=== PATIENT | male | born 1970 | race Caucasian/White ===

== ENCOUNTER 2022-04-17 10:56 | Outpatient (REF) | payer BC, SELFPAY ==
[2022-04-17 11:07] LABS: MANUAL DIFF FLAG NO
[2022-04-17 11:23] LABS: Appearance Urine Clear; Color Urine Yellow; Glucose Urine UA Negative (Negative); Leukocyte Esterase Urine Negative (Negative); Nitrite Urine Negative (Negative); Specific Gravity - Urine >= 1.030 (1.005-1.025); Urine Blood Negative (Negative); Urine Ketones Trace mg/dL (Negative); Urine Protein Trace mg/dL (Neg-Trace)
[2022-04-17 11:25] LABS: Basophils Absolute Auto 0.1 X10*3/uL (0.0-0.2); Basophils Percent Auto 0.7 % (0-2); Eosinophils Absolute Auto 0.4 X10*3/uL (0.0-0.4); Eosinophils Percent Auto 6.2 % (0-4); Hematocrit 38.9 % (42.0-52.0); Hemoglobin 13.4 g/dl (14.0-18.0); Imm Gran Abs Auto 0.02 X10*3/uL (0.00-0.03); Imm Gran Pct Auto 0.3 % (0.0-0.4); Lymphocytes Absolute Auto 2.2 X10*3/uL (1.2-4.9); Lymphocytes Percent Auto 30.2 % (20-40); Mean Corpuscular HGB Conc 34.4 g/dl (31.0-36.0); Mean Corpuscular Hemoglobin 30.7 pg (27.0-33.0); Mean Platelet Volume 10.3 fL (9.4-12.4); Monocytes Absolute Auto 0.6 X10*3/uL (0.1-1.2); Monocytes Percent Auto 8.4 % (2-11); Neutrophils Absolute Auto 3.9 x10*3/uL (2.0-8.3); Neutrophils Percent Auto 54.2 % (45-73); Platelet Count 245 X10*3/uL (160-400); Red Blood Count 4.37 X10*6/uL (4.60-5.80); Red Cell Distribution Width 13.2 % (11.0-16.0); White Blood Count 7.2 X10*3/uL (4.8-10.8)
[2022-04-17 11:26] LABS: Bacteria Urine None Seen (None Seen); RBC Urine 0-2 /HPF (0-2); Squamous Epithelial Cell Urine 0-2 /HPF (0-2); WBC Urine 0-5 /HPF (0-5)
[2022-04-17 11:59] LABS: Estimated Average Glucose 171 mg/dL; Hemoglobin A1c % 7.6 %
[2022-04-17 12:59] LABS: Alanine Aminotransferase 47 U/L (0-40); Alkaline Phosphatase 71 U/L (39-117); Anion Gap 13 (12-20); Aspartate Amino Transferase 27 U/L (5-37); Bilirubin Total 0.6 mg/dL (0.0-1.0); Blood Urea Nitrogen 16 mg/dL (9-16); Calcium 9.2 mg/dL (8.4-10.2); Carbon Dioxide 22 mmol/L (22-29); Chloride 108 mmol/L (96-108); Cholesterol 119 mg/dL; Estimated Glomerular Filt Rate > 60; Glucose Fasting 171 mg/dL (60-99); HDL Cholesterol 35 mg/dL; LDL Cholesterol Calculated 54 mg/dl; Potassium 4.2 mmol/L (3.3-5.1); Sodium 139 mmol/L (135-145); Total Protein 6.4 g/dL (6.5-8.0); Triglycerides 150 mg/dL
[2022-04-17 13:03] LABS: PSA,Total (Free>4and<10) 0.17 ng/mL (0.00-4.00)
[2022-04-17 16:18] LABS: Creatinine Urine 225.39 mg/dL; Microalbum/Creatinine Ratio Ur 8.4 ug/mg cr
== END 2022-04-17 10:57 | disposition home or self-care (01) ==
LOC: HO.LNP 10:56
PROVIDERS: Visit Provider Internal Medicine
DX: Z00.00 Encounter for general adult medical examination without abnormal findings (principal); Z12.5 Encounter for screening for malignant neoplasm of prostate; E11.9 Type 2 diabetes mellitus without complications; K21.00 Gastro-esophageal reflux disease with esophagitis, without bleeding
CPT/HCPCS: 80053; 80061; 81001; 82043; 83036; 84153; 85025

== ENCOUNTER 2022-05-11 13:30 | Outpatient (REF) | payer BC, SELFPAY ==
[2022-05-11 15:12] LABS: Lipase 46 U/L (8-78)
[2022-05-17 13:09] LABS: Vitamin D 25-OH, D2 21 ng/mL; Vitamin D 25-OH, D3 11 ng/mL; Vitamin D 25-OH, Total 32 ng/mL (30-100)
[2022-05-17 13:27] LABS: Transglutaminase Ab IgG <1.0 U/mL; Transglutaminase IgA <1.0 U/mL
== END 2022-05-11 13:31 | disposition home or self-care (01) ==
LOC: HO.LAB 13:30
PROVIDERS: PCP Internal Medicine; Visit Provider Nurse Practitioner Family
DX: R10.9 Unspecified abdominal pain (principal); K21.9 Gastro-esophageal reflux disease without esophagitis; E55.9 Vitamin D deficiency, unspecified
CPT/HCPCS: 36415; 82306; 83690; 86364

== ENCOUNTER 2023-04-18 11:08 | Outpatient (REF) | payer BC, SELFPAY ==
[2023-04-18 11:10] LABS: MANUAL DIFF FLAG NO
[2023-04-18 11:22] LABS: Basophils Absolute Auto 0.1 X10*3/uL (0.0-0.2); Basophils Percent Auto 0.6 % (0-2); Eosinophils Absolute Auto 0.4 X10*3/uL (0.0-0.4); Eosinophils Percent Auto 4.5 % (0-4); Hematocrit 41.3 % (42.0-52.0); Hemoglobin 14.2 g/dl (14.0-18.0); Imm Gran Abs Auto 0.03 X10*3/uL (0.00-0.03); Imm Gran Pct Auto 0.3 % (0.0-0.4); Lymphocytes Absolute Auto 2.2 X10*3/uL (1.2-4.9); Lymphocytes Percent Auto 24.1 % (20-40); Mean Corpuscular HGB Conc 34.4 g/dl (31.0-36.0); Mean Corpuscular Hemoglobin 29.6 pg (27.0-33.0); Mean Corpuscular Volume 86.2 fL (80.0-98.0); Monocytes Absolute Auto 0.6 X10*3/uL (0.1-1.2); Monocytes Percent Auto 6.9 % (2-11); Neutrophils Absolute Auto 5.9 x10*3/uL (2.0-8.3); Neutrophils Percent Auto 63.6 % (45-73); Platelet Count 238 X10*3/uL (160-400); Red Blood Count 4.79 X10*6/uL (4.60-5.80); Red Cell Distribution Width 12.8 % (11.0-16.0); White Blood Count 9.3 X10*3/uL (4.8-10.8)
[2023-04-18 11:29] LABS: Estimated Average Glucose 157 mg/dL; Hemoglobin A1c % 7.1 % (<6.0)
[2023-04-18 11:42] LABS: Alanine Aminotransferase 49 U/L (0-40); Albumin Level 4.1 g/dL (3.5-5.0); Alkaline Phosphatase 76 U/L (39-117); Anion Gap 12 (12-20); Aspartate Amino Transferase 36 U/L (5-37); Bilirubin Total 0.7 mg/dL (0.0-1.0); Blood Urea Nitrogen 14 mg/dL (9-16); Calcium 9.8 mg/dL (8.4-10.2); Carbon Dioxide 24 mmol/L (22-29); Chloride 108 mmol/L (96-108); Estimated Glomerular Filt Rate > 60; Glucose Random 132 mg/dL (60-115); Potassium 3.9 mmol/L (3.3-5.1); Sodium 140 mmol/L (135-145); Total Protein 6.8 g/dL (6.5-8.0)
[2023-04-18 11:54] LABS: PSA,Total (Free>4and<10) 0.17 ng/mL (0.00-4.00)
== END 2023-04-18 11:09 | disposition home or self-care (01) ==
LOC: HO.LNP 11:08
PROVIDERS: Visit Provider Internal Medicine
DX: Z00.00 Encounter for general adult medical examination without abnormal findings (principal); Z12.5 Encounter for screening for malignant neoplasm of prostate
CPT/HCPCS: 80053; 83036; 84153; 85025

== ENCOUNTER 2023-08-05 13:10 | Outpatient (REF) | payer BC, SELFPAY ==
[2023-08-05 13:13] LABS: MANUAL DIFF FLAG NO
[2023-08-05 13:45] LABS: Basophils Absolute Auto 0.1 X10*3/uL (0.0-0.2); Basophils Percent Auto 0.7 % (0-2); Eosinophils Absolute Auto 0.8 X10*3/uL (0.0-0.4); Eosinophils Percent Auto 7.7 % (0-4); Hematocrit 32.3 % (42.0-52.0); Hemoglobin 10.7 g/dl (14.0-18.0); Imm Gran Abs Auto 0.04 X10*3/uL (0.00-0.03); Imm Gran Pct Auto 0.4 % (0.0-0.4); Lymphocytes Absolute Auto 2.2 X10*3/uL (1.2-4.9); Lymphocytes Percent Auto 21.4 % (20-40); Mean Corpuscular HGB Conc 33.1 g/dl (31.0-36.0); Mean Corpuscular Hemoglobin 27.5 pg (27.0-33.0); Mean Platelet Volume 10.3 fL (9.4-12.4); Monocytes Absolute Auto 0.9 X10*3/uL (0.1-1.2); Monocytes Percent Auto 9.4 % (2-11); Neutrophils Absolute Auto 6.1 x10*3/uL (2.0-8.3); Neutrophils Percent Auto 60.4 % (45-73); Platelet Count 312 X10*3/uL (160-400); Red Blood Count 3.89 X10*6/uL (4.60-5.80); Red Cell Distribution Width 14.5 % (11.0-16.0)
[2023-08-05 14:08] LABS: Iron 29 mcg/dL (45-160); Percent Iron Saturation 5 % (15-50); Total Iron Binding Capacity 529 mcg/dL (228-428); Unsaturated Iron Binding > 500 ug/dL
== END 2023-08-05 13:11 | disposition home or self-care (01) ==
LOC: HO.LNP 13:10
PROVIDERS: Visit Provider Internal Medicine
DX: D64.9 Anemia, unspecified (principal)
CPT/HCPCS: 83540; 85025

== ENCOUNTER 2023-08-19 11:11 | Outpatient (REF) | payer BC, SELFPAY ==
[2023-08-19 11:12] LABS: MANUAL DIFF FLAG NO
[2023-08-19 11:39] LABS: Basophils Absolute Auto 0.1 X10*3/uL (0.0-0.2); Basophils Percent Auto 0.5 % (0-2); Eosinophils Absolute Auto 0.1 X10*3/uL (0.0-0.4); Eosinophils Percent Auto 0.7 % (0-4); Hematocrit 34.8 % (42.0-52.0); Imm Gran Abs Auto 0.09 X10*3/uL (0.00-0.03); Imm Gran Pct Auto 0.5 % (0.0-0.4); Lymphocytes Absolute Auto 2.9 X10*3/uL (1.2-4.9); Lymphocytes Percent Auto 15.2 % (20-40); Mean Corpuscular HGB Conc 31.6 g/dl (31.0-36.0); Mean Corpuscular Hemoglobin 26.8 pg (27.0-33.0); Mean Corpuscular Volume 84.7 fL (80.0-98.0); Mean Platelet Volume 10.6 fL (9.4-12.4); Monocytes Absolute Auto 1.3 X10*3/uL (0.1-1.2); Monocytes Percent Auto 6.5 % (2-11); Neutrophils Absolute Auto 14.7 x10*3/uL (2.0-8.3); Neutrophils Percent Auto 76.6 % (45-73); Platelet Count 325 X10*3/uL (160-400); Red Blood Count 4.11 X10*6/uL (4.60-5.80); Red Cell Distribution Width 14.6 % (11.0-16.0); White Blood Count 19.2 X10*3/uL (4.8-10.8)
== END 2023-08-19 11:12 | disposition home or self-care (01) ==
LOC: HO.LNP 11:11
PROVIDERS: Visit Provider Internal Medicine
DX: D64.9 Anemia, unspecified (principal)
CPT/HCPCS: 85025

== ENCOUNTER 2023-08-22 15:46 | Outpatient (REF) | payer BC, SELFPAY ==
[2023-08-22 15:52] LABS: MANUAL DIFF FLAG NO
[2023-08-22 16:07] LABS: Basophils Absolute Auto 0.1 X10*3/uL (0.0-0.2); Basophils Percent Auto 0.6 % (0-2); Eosinophils Absolute Auto 0.7 X10*3/uL (0.0-0.4); Eosinophils Percent Auto 6.6 % (0-4); Hematocrit 33.4 % (42.0-52.0); Hemoglobin 10.7 g/dl (14.0-18.0); Imm Gran Abs Auto 0.03 X10*3/uL (0.00-0.03); Imm Gran Pct Auto 0.3 % (0.0-0.4); Lymphocytes Absolute Auto 2.5 X10*3/uL (1.2-4.9); Lymphocytes Percent Auto 25.4 % (20-40); Mean Corpuscular Hemoglobin 26.6 pg (27.0-33.0); Mean Corpuscular Volume 82.9 fL (80.0-98.0); Mean Platelet Volume 10.7 fL (9.4-12.4); Monocytes Absolute Auto 0.6 X10*3/uL (0.1-1.2); Monocytes Percent Auto 5.9 % (2-11); Neutrophils Percent Auto 61.2 % (45-73); Platelet Count 384 X10*3/uL (160-400); Red Blood Count 4.03 X10*6/uL (4.60-5.80); Red Cell Distribution Width 14.3 % (11.0-16.0); White Blood Count 9.8 X10*3/uL (4.8-10.8)
== END 2023-08-22 15:47 | disposition home or self-care (01) ==
LOC: HO.LNP 15:46
PROVIDERS: Visit Provider Internal Medicine
DX: R39.9 Unspecified symptoms and signs involving the genitourinary system (principal)
CPT/HCPCS: 85025

== ENCOUNTER 2023-08-23 10:22 | Outpatient (REF) | payer BC, SELFPAY ==
[2023-08-23 10:54] LABS: Appearance Urine Cloudy; Color Urine Yellow; Glucose Urine UA Negative (Negative); Leukocyte Esterase Urine Moderate (2+) (Negative); Nitrite Urine Negative (Negative); Specific Gravity - Urine 1.015 (1.005-1.025); UMIC TRIGGER UA YES; Urine Blood Negative (Negative); Urine Ketones Negative (Negative); Urine Protein 30 (1+) mg/dL (Neg-Trace)
[2023-08-23 11:00] LABS: Bacteria Urine 4+ (None Seen); Hyaline Casts Urine 0-2 /LPF (0-2); RBC Urine 0-2 /HPF (0-2); Squamous Epithelial Cell Urine 0-2 /HPF (0-2); WBC Urine >50 /HPF (0-5)
== END 2023-08-23 10:23 | disposition home or self-care (01) ==
LOC: HO.LNP 10:22
PROVIDERS: Visit Provider Internal Medicine
DX: R39.9 Unspecified symptoms and signs involving the genitourinary system (principal)
CPT/HCPCS: 81001; 87086; 87088; 87186

== ENCOUNTER 2023-10-14 10:58 | Outpatient (REF) | payer BC, SELFPAY ==
[2023-10-14 11:48] LABS: Estimated Average Glucose 120 mg/dL; Hemoglobin A1c % 5.8 % (<6.0)
[2023-10-14 11:54] LABS: Alanine Aminotransferase 27 U/L (0-40); Albumin Level 4.1 g/dL (3.5-5.0); Alkaline Phosphatase 72 U/L (39-117); Aspartate Amino Transferase 33 U/L (5-37); Bilirubin Direct 0.1 mg/dL (0.0-0.5); Bilirubin Total 0.4 mg/dL (0.0-1.0); Cholesterol 97 mg/dL (<200); Glucose Fasting 139 mg/dL (60-99); HDL Cholesterol 37 mg/dL (>40); Iron 97 mcg/dL (45-160); LDL Cholesterol Calculated 28 mg/dL (<100); Percent Iron Saturation 38 % (15-50); Total Iron Binding Capacity 256 mcg/dL (228-428); Triglycerides 161 mg/dL (<150); Unsaturated Iron Binding 159 ug/dL
[2023-10-14 12:37] LABS: Reflex LDLD? No
== END 2023-10-14 10:59 | disposition home or self-care (01) ==
LOC: HO.LNP 10:58
PROVIDERS: Visit Provider Internal Medicine
DX: E11.9 Type 2 diabetes mellitus without complications (principal); D64.9 Anemia, unspecified
CPT/HCPCS: 80061; 80076; 82947; 83036; 83540

== ENCOUNTER 2024-04-21 07:00 | Outpatient (REF) | payer BC, SELFPAY ==
[2024-04-21 10:47] LABS: MANUAL DIFF FLAG NO
[2024-04-21 11:03] LABS: Basophils Percent Auto 0.7 % (0-2); Eosinophils Absolute Auto 0.6 X10*3/uL (0.0-0.4); Eosinophils Percent Auto 9.7 % (0-4); Hematocrit 42.1 % (42.0-52.0); Hemoglobin 14.2 g/dl (14.0-18.0); Imm Gran Abs Auto 0.02 X10*3/uL (0.00-0.03); Imm Gran Pct Auto 0.3 % (0.0-0.4); Lymphocytes Absolute Auto 1.9 X10*3/uL (1.2-4.9); Lymphocytes Percent Auto 31.4 % (20-40); Mean Corpuscular HGB Conc 33.7 g/dl (31.0-36.0); Mean Corpuscular Volume 86.1 fL (80.0-98.0); Monocytes Absolute Auto 0.4 X10*3/uL (0.1-1.2); Monocytes Percent Auto 7.1 % (2-11); Neutrophils Absolute Auto 3.1 x10*3/uL (2.0-8.3); Neutrophils Percent Auto 50.8 % (45-73); Platelet Count 209 X10*3/uL (160-400); Red Blood Count 4.89 X10*6/uL (4.60-5.80); Red Cell Distribution Width 13.5 % (11.0-16.0); White Blood Count 6.1 X10*3/uL (4.8-10.8)
[2024-04-21 11:17] LABS: Appearance Urine Clear; Color Urine Yellow; Glucose Urine UA Negative (Negative); Leukocyte Esterase Urine Negative (Negative); Nitrite Urine Negative (Negative); PH 6.5 (5.0-9.0); Urine Blood Negative (Negative); Urine Ketones Negative (Negative); Urine Protein Negative (Neg-Trace)
[2024-04-21 11:18] LABS: Estimated Average Glucose 169 mg/dL; Hemoglobin A1C 219.7011 umol/L; Hemoglobin A1c % 7.5 % (<6.0); Total Hemoglobin (HGBA1C) 3748.7475 umol/L
[2024-04-21 11:32] LABS: Alanine Aminotransferase 46 U/L (0-40); Anion Gap 11 (12-20); Aspartate Amino Transferase 57 U/L (5-37); Bilirubin Total 0.7 mg/dL (0.0-1.0); Blood Urea Nitrogen 10 mg/dL (9-16); Calcium 8.8 mg/dL (8.4-10.2); Carbon Dioxide 21 mmol/L (22-29); Chloride 110 mmol/L (96-108); Cholesterol 136 mg/dL (<200); Estimated Glomerular Filt Rate > 60; Glucose Fasting 158 mg/dL (60-99); HDL Cholesterol 29 mg/dL (>40); LDL Cholesterol Calculated 84 mg/dL (<100); Potassium 3.7 mmol/L (3.3-5.1); Sodium 138 mmol/L (135-145); Triglycerides 117 mg/dL (<150)
[2024-04-21 11:37] LABS: PSA,Total (Free>4and<10) 0.15 ng/mL (0.00-4.00)
[2024-04-21 11:41] LABS: Alkaline Phosphatase 76 U/L (39-117)
--- OUTSIDE RECORDS SUMMARY | 2024-04-21 12:12 | XMS_ITS | Data Portability ---
Author Organization [place] [facility], [facility] Address [address] [place] [address] Care Team Providers Care Cut Out Stitcher Name Role Phone PB FRAIRE Primary Care Provider Assessment Encounter Date Assessment Date Assessment LastModified by Organization Details LastModified Time 11/28/2023 11/28/2023 Assessment : Pt able to perform step ex today on L3. Plan : Cont to focus on LE strengthening and balance. (12/04). [email or web address] Not available 11/27/2023 16:22:29 12/05/2023 12/05/2023 Assessment : Pt demonstrates all ex's well and w/good technique. Plan : D/C today. [email or web address] Not available 12/05/2023 07:57:00 12/26/2023 12/26/2023 History: The patient is approximately 6 months status post a left total knee arthroplasty and presents for routine follow-up per our request. Knee is doing better. Had a possible postoperative DVT and/or PE. Apparently tests were inconclusive. No longer on anticoagulation. Takes ibuprofen for discomfort as needed. Swelling and motion have improved. Completed outpatient therapy. His primary complaint is a sensation of instability or imbalance. This was very noticeable when he was golfing and mowing his lawn. He had told me in the past that he had significant balance issues preoperatively but he feels they are worse now. He feels like it is a side to side imbalance and not in extension and flexion imbalance due to weakness. PMH/PSH/MEDS/ALL/ FMH/SOC HX/ROS all reviewed in detail per my medical intake sheet. ROS: The patient denies fevers, chills, neurovascular changes, history of trauma. Exam: Vitals signs as noted. Alert and oriented x3. Appears well and in no acute distress. Extremities: Incision is well-healed. Calves are soft and nontender. No evidence of DVT. No lower extremity edema. Neurovascular status at baseline. Range of motion is 0-125 easily. Ligaments are stable to varus and valgus stresses. These were stressed multiple times and there is no sign of instability. No significant effusion. Quad strength is 5 out of 5 with no lag X-rays: Radiographs were not obtained today. Assessment: The patient is doing well by all objective criteria approximately 6 months s/p TKA. He has complaints of balance issues which are disrupting his quality of life significantly. I have found nothing on examination to explain this. Plan: I have prescribed a patient in economy hinged brace to help support the collateral ligaments. He is instructed to wear this when he is being active to see if this rectifies the sensation of instability that he feels. The patient is ambulatory, but has weakness and/or instability of their extremity which requires stabilization from this semi-rigid/rigid orthosis to improve their function. Verbal and written instructions for the use and application of this item were given. Patient was instructed that should the brace result in increased pain, decreased sensation, increased swelling or an overall worsening of their medical condition, to please contact our office immediately. The patient will continue with a home exercise program for additional strengthening and conditioning. Otherwise, the patient will continue with activity as tolerated. The patient was advised to take occasional OTC acetaminophen for residual discomfort. The potential benefits, risks, and side effects were explained at length. Total knee replacement activity precautions were reviewed. The need for antibiotic prophylaxis for dental visits was discussed. Patient will return in 6-8 weeks after wearing the brace. [email or web address] Not available 12/27/2023 15:46:09 04/09/2024 04/09/2024 I am seeing the patient today under the supervision of Dr Sanabria who was available but who did not see the patient. Patient follows up. Previously was seen by Amadou. Patient still complains of similar symptoms. Diclofenac's help in his compression sleeve is helping. Pain mainly laterally. Mildly tender medial tibial plateau. Full range of motion. Limits are stable post is intact. X-rays were reviewed by myself today. Patient's main complaint is laterally over his ITB in. After long discussion we decided to inject the lateral IT band under sterile technique please see procedure note. She was also given IT band stretches will continue current submerge refrain from taking diclofenac to see if the cortisone is going to help his symptoms. We will follow up in 6 weeks [email or web address] Not available 04/09/2024 08:38:29 Plan of Treatment Reminders Order Date Submit Date Provider Last Modified By Organization Details Last Modified Time Details Appointments RECHECK 15 2024 08:00A Royer Gonzalez PA-C Not available Not available Not available Lab None recorded. Referral None recorded. Procedures None recorded. Surgeries None recorded. Imaging XR, knee, 3 view - left knee rm 208 2023 024 thiago [facility], [address] [place] [address], [address], 02/24/2024 12:18:46 Medication Orders diclofena c sodium 75 mg tablet,de layed release 2023 024 [id number], [address] [place] [address], [address], 02/24/2024 11:14:06 Patient TargetsNo targets recorded. Patient InstructionsNo instructions recorded. Reason for Referral None Reported. Results Created Date Observation Date Name Description Value Unit Range Abnormal Flag Note LastModifiedBy Organization Detail LastModifiedTime 11/30/19 24 09/30/2020 imagi ng/di agnos tic resul t No observ ation record ed. [email or web address] Not Available 11/01 05:12:04 11/30/19 24 12/06/2022 imagi ng/di agnos tic resul t No observ ation record ed. [email or web address] Not Available 11/01 05:12:21 02/24/20 24 02/24/2024 XR, knee, 3 view [email or web address] ?Encry pted=s hAaTro YD8dLq bEUv6g %2BXZw aYqtaq 0bqfl% 2Fg9IQ a4ajBk vP9nXo QUaueC m3YtLR FvZlgJ JJ8mAn HZtai3 6p9721 AC0Kqa XmGUqe lKiQtr MwF INTERFACE [facility] [address], [place], [address], 02/24/2024 10:52:09 02/24/20 24 02/24/2024 XR, knee, 3 view [email or web address] ?Encry pted=s hAaTro YD8dLq bEUv6g %2BXZw aYqtaq 0bqfl% 2Fg9IQ a4ajBk vP9nXo QUaueC m3YtLR FvZlgJ JJ8mAn HZtai3 3c3671 AC0Kqa XmGUqe lKiQtr MwF INTERFACE [facility] [address], [place], [address], 02/24/2024 10:52:11 Result Notes None recorded. Problems Name Problem SNOMED Code Status Onset Date Resolution Date Notes Provider Name and Address Organization Details Recorded Time Pain of knee region 4423122916 Active 2024 Lorenzo Gonzalez PA-C [address], [place], [address], [facility] 5 08:38:36 Osteoarthri tis of left knee joint 3697072612459 09 Active 2023 maura burton [facility] 4 11:22:06 Candidiasis of mouth 75249491 Active 2023 Perla Bashir APRN [address], [place], [address], [facility] 4 11:45:07 Problem Notes None recorded. Procedures Surgical History Date Name Laterality Status Provider Name and Address Organization Details Recorded Time 4 47420 Therapeutic Exercise (1:1) completed Larry Lindo PT [address], [place], [address], [facility] 09/25/2023 16:11:13 4 10668: Hot or Cold Pack completed Larry Pyser, PT [address], [place], [address], [facility] 09/25/2023 16:11:13 4 77805 Therapeutic Exercise (1:1) completed Larry Pyser, PT [address], [place], [address], [facility] 09/23/2023 18:41:41 4 42304: Hot or Cold Pack completed Larry Pyser, PT [address], [place], [address], [facility] 09/24/2023 16:49:14 4 19677 Therapeutic Exercise (1:1) completed Brenda Slatery, STOCK SAW OPERATOR [address], [place], [address], [facility] 09/20/2023 09:08:23 4 09533: Hot or Cold Pack completed Brenda Slatery, STOCK SAW OPERATOR [address], [place], [address], [facility] 09/20/2023 09:08:20 4 30854 Therapeutic Exercise (1:1) completed Larry Pyser, PT [address], [place], [address], [facility] 09/13/2023 07:43:25 4 98283: Hot or Cold Pack completed Larry Pyser, PT [address], [place], [address], [facility] 09/13/2023 07:43:25 4 10799 Therapeutic Exercise (1:1) completed Larry Pyser, PT [address], [place], [address], [facility] 09/11/2023 12:07:33 4 70369: Hot or Cold Pack completed Larry Pyser, PT [address], [place], [address], [facility] 09/12/2023 08:55:04 4 58202 Therapeutic Exercise (1:1) completed Brenda Ansari, STOCK SAW OPERATOR [address], [place], [address], [facility] 09/05/2023 08:39:01 4 08552: Hot or Cold Pack completed Brenda Ansari, STOCK SAW OPERATOR [address], [place], [address], [facility] 09/05/2023 08:39:01 4 34654 Therapeutic Exercise (1:1) completed Brenda Ansari STOCK SAW OPERATOR [address], [place], [address], [facility] 09/02/2023 19:43:43 4 12897: Hot or Cold Pack completed Brenda Ansari STOCK SAW OPERATOR [address], [place], [address], [facility] 09/03/2023 14:28:22 4 09747 Therapeutic Exercise (1:1) completed Brenda Ansari STOCK SAW OPERATOR [address], [place], [address], [facility] 08/29/2023 12:57:50 4 44331: Hot or Cold Pack completed Brenda Ansari STOCK SAW OPERATOR [address], [place], [address], [facility] 08/30/2023 08:17:58 4 54548 Therapeutic Exercise (1:1) completed Brenda Ansari STOCK SAW OPERATOR [address], [place], [address], [facility] 08/21/2023 16:04:53 4 83426: Hot or Cold Pack completed Brenda Ansari STOCK SAW OPERATOR [address], [place], [address], [facility] 08/21/2023 16:04:53 4 14683 Therapeutic Exercise (1:1) completed Brenda Ansari, STOCK SAW OPERATOR [address], [place], [address], [facility] 08/20/2023 08:24:35 4 36749: Hot or Cold Pack completed Brenda Ansari, STOCK SAW OPERATOR [address], [place], [address], [facility] 08/20/2023 08:26:43 4 58897 Therapeutic Exercise (1:1) completed Larry Lindo, PT [address], [place], [address], [facility] 08/14/2023 08:17:11 4 43450: Hot or Cold Pack completed Larry Lindo, PT [address], [place], [address], [facility] 08/15/2023 08:48:46 4 11919: Manual therapy completed Larry Lindo, PT [address], [place], [address], [facility] 08/14/2023 08:33:15 4 63046 Therapeutic Exercise (1:1) cancelled Manuela Edwards PTA [address], [place], [address], [facility] 07/18/2023 18:37:56 4 71574: Hot or Cold Pack cancelled Manuela Edwards STOCK SAW OPERATOR [address], [place], [address], [facility] 07/18/2023 18:37:56 4 72014 Therapeutic Exercise (1:1) completed Candice Krishna, PT [address], [place], [address], [facility] 07/17/2023 10:40:02 4 06882: Hot or Cold Pack completed Candice Krishna, PT [address], [place], [address], [facility] 07/17/2023 10:40:11 4 17227 Therapeutic Exercise (1:1) completed Candice Krishna, PT [address], [place], [address], [facility] 07/16/2023 18:48:39 4 87683: Low complexity PT Eval completed Candice Krishna, PT [address], [place], [address], [facility] 07/16/2023 18:48:42 Imaging Results Imaging Date Name Status LastModified by Organiz ation Details LastModified Time 09/30/2020 imaging/diag nostic result completed Information not available 11/30/2023 05:12:04 12/06/2022 imaging/diag nostic result completed Information not available 11/30/2023 05:12:21 02/24/2024 XR, knee, 3 view completed INTERFACE [facility] [address], [place], [address], 02/24/2024 10:52:09 02/24/2024 XR, knee, 3 view completed INTERFACE [facility] [address], [place], [address], 02/24/2024 10:52:11 Procedure Notes None recorded. Medical Equipment None Reported. Allergies No known drug allergies Medications Name Sig Start Date Stop Date Status Note LastModified by Organization Details LastModified Time Prescriptio n - New 10/16 completed post op med list Not Available Not Available Not Available celecoxib 200 mg capsule 10/16 completed Not Available Not Available Not Available amoxicillin 500 mg capsule 12/25 completed Not Available Not Available Not Available atorvastati n 80 mg tablet TAKE 1 TABLET BY MOUTH EVERY DAY FOR 90 DAYS active Not Available Not Available No t Available nystatin 100,000 unit/mL oral suspension Take 5 mL 4 times a day by oral route for 7 days. 10/16 completed Not Available Not Available Not Available sildenafil 50 mg tablet TAKE 1 TABLET BY MOUTH ONCE A DAY NEEDED 30 DAYS active Not Available Not Available No t Available sulindac 150 mg tablet TAKE ONE TABLET BY MOUTH 2 TIMES A DASY FOR 30 DAYS active Not Available Not Available No t Available tramadol 50 mg tablet Take by oral route for 6 days. 10/16 completed Not Available Not Available Not Available sildenafil 100 mg tablet TAKE 1 TABLET BY MOUTH EVERY DAY NEEDED FOR 30 DAYS 10/16 completed Not Available Not Available Not Available cefadroxil 500 mg capsule TAKE 1 CAPSULE BY MOUTH EVERY 12 HOURS FOR 14 DAYS 10/16 completed Not Available Not Available Not Available potassium chloride ER 20 mEq tablet,exte nded release(par t/cryst) TAKE 1 TABLET BY MOUTH TWO TIMES A DAY 10/16 completed Not Available Not Available Not Available methocarbam ol 750 mg tablet 10/16 completed Not Available Not Available Not Available aspirin 325 mg tablet,kadie yed release TAKE 1 TABLET BY MOUTH TWICE A DAY DIRECTED 10/16 completed Not Available Not Available Not Available cephalexin 500 mg capsule TAKE 1 CAPSULE BY MOUTH EVERY 8 HOURS FOR 5 DAYS 10/16 completed Not Available Not Available Not Available pantoprazol e 40 mg tablet,kadie yed release TAKE 1 TABLET BY MOUTH EVERY DAY FOR 30 DAYS 12/25 completed Not Available Not Available Not Available pseudoephed rine-guaife nesin ER 80-700 mg tablet,exte nded release DO NOT DRIVE WHILE TAKING THIS MEDICATIO N 10/16 completed Statu s: 'Curr ent'; Not Available Not Available Not Available diclofenac sodium 75 mg tablet,kadie yed release Take 1 tablet twice a day by oral route for 60 days. active Not Available Not Available No t Available gabapentin 100 mg capsule TAKE 1 CAPSULE BY MOUTH THREE TIMES A DAY 10/16 completed Not Available Not Available Not Available Novolog U-100 Insulin aspart 100 unit/mL subcutaneou s solution INJECT 10 TO 20 UNITS TWICE A DAY active Not Available Not Available No t Available oxycodone 5 mg tablet Take by oral route for 7 days. 10/16 completed Not Available Not Available Not Available Novolog FlexPen U-100 Insulin aspart 100 unit/mL (3 mL) subcutaneou s INJECT 10 TO 20 UNITS SUBCUTANE OUSLY TWICE A DAY 10/16 completed Not Available Not Available Not Available tadalafil 10 mg tablet TAKE 1 TO 2 TABLETS BY MOUTH DAILY NEEDED FOR 30 DAYS active Not Available Not Available No t Available BD Ultra-Fine Mini Pen Needle 31 gauge x 3/16 USE 4 TIMES A DAY 10/16 completed Not Available Not Available Not Available Lantus Solostar U-100 Insulin 100 unit/mL (3 mL) subcutaneou s pen INJECT 50 UNITS UNDER THE SKIN EVERY DAY active Not Available Not Available No t Available oxycodone HCl-oxycodo ne-ASA 1-[address] WHILE TAKING THIS MEDICATIO N 10/16 completed Statu s: 'Curr ent'; Not Available Not Available Not Available Eliquis 5 mg tablet TAKE 1 TABLET BY MOUTH TWICE A DAY FOR 30 DAYS 2023 active Not Available Not Available Not Avai lable BD Ultra-Fine Micro Pen Needle 32 gauge x 1/4 USE DIRECTED 3 TIMES A DAY active Not Available Not Available No t Available Eliquis DVT-PE Treatment 30-Day Starter 5 mg (74 tablets) in dose pack TAKE 2 TABLETS BY MOUTH TWO TIMES A DAY FOR 7 DAYS THEN TAKE 1 TABLET BY MOUTH TWO TIMES A DAY THERELEELAE R. 10/16 completed Not Available Not Available Not Available FreeStyle Ray 2 Sensor kit USE DIRECTED CHANGE SENSOR EVERY 14 DAYS 12/25 completed Not Available Not Available Not Available Mounjaro 5 mg/0.5 mL subcutaneou s pen injector PLEASE SEE ATTACHED FOR DETAILED DIRECTION S active Not Available Not Available No t Available Mounjaro 2.5 mg/0.5 mL subcutaneou s pen injector INJECT 0.5 ML (2.5 MG TOTAL) UNDER THE SKIN EVERY 7 DAYS 12/25 completed Not Available Not Available Not Available FreeStyle Ray 3 Sensor device TO MONITOR BLOOD GLUCOSE, TO CHANGE THE SENSOR EVERY 14 DAYS FREESTYLE RAY 3 SENSOR active Not Available Not Available No t Available Vitals Date Recorded Body height Body mass index (BMI) Body weight Provider Name and Address Organization Details Last Updated DateTime 12/26/2023 184.15 cm 33.8 kg/m2 110295.87 g SULEMA GASTON [facility] 12/26/2023 13:48:29 Date Recorded Body height Body mass index (BMI) Body weight Provider Name and Address Organization Details Last Updated DateTime 02/24/2024 184.15 cm 33.8 kg/m2 318594.87 g Olivia Anneta [facility] 02/24/2024 10:38:32 Date Recorded Body height Body mass index (BMI) Body weight Provider Name and Address Organization Details Last Updated DateTime 04/09/2024 184.15 cm 33.8 kg/m2 426938.87 g Prem Ward [facility] 04/09/2024 08:15:41 Social History None recorded. Functional Status None recorded. Mental Status None recorded. Family History Nothing Reported. Medical History No medical history recorded. Past Encounters Encounter ID Performer Location Encounter Start Date Encounter Closed Date Diagnosis/Indication Diagnosis SNOMED-CT Code Diagnosis ICD10 Code Diagnosis Note [id number] Shakila Chan CNP [facility] 2nd floor [address] [place] [address] 06/17/2023 10:45:30 06/17/2023 11:03:33 Osteoarthritis of left knee joint 4265207526 52825 M17.12 [id number] Jeferson Birch MD [facility] 2nd floor [address] [place] [address] 06/17/2023 14:55:28 06/17/2023 15:13:20 Osteoarthritis of left knee joint 1831295234 86812 M17.12 [id number] Candice Krishna PT [facility] [address] [place] [address] 07/12/2023 15:15:46 07/12/2023 17:06:22 Follow-up orthopedic assessment 492685266 Z47.1 History of left total knee replacement 3426703532 625598 Z96.975 [id number] Candice Krishna PT [facility] [address] [place] [address] 07/16/2023 15:23:03 07/16/2023 17:14:58 Follow-up orthopedic assessment 576127008 Z47.1 History of left total knee replacement 1228464231 490260 Z96.365 [id number] Shereen Mcclendon PA-C [facility] [address] [place] [address] 07/18/2023 10:03:34 08/09/2023 14:07:20 History of left total knee replacement 3490729570 748428 Z96.652 Postoperative visit 1836 04150 Z48.89 [id number] Shereen Mcclendon PA-C [facility] [address] [place] [address] 08/01/2023 10:41:07 08/23/2023 15:13:34 Postoperative visit 407949640 Z48.89 Knee joint prosthesis present 8090797521 02 Z96.206 [id number] Larry Pyser, PT [facility] [address] [place] [address] 08/15/2023 07:46:35 08/15/2023 09:27:58 Follow-up orthopedic assessment 213211845 Z47.1 History of left total knee replacement 4682536805 260313 Z96.376 [id number] Shereen Mcclendon PA-C [facility] [address] [place] [address] 08/19/2023 08:30:52 09/11/2023 09:20:56 Postoperative visit 184129540 Z48.89 Knee joint prosthesis present 8883310814 02 Z96.540 [id number] Larry Pyser, PT [facility] [address] [place] [address] 08/20/2023 07:11:57 08/20/2023 08:06:23 Follow-up orthopedic assessment 554297268 Z47.1 History of left total knee replacement 9803488622 102976 Z96.551 [id number] Larry Pyser, PT [facility] [address] [place] [address] 08/22/2023 07:10:31 08/22/2023 08:00:59 Follow-up orthopedic assessment 546541654 Z47.1 History of left total knee replacement 5607016156 008935 Z96.061 [id number] Larry Pyser, PT [facility] [address] [place] [address] 08/30/2023 06:42:29 08/30/2023 07:44:28 Follow-up orthopedic assessment 471810457 Z47.1 History of left total knee replacement 7691403487 780042 Z96.232 [id number] Larry Pyser, PT [facility] [address] [place] [address] 09/03/2023 13:21:04 09/03/2023 14:40:03 Follow-up orthopedic assessment 112082428 Z47.1 History of left total knee replacement 3694717959 725462 Z96.418 [id number] Larry Pyser, PT [facility] [address] [place] [address] 09/06/2023 07:41:01 09/06/2023 08:14:55 Follow-up orthopedic assessment 143738468 Z47.1 History of left total knee replacement 2820933783 804683 Z96.503 [id number] Larry Pyser, PT [facility] [address] [place] [address] 09/12/2023 07:42:08 09/12/2023 09:08:45 Follow-up orthopedic assessment 138166338 Z47.1 History of left total knee replacement 0781875715 196183 Z96.279 [id number] Larry Pyser, PT [facility] [address] [place] [address] 09/16/2023 09:37:56 09/16/2023 11:08:23 Follow-up orthopedic assessment 482244239 Z47.1 History of left total knee replacement 2434098480 929627 Z96.154 [id number] Larry Pyser, PT [facility] [address] [place] [address] 09/20/2023 07:37:37 09/20/2023 08:47:03 Follow-up orthopedic assessment 513712698 Z47.1 History of left total knee replacement 9009830594 912461 Z96.111 [id number] Larry Pyser, PT [facility] [address] [place] [address] 09/24/2023 13:38:34 09/24/2023 14:37:52 Follow-up orthopedic assessment 456703210 Z47.1 History of left total knee replacement 9595321112 682987 Z96.035 [id number] Larry Pyser, PT [facility] [address] [place] [address] 09/26/2023 14:06:57 09/26/2023 14:57:55 Follow-up orthopedic assessment 944882884 Z47.1 History of left total knee replacement 6199894175 376271 Z96.524 [id number] Larry Pyser, PT [facility] [address] [place] [address] 10/01/2023 07:06:45 10/01/2023 09:06:20 Follow-up orthopedic assessment 187964396 Z47.1 History of left total knee replacement 9563903979 390570 Z96.250 [id number] Larry Pyser, PT [facility] [address] [place] [address] 10/04/2023 06:49:35 10/04/2023 08:09:32 Follow-up orthopedic assessment 139480716 Z47.1 History of left total knee replacement 1468417959 305963 Z96.290 [id number] Kaushik Carmona, PT [facility] [address] [place] [address] 10/08/2023 08:19:37 10/08/2023 09:03:38 Follow-up orthopedic assessment 298236110 Z47.1 History of left total knee replacement [id number] Z96.450 [id number] Larry Pyser, PT [facility] [address] [place] [address] 10/10/2023 08:11:53 10/10/2023 10:11:52 Follow-up orthopedic assessment [id number] Z47.1 History of left total knee replacement [id number] Z96.391 [id number] Larry Pyser, PT [facility] [address] [place] [address] 10/15/2023 07:58:06 10/15/2023 08:38:17 Follow-up orthopedic assessment [id number] Z47.1 History of left total knee replacement [id number] Z96.322 [id number] Larry Pyser, PT [facility] [address] [place] [address] 10/17/2023 07:26:19 10/17/2023 09:03:48 Follow-up orthopedic assessment [id number] Z47.1 History of left total knee replacement [id number] Z96.524 [id number] MD Vasiliy Schultz [facility] [address] [place] [address] 10/17/2023 09:26:01 11/05/2023 09:03:04 History of left total knee replacement [id number] Z96.984 [id number] Larry Pyser, PT [facility] [address] [place] [address] 10/22/2023 07:12:34 10/22/2023 08:05:45 Follow-up orthopedic assessment [id number] Z47.1 History of left total knee replacement [id number] 802340 Z96.895 [id number] Larry Pyser, PT [facility] [address] [place] [address] 10/24/2023 07:14:18 10/24/2023 08:46:21 Follow-up orthopedic assessment [id number] Z47.1 History of left total knee replacement [id number] 841746 Z96.669 [id number] Larry Pyser, PT [facility] [address] [place] [address] 11/05/2023 06:48:26 11/05/2023 08:48:36 Follow-up orthopedic assessment [id number] Z47.1 History of left total knee replacement [id number] 695336 Z96.594 [id number] Larry Pyser, PT [facility] [address] [place] [address] 11/07/2023 06:52:36 11/07/2023 08:00:12 Follow-up orthopedic assessment [id number] Z47.1 History of left total knee replacement [id number] 804335 Z96.968 [id number] Kaushik Kristine, PT [facility] [address] [place] [address] 11/12/2023 06:45:21 11/12/2023 08:54:01 Follow-up orthopedic assessment [id number] Z47.1 History of left total knee replacement [id number] Z96.597 [id number] Larry Pyser, PT [facility] [address] [place] [address] 11/14/2023 06:50:00 11/14/2023 08:46:45 Follow-up orthopedic assessment [id number] Z47.1 History of left total knee replacement [id number] [id number] Z96.037 [id number] Larry Pyser, PT [facility] [address] [place] [address] 11/19/2023 06:45:11 11/19/2023 16:34:06 Follow-up orthopedic assessment [id number] Z47.1 History of left total knee replacement [id number] Z96.096 [id number] Larry Pyser, PT [facility] [address] [place] [address] 11/26/2023 06:47:39 11/26/2023 07:41:27 Follow-up orthopedic assessment [id number] Z47.1 History of left total knee replacement [id number] Z96.905 [id number] Larry Pyser, PT [facility] [address] [place] [address] 11/28/2023 06:54:13 11/28/2023 08:17:21 Follow-up orthopedic assessment [id number] Z47.1 History of left total knee replacement [id number] Z96.744 [id number] Larry Pyser, PT [facility] [address] [place] [address] 12/05/2023 06:49:12 12/05/2023 08:13:15 Follow-up orthopedic assessment [id number] Z47.1 History of left total knee replacement [id number] Z96.135 [id number] MD Apolinar Schultz [address] [place] [address] 12/26/2023 13:20:54 01/17/2024 09:43:04 History of left total knee replacement [id number] [id number] Z96.597 [id number] REECE Menezes [address] [place] [address] 02/24/2024 10:33:16 03/30/2024 13:29:55 History of left total knee replacement [id number] 104761 Z96.518 [id number] REECE Harrington [address] [place] [address] 04/09/2024 08:07:38 04/09/2024 09:12:53 Pain of knee region [id number] M25.562 Health Concerns Section Related Observation LastModified by Organization Detai ls LastModified Time None Recorded Concern Status LastModified by Organization Details LastModified Time None Recorded Advance Directives Directive None Recorded Payers Encounter Date Sequence Insurance Name Policy Number Policy [place] Covered Member ID [place] Member ID Guarantor Name 11/28/2023 1 [place] [facility] [id number] Andres Chavira [id number] Andres Chavira 12/05/2023 1 [place] [facility] [id number] Andres Chavira [id number] Andres Chavira 12/26/2023 1 [place] [facility] [id number] nAdres Chavira [id number] Andres Chavira 02/24/2024 1 [place] [facility] [id number] Andres Chavira [id number] Andres Chavira 04/09/2024 1 [place] [facility] [id number] Andres Chavira [id number] Andres Chavira Notes Date Note Type Note Provider Name and Address Organization Details Recorded Time 11/28/2023 text/html Patient presents today reporting {{0 1 2 3 4 5 6 7* 8 9 10 }}/10 pain. Pt states difficulty over the weekend walking >15'- discomfort from left hip down into quad. Brenda Ansari, STOCK SAW OPERATOR [address], [place], [address], [facility] 11/28/2023 07:57:55 12/05/2023 text/html Patient presents today reporting {{0 1 2 3* 4 5 6 7 8 9 10 }}/10 pain. Brenda Ansari, STOCK SAW OPERATOR [address], [place], [address], [facility] 12/05/2023 15:45:10 02/24/2024 text/html I am seeing the patient today under the supervision of Dr. Chavez who was available but who did not see the patient. HPI:Patient is a 53-year-old male with a history of a left total knee replacement by Dr. Birch approximately 8 months ago. Patient continues to experience pain in his left knee as well as subjective feelings of instability. States that he has pain pretty much throughout the entire day especially with prolonged standing and walking. Does have very minimal time. Throughout the day where he feels that his knee feels pretty good but other than that it has been constant pain. Has been icing multiple times per day as well as utilizing Advil. Does not feel like he has had a lot of swelling in his knee. Has been having a lot of difficulty as well as with going up stairs and getting up from a seated position. Has tried a knee sleeve but this did not seem to work for him. Patient is frustrated with his progress so far. Past family, medical, social history and review of systems has been reviewed, updated and is located in the patient? s chart. Examination: Well-appearing 53-year-old male in no acute distress. He is alert and oriented x 3. Ambulates with an antalgic gait. Left knee reveals a well-healed surgical incision. No erythema, warmth, ecchymosis, swelling. There is no tenderness to palpation over the medial or lateral joint lines anterior aspect of the knee. Range of motion from 0-125 degrees. The knee is stable to valgus and varus stress testing both at 0 and 30 degrees. Post is intact. Knee strength 5/5 against resistance with flexion and extension. Calf is soft and nontender. 3 views of the left knee obtained and independently reviewed in the office today reveal left total knee arthroplasty in good alignment. No evidence of any osteolysis or loosening. Patella is tracking centrally. No fracture. Impression:Continue d left total knee replacement pain, subjective instability Plan:Patient's physical examination as well as radiographic findings today are essentially benign. Discussed with the patient that we will place him into a hinged knee brace for support and stability to the knee and he will wear this full-time with activity. He does not need to wear at rest or when he is sleeping. Patient also provided with prescription for diclofenac 75 mg which she will take twice a day with food. Advised him not to take any other anti-inflammatory medications while he is taking this. Patient will continue to monitor symptoms over the next 4-6 weeks. We will see the patient back in the office for recheck. At this time all patient questions and concerns were answered today. The patient has weakness and instability of their extremity which requires stabalization for this semi-rigid/rigid orthosis to improve their funciton. Verbal and written instructions for the use and application of this item were given. Patient was instructed that should the brace result in increased pain, decreased sensation, increased swelling or an overall worsening of their medical condition, to please contact our office immediately. Amadou Iglesias PA-C [address] [facility] [address], [place], [address], [facility] 02/24/2024 12:57:01
--- OUTSIDE RECORDS SUMMARY | 2024-04-21 12:12 | XMS_ITS ---
Author Organization Michael Arriola MD Address [address] [place], [place] [id number] Care Team Providers Care Demolition Worker Name Role Phone Michael Arriola Primary Care Provider [phone] RESULTS Component Value Reference Range Notes Complete Blood Count Auto Di ff (Not yet reviewed by provider) Interpretation: Performing Lab:[facility], [address] [place] [phone] Notes/Report: White Blood Count 6.1 4.8-10.8 X10*3/uL Red Blood Count 4.89 4.60-5.80 X10*6/uL Hemoglobin 14.2 14.0-18.0 g/dl Hematocrit 42.1 42.0-52.0 % Mean Corpuscular Volume 86.1 80.0-98.0 fL Mean Corpuscular Hemoglobin 29.0 27.0-33.0 pg Mean Corpuscular HGB Conc 33.7 31.0-36.0 g/dl Red Cell Distribution Width 13.5 11.0-16.0 % Platelet Count 209 160-400 X10*3/uL Mean Platelet Volume 11.0 9.4-12.4 fL Neutrophils Percent Auto 50.8 45-73 % Imm Gran Pct Auto 0.3 0.0-0.4 % Lymphocytes Percent Auto 31.4 20-40 % Monocytes Percent Auto 7.1 2-11 % Eosinophils Percent Auto 9.7 0-4 % Basophils Percent Auto 0.7 0-2 % NRBC Pct Auto 0.0 0.0-0.2 /100WBC Neutrophils Absolute Auto 3.1 2.0-8.3 x10*3/u L Imm Gran Abs Auto 0.02 0.00-0.03 X10*3/uL Lymphocytes Absolute Auto 1.9 1.2-4.9 X10*3/u L Monocytes Absolute Auto 0.4 0.1-1.2 X10*3/uL Eosinophils Absolute Auto 0.6 0.0-0.4 X10*3/u L Basophils Absolute Auto 0.0 0.0-0.2 X10*3/uL NRBC Abs Auto 0.000 0.0-0.012 X10*3/uL Comprehensive [place]. Panel Fa (Not yet reviewed by provider) Interpretation: Performing Lab:[facility], [address] [place] [phone] Notes/Report: Sodium 138 135-145 mmol/L Potassium 3.7 3.3-5.1 mmol/L Chloride 110 96-108 mmol/L Carbon Dioxide 21 22-29 mmol/L Anion Gap 11 12-20 Blood Urea Nitrogen 10 9-16 mg/dL Creatinine 1.00 0.5-1.4 mg/dL Estimated Glomerular Filt Rate > 60 Chronic Kidney Disease: Estimated GFR < 60 mL/min/1.73m2 Severe Kidney Disease: Estimated GFR < 15 mL/min/1.73m2 Glucose Fasting 158 60-99 mg/dL A fasting glucose of 126 mg/dl or greater on more than one occasion is considered diagnostic of diabetes. Calcium 8.8 8.4-10.2 mg/dL Bilirubin Total 0.7 0.0-1.0 mg/dL Aspartate Amino Transferase 57 5-37 U/L Alanine Aminotransferase 46 0-40 U/L Total Protein 7.0 6.5-8.0 g/dL Albumin Level 4.0 3.5-5.0 g/dL Alkaline Phosphatase 76 39-117 U/L Lipid Panel (Not yet review ed by provider) Interpretation: Performing Lab:[address] [phone] Notes/Report: Triglycerides 117 <150 mg/dL Desirable Triglyceride: less than 150 mg/dL Borderline High Triglyceride 150-199 mg/dL High Triglyceride: 200-499 mg/dL Very High Triglyceride: greater than or equal to 5OO mg/dL Cholesterol 136 <200 mg/dL Desirable Cholesterol: less than 200 mg/dL Borderline High Cholesterol: 200-239 mg/dL High Cholesterol: greater than 239 mg/dL LDL Cholesterol Calculated 84 <100 mg/dL Desirable LDL: less than 100 mg/dL Near Optimal/Above Optimal LDL: 110-129 mg/dL Borderline High LDL: 130-159 mg/dL High LDL: 160-189 mg/dL Very High LDL: greater than or equal to 190 mg/dL HDL Cholesterol 29 >40 mg/dL Desirable HDL: greater than 40 mg/dL Note: This HDL assay may give artificially low results in patients with liver disease. PSA,Total (Free>4and<10) (No t yet reviewed by provider) Interpretation: Performing Lab:[facility], [address] [place] [phone] Notes/Report: PSA,Total (Free>4and<10) 0.15 0.00-4.00 ng/mL A Free PSA was not performed: The percentage of Free PSA can be used to enhance the differentiation of prostate cancer from benign prostatic disease in subjects whose PSA levels are between 4.0 and 10.0 ng/mL. For subjects whose PSA levels are below 4.0 or above 10.0 ng/mL, the risk of prostate cancer is determined on the basis of the PSA alone. Therefore the % Free PSA is recommended only for those subjects whose PSA levels are between 4.0 and 10.0 ng/mL. PSA methodology: Siddiqi Alinity i Chemiluminescent Microparticle Immunoassay (CMIA) Hemoglobin A1c (Not yet revi ewed by provider) Interpretation: Performing Lab:[facility], [address] [place] [phone] Notes/Report: Hemoglobin A1c % 7.5 <6.0 % Hemoglobin A1C Reference Range Adults: 4.8 - 6.0 % Non diabetic: < 6.0 % Goal: < 7.0 % Additional Action Suggested: > 8.0 % Note: Hemoglobin A1c results are invalid for patients with abnormal amounts of HbF. Blood transfusions may impact the HbA1c concentration in the patient sample. Estimated Average Glucose 169 eAG = Estimated average glucose which is %A1C expressed as average glucose, using the formula of the [id number] Average Glucose study (ADAG), Diabetes Care, Vol.31,#8, 2007 REASON FOR VISIT FASTING LABWORK Encounters Encounter Location Date Provider Diagnosis Michael Arriola MD [address] [place] [address] [address] [place], [place] [phone] 04/21/2024 Michael Arriola Blood tests for routine general physical examination Z00.00 and Type 2 diabetes mellitus without complications E11.9 ASSESSMENTS Encounter Date Diagnosis Assessment Notes Treatment Notes Treatment Clinical Notes 04/21/2024 Blood tests for routine general physical examination (ICD-10 - Z00.00) 04/21/2024 Type 2 diabetes mellitus without complications (ICD-10 - E11.9) PLAN OF TREATMENT Pending Test Test Name Order Date Complete Blood Count Auto Diff 5 Comprehensive [place]. Panel Fast 5 Lipid Panel 04/21/2024 PSA,Total (Free>4and<10) 04/21/2024 Microalbumin, Random 04/21/2024 Hemoglobin A1c 04/21/2024 UA ClnCatch+Micro w/rflx Cult 04/21/2024 Next Appt Details Provider Name:Michael jain, 04/27/2024 02:30:00 PM, [address], [address], [place], [place], [phone],
--- OUTSIDE RECORDS SUMMARY | 2024-04-21 12:13 | XMS_ITS ---
Author Organization Michael Arriola MD Address [address] [facility] [address] [place] [phone] Care Team Providers Care Qualifications Examiner Name Role Phone Michael Arriola Primary Care Provider MEDICATIONS Medication SIG (Take, Route, Frequency, Duration) Notes Start Date End Date Status Basaglar KwikPen 100 UNIT/mL, 3 mL pen as directed Subcutaneous 60 units daily for 90 days 11/14/2023 Active Encounters Encounter Location Date Provider Diagnosis Michael Arriola MD [address] [place] [address] [address] [place], [place] [phone] 11/14/2023 Michael Arriola PLAN OF TREATMENT Medication Medication Name Sig Start Date Stop Date Notes Basaglar KwikPen 100 UNIT/mL, 3 mL pen as directed Subcutaneous 60 units daily for 90 days 11/14/2023 Next Appt Details Provider Name:Michael jain, 04/27/2024 02:30:00 PM, [address] [place] [address], Suite [facility], [place], [place], [phone],
--- OUTSIDE RECORDS SUMMARY | 2024-04-21 12:13 | XMS_ITS ---
Author Organization Michael Arriola MD Address [address] [place] [phone] Care Team Providers Care Solder Leveler [employer] Boards Name Role Phone Michael Arriola Primary Care Provider REASON FOR VISIT New Refill Request MEDICATIONS Medication SIG (Take, Route, Frequency, Duration) Notes Start Date End Date Status Lantus SoloStar 100 UNIT/ML as directed Subcutaneous 60 units daily for 90 days 05/07/2023 Activ e BD Pen Needle Micro U/F 32G X 6 MM as directed 3 times daily for 90 days 11/20/2022 Active Pantoprazole Sodium 40 MG 1 tablet Orall y Once a day for 30 days Active Encounters Encounter Location Date Provider Diagnosis Michael Arriola MD [address] [place] [address] [place] [phone] 03/11/2024 Michael Arriola Type 2 diabetes mellitus without complications E11.9 ASSESSMENTS Encounter Date Diagnosis Assessment Notes Treatment Notes Treatment Clinical Notes 03/11/2024 Type 2 diabetes mellitus without complications (ICD-10 - E11.9) PLAN OF TREATMENT Medication Medication Name Sig Start Date Stop Date Notes Lantus SoloStar 100 UNIT/ML as directed Subcutaneous 60 units daily for 90 days 05/07/2023 BD Pen Needle Micro U/F 32G X 6 MM as directed 3 times daily for 90 days 11/20/2022 Pantoprazole Sodium 40 MG 1 tablet Orall y Once a day for 30 days Next Appt Details Provider Name:Michael jain, 04/27/2024 02:30:00 PM, [address] [facility], [address] [facility], [place], [place], [phone],
--- OUTSIDE RECORDS SUMMARY | 2024-04-21 12:13 | XMS_ITS | Patient Health Record ---
Author Organization Michael Arriola MD Address [address] [place], [place] [id number] Care Team Providers Care User Support Analyst Supervisor Name Role Phone Michael Arriola Primary Care Provider ALLERGIES No Known Allergies RESULTS Component Value Reference Range Notes Hemoglobin A1c Reviewed date:08/05/2023 10:53:35 AM Interpretation: Performing Lab: Notes/Report: Value Hemoglobin A1c 7.3 Occult Blood, Stool, Guaiac Reviewed date:04/25/2023 02:51:11 PM Interpretation:Negative Performing Lab: Notes/Report: Negative Occult Blood, Stool, Guaiac Glucose, finger stick Reviewed date:08/05/2023 10:53:20 AM Interpretation: Performing Lab: Notes/Report: Value 132 Complete Blood Count Auto Di ff Reviewed date:08/06/2023 11:07:14 AM Interpretation: Performing Lab:[facility], [address] [place] [phone] Notes/Report: White Blood Count 10.0 4.8-10.8 X10*3/uL Red Blood Count 3.89 4.60-5.80 X10*6/uL Hemoglobin 10.7 14.0-18.0 g/dl Hematocrit 32.3 42.0-52.0 % Mean Corpuscular Volume 83.0 80.0-98.0 fL Mean Corpuscular Hemoglobin 27.5 27.0-33.0 pg Mean Corpuscular HGB Conc 33.1 31.0-36.0 g/dl Red Cell Distribution Width 14.5 11.0-16.0 % Platelet Count 312 160-400 X10*3/uL Mean Platelet Volume 10.3 9.4-12.4 fL Neutrophils Percent Auto 60.4 45-73 % Imm Gran Pct Auto 0.4 0.0-0.4 % Lymphocytes Percent Auto 21.4 20-40 % Monocytes Percent Auto 9.4 2-11 % Eosinophils Percent Auto 7.7 0-4 % Basophils Percent Auto 0.7 0-2 % NRBC Pct Auto 0.0 0.0-0.2 /100WBC Neutrophils Absolute Auto 6.1 2.0-8.3 x10*3/u L Imm Gran Abs Auto 0.04 0.00-0.03 X10*3/uL Lymphocytes Absolute Auto 2.2 1.2-4.9 X10*3/u L Monocytes Absolute Auto 0.9 0.1-1.2 X10*3/uL Eosinophils Absolute Auto 0.8 0.0-0.4 X10*3/u L Basophils Absolute Auto 0.1 0.0-0.2 X10*3/uL NRBC Abs Auto 0.000 0.0-0.012 X10*3/uL IRON PROFILE Reviewed date:08/06/2023 11:06:30 AM Interpretation: Performing Lab:[address] [phone] Notes/Report: Iron 29 45-160 mcg/dL Total Iron Binding Capacity 529 228-428 mcg/dL Percent Iron Saturation 5 15-50 % Unsaturated Iron Binding > 500 Complete Blood Count Auto Di ff Reviewed date:08/22/2023 01:46:37 PM Interpretation:MASOOD 08/21 Performing Lab:[address] [phone] Notes/Report: White Blood Count 19.2 4.8-10.8 X10*3/uL Red Blood Count 4.11 4.60-5.80 X10*6/uL Hemoglobin 11.0 14.0-18.0 g/dl Hematocrit 34.8 42.0-52.0 % Mean Corpuscular Volume 84.7 80.0-98.0 fL Mean Corpuscular Hemoglobin 26.8 27.0-33.0 pg Mean Corpuscular HGB Conc 31.6 31.0-36.0 g/dl Red Cell Distribution Width 14.6 11.0-16.0 % Platelet Count 325 160-400 X10*3/uL Mean Platelet Volume 10.6 9.4-12.4 fL Neutrophils Percent Auto 76.6 45-73 % Imm Gran Pct Auto 0.5 0.0-0.4 % Lymphocytes Percent Auto 15.2 20-40 % Monocytes Percent Auto 6.5 2-11 % Eosinophils Percent Auto 0.7 0-4 % Basophils Percent Auto 0.5 0-2 % NRBC Pct Auto 0.0 0.0-0.2 /100WBC Neutrophils Absolute Auto 14.7 2.0-8.3 x10*3/u L Imm Gran Abs Auto 0.09 0.00-0.03 X10*3/uL Lymphocytes Absolute Auto 2.9 1.2-4.9 X10*3/u L Monocytes Absolute Auto 1.3 0.1-1.2 X10*3/uL Eosinophils Absolute Auto 0.1 0.0-0.4 X10*3/u L Basophils Absolute Auto 0.1 0.0-0.2 X10*3/uL NRBC Abs Auto 0.000 0.0-0.012 X10*3/uL Complete Blood Count Auto Di ff Reviewed date:08/23/2023 08:29:45 AM Interpretation: Performing Lab:[facility], [address] [place] [phone] Notes/Report: White Blood Count 9.8 4.8-10.8 X10*3/uL Red Blood Count 4.03 4.60-5.80 X10*6/uL Hemoglobin 10.7 14.0-18.0 g/dl Hematocrit 33.4 42.0-52.0 % Mean Corpuscular Volume 82.9 80.0-98.0 fL Mean Corpuscular Hemoglobin 26.6 27.0-33.0 pg Mean Corpuscular HGB Conc 32.0 31.0-36.0 g/dl Red Cell Distribution Width 14.3 11.0-16.0 % Platelet Count 384 160-400 X10*3/uL Mean Platelet Volume 10.7 9.4-12.4 fL Neutrophils Percent Auto 61.2 45-73 % Imm Gran Pct Auto 0.3 0.0-0.4 % Lymphocytes Percent Auto 25.4 20-40 % Monocytes Percent Auto 5.9 2-11 % Eosinophils Percent Auto 6.6 0-4 % Basophils Percent Auto 0.6 0-2 % NRBC Pct Auto 0.0 0.0-0.2 /100WBC Neutrophils Absolute Auto 6.0 2.0-8.3 x10*3/u L Imm Gran Abs Auto 0.03 0.00-0.03 X10*3/uL Lymphocytes Absolute Auto 2.5 1.2-4.9 X10*3/u L Monocytes Absolute Auto 0.6 0.1-1.2 X10*3/uL Eosinophils Absolute Auto 0.7 0.0-0.4 X10*3/u L Basophils Absolute Auto 0.1 0.0-0.2 X10*3/uL NRBC Abs Auto 0.000 0.0-0.012 X10*3/uL Urinalysis and Microscopic Reviewed date:08/23/2023 12:20:31 PM Interpretation: Performing Lab:[address] [phone] Notes/Report: Color Urine Yellow Appearance Urine Cloudy PH 6.0 5.0-9.0 Glucose Urine UA Negative Negative mg/dL Urine Blood Negative Negative Specific [facility] - Urine 1.015 1.005-1.025 Urine Protein 30 (1+) Neg-Trace mg/dL Urine Ketones Negative Negative mg/dL Nitrite Urine Negative Negative Leukocyte Esterase Urine Moderate (2+) Negative RBC Urine 0-2 0-2 /HPF WBC Urine >50 0-5 /HPF Squamous Epithelial Cell Urine 0-2 0-2 /HPF Bacteria Urine 4+ None Seen Hyaline Casts Urine 0-2 0-2 /LPF Urine Culture Reviewed date:08/26/2023 01:45:37 PM Interpretation: Performing Lab:[address] [phone] Notes/Report: O:ESCCOL Escherichia coli Urine Culture Quant Urine Culture > 100,000 cfu/mL Ampicillin 4 Ceftriaxone <=0.25 Gentamicin <=1 Levofloxacin <=0.12 Nitrofurantoin <=16 Trimethoprim/Sulfamethoxaz ole <=20 Hold Gold Reviewed date:10/14/2023 02:08:13 PM Interpretation: Performing Lab:[address] [place] [address] Notes/Report: Hold Gold See Note Specimen held untested for 24 hours; Call to request Chemistry testing. Liver Panel Reviewed date:10/14/2023 05:59:36 PM Interpretation: Performing Lab:[facility], [address] [place] [phone] Notes/Report: Bilirubin Total 0.4 0.0-1.0 mg/dL Bilirubin Direct 0.1 0.0-0.5 mg/dL Aspartate Amino Transferase 33 5-37 U/L Alanine Aminotransferase 27 0-40 U/L Total Protein 7.0 6.5-8.0 g/dL Albumin Level 4.1 3.5-5.0 g/dL Alkaline Phosphatase 72 39-117 U/L Glucose Fasting Reviewed date:10/14/2023 05:59:16 PM Interpretation: Performing Lab:[facility], [address] [place] [phone] Notes/Report: Glucose Fasting 139 60-99 mg/dL A fasting glucose of 126 mg/dl or greater on more than one occasion is considered diagnostic of diabetes. IRON PROFILE Reviewed date:10/14/2023 05:59:27 PM Interpretation: Performing Lab:[facility], [address] [place] [phone] Notes/Report: Iron 97 45-160 mcg/dL Total Iron Binding Capacity 256 228-428 mcg/dL Percent Iron Saturation 38 15-50 % Unsaturated Iron Binding 159 Lipid Panel with Reflex Reviewed date:10/14/2023 05:58:52 PM Interpretation: Performing Lab:[facility], [address] [place] [phone] Notes/Report: Triglycerides 161 <150 mg/dL Desirable Triglyceride: less than 150 mg/dL Borderline High Triglyceride 150-199 mg/dL High Triglyceride: 200-499 mg/dL Very High Triglyceride: greater than or equal to 5OO mg/dL Cholesterol 97 <200 mg/dL Desirable Cholesterol: less than 200 mg/dL Borderline High Cholesterol: 200-239 mg/dL High Cholesterol: greater than 239 mg/dL LDL Cholesterol Calculated 28 <100 mg/dL Desirable LDL: less than 100 mg/dL Near Optimal/Above Optimal LDL: 110-129 mg/dL Borderline High LDL: 130-159 mg/dL High LDL: 160-189 mg/dL Very High LDL: greater than or equal to 190 mg/dL HDL Cholesterol 37 >40 mg/dL Desirable HDL: greater than 40 mg/dL Note: This HDL assay may give artificially low results in patients with liver disease. Hemoglobin A1c Reviewed date:10/14/2023 05:59:03 PM Interpretation: Performing Lab:[facility], [address] [place] [phone] Notes/Report: Hemoglobin A1c % 5.8 <6.0 % Hemoglobin A1C Reference Range Adults: 4.8 - 6.0 % Non diabetic: < 6.0 % Goal: < 7.0 % Additional Action Suggested: > 8.0 % Note: Hemoglobin A1c results are invalid for patients with abnormal amounts of HbF. Blood transfusions may impact the HbA1c concentration in the patient sample. Estimated Average Glucose 120 eAG = Estimated average glucose which is %A1C expressed as average glucose, using the formula of the R5B-Nagaegq Average Glucose study (ADAG), Diabetes Care, Vol.31,#8, Oct. 2007 UA CC w/rflx Micro + Cult (N ot yet reviewed by provider) Interpretation: Performing Lab:[facility], [address] [place] [phone] Notes/Report: [id number] 0700 Urine, Clean Catch Color Urine Yellow Appearance Urine Clear PH 6.5 5.0-9.0 Glucose Urine UA Negative Negative mg/dL Urine Blood Negative Negative Specific [facility] - Urine 1.010 1.005-1.025 Urine Protein Negative Neg-Trace mg/dL Urine Ketones Negative Negative mg/dL Nitrite Urine Negative Negative Leukocyte Esterase Urine Negative Negative Complete Blood Count Auto Di ff (Not yet reviewed by provider) Interpretation: Performing Lab:[facility], [address] [place] [phone] Notes/Report: White Blood Count 6.1 4.8-10.8 X10*3/uL [...] NRBC Abs Auto 0.000 0.0-0.012 X10*3/uL Comprehensive [place]. Panel Fa st (Not yet reviewed by provider) Interpretation: Performing Lab:[facility], [address] [place] [phone] Notes/Report: Sodium 138 135-145 mmol/L Potassium 3.7 [...] 76 39-117 U/L Lipid Panel (Not yet reviewe d by provider) Interpretation: Performing Lab:[address] [phone] Notes/Report: Triglycerides 117 <150 mg/dL Desirable Triglyceride: [...] t yet reviewed by provider) Interpretation: Performing Lab:[address] [phone] Notes/Report: PSA,Total (Free>4and<10) 0.15 0.00-4.00 ng/mL A [...] yet revi ewed by provider) Interpretation: Performing Lab:[address] [phone] Notes/Report: Hemoglobin A1c % 7.5 <6.0 % [...] average glucose, using the formula of the Y2D-Dbilzxl Average Glucose study (ADAG), Diabetes Care, Vol.31,#8, 2007 REASON FOR REFERRAL Reason gastroesophageal ref lux needs endoscopy done ins referral needed Diagnosis 1 Gastroesophageal ref lux disease with esophagitis without hemorrhage (K21.00) Referral Organization Michael Arriola MD Referring Provider First Name Michael Referring Provider Last Name Zeinab Referring Provider Speciality Internal M edicine Referred Provider KULWANT CABRERA Referred Provider Specialty Gastroentero logy General Notes Kathleen Peoples 01:52:13 PM EDT > info faxed phone [phone], Kathleen Peoples 10/18/2023 03:22:18 PM EDT > patient is aware of appt , Kathleen Peoples 12/27/2023 09:55:53 AM EDT > received a letter from Dr. Cabrera office patient no showed appt on 12-17-2023. Called patient he will be calling to resched appt. Referral Priority Routine Referral Appointment Date 12/17/2023 MEDICATIONS Medication SIG (Take, Route, Frequency, Duration) Notes Start Date End Date Status Atorvastatin Calcium 80 MG TAKE 1 TABLET BY MOUTH EVERY DAY Oral Once a day for 90 days 12/08/2021 Unknown Lantus SoloStar 100 UNIT/ML as directed Subcutaneous 60 units daily for 90 days 05/07/2023 Active FreeStyle Ray 2 Sensor - as directed every 14 janessa for 60 days 02/27/2022 Unknown BD Pen Needle Micro U/F 32G X 6 MM as directed 3 times daily for 90 days 11/20/2022 Active oxyCODONE HCl 5 MG 1 tablet as needed Orally every 6 hrs Not-Taking Pantoprazole Sodium 40 MG 1 tablet Orally Once a day for 30 days Active Basaglar KwikPen 100 UNIT/ML as directed Subcutaneous 60 units twice a siva for 90 days Unknown Levemir FlexPen 100 UNIT/ML as directed Subcutaneous 60 units daily for 90 days 11/12/2023 Active NovoLOG 100 UNIT/ML 10 to 20 units Injec tion twice a day Not-Taking Lantus SoloStar 100 UNIT/ML as directed Subcutaneous 60 units twice daily for 90 days 09/27/2023 Unknown Tadalafil 10 MG 1 or 2 tabs Orally O nce a day as needed for 30 day(s) 09/26/2023 Unknown Mounjaro 5 MG/0.5ML as directed Subcutaneous Active Eliquis 5 MG 1 tablet Orally Twic e a day for 30 day(s) 09/26/2023 Unknown Basaglar KwikPen 100 UNIT/mL, 3 mL pen as directed Subcutaneous 60 units daily for 90 days 11/14/2023 Active NovoLOG FlexPen 100 UNIT/ML 10 to 20 units sq twice a day 11/20/2022 Not-Taking IMMUNIZATIONS Vaccine Route Administration Date Status Comme nts SARS-COV-2 Pfizer Unknown 06/04/2020 Administered SARS-COV-2 Pfizer Unknown 06/25/2020 Administered SARS-COV-2 Pfizer Unknown 03/14/2021 Administered Fluarix Quadrivalent IM Intramuscular 04/17/2022 Administe red SARS-COV-2 Moderna 2022 Unknown 04/04/2023 Administered [facility] SOCIAL HISTORY Tobacco Use: Social History Observation Description Date Details (start date - stop date) Current Smoker NA - NA Sex Assigned At : Social History Observation Description Sex Assigned At Unknown Tobacco Use/Smoking Question Answer Notes Patient is a current smoker Alcohol Screen Question Answer Notes Did you have a drink contain ing alcohol in the past year? Yes How often did you have a dri nk containing alcohol in the past year? 4 or more times a week (4 points) How many drinks did you have on a typical day when you were drinking in the past year? 1 or 2 drinks (0 point) How often did you have 6 or more drinks on one occasion in the past year? Never (0 point) Points 4 Interpretation Positive PROBLEMS Problem Type ICD Code Onset Dates Problem Status W/U Status Risk SNOMED Code Notes Problem Type 2 diabetes mellitus without complications (E11.9) Active confirmed 37522217 Problem Lumbar disc disease (M51.9) Active confirmed 800355221 Problem Atrial fibrillation, unspecified type (I48.91) Active confirmed 47454544 Problem Erectile dysfunction due to arterial insufficiency (N52.01) Active confirmed 029286339123406 Problem ADALBERTO (obstructive sleep apnea) (G47.33) Active confirmed 27654775 Problem Gastroesophageal reflux disease with esophagitis without hemorrhage (K21.00) Active confirmed 625118801 Problem Type 2 diabetes, controlled, with neuropathy (E11.40) Active confirmed 20333597 Problem Gastroesophageal reflux disease without esophagitis (K21.9) Active confirmed 527825118 Problem Arthritis of knee (M17.10) Active confirmed 621338481 Problem History of pulmonary embolism (Z86.711) Active confirmed History of pulmonary embolus (409093221) Problem Other elevated white blood cell count (D72.828) Active confirmed 694179419 Problem Gastric reflux (K21.9) Active confirmed 366523069 VITAL SIGNS Blood pressure diastolic 58 mm Hg 11/12/2023 Height 73 in 11/12/2023 Blood pressure systolic 132 mm Hg 11/12/2023 Weight 265 lbs 11/12/2023 BMI 34.96 kg/m2 11/12/2023 Encounters Encounter Location Date Provider Diagnosis Michael Arriola MD [address] [place] [id number] 04/25/2023 Michael Arriola Type 2 diabetes, controlled, with neuropathy E11.40 ; Annual physical exam Z00.00 ; Arthritis of knee M17.10 ; Lumbar disc disease M51.9 ; Depression screening Z13.31 and Colon cancer screening Z12.11 Michael Arriola MD [address] [place] [id number] 08/22/2023 Michael Arriola Other elevated white blood cell count D72.828 ; UTI symptoms R39.9 and Stool guaiac positive R19.5 Michael Arriola MD [address] [place] [id number] 08/29/2023 Michael Arriola Gastric reflux K21.9 ; Type 2 diabetes, controlled, with neuropathy E11.40 and Other elevated white blood cell count D72.828 Michael Arriola MD [address] [place] [id number] 10/14/2023 Michael Arriola Type 2 diabetes mellitus without complications E11.9 and Anemia, unspecified type D64.9 Michael Arriola MD [address] [place] [id number] 04/21/2024 Michael Arriola Blood tests for rout ine general physical examination Z00.00 and Type 2 diabetes mellitus without complications E11.9 Michael Arriola MD [address] [place] [id number] 08/19/2023 Michael Arriola Acute anemia D64.9 Michael Arriola MD [address] [place] [id number] 11/12/2023 Michael Arriola Type 2 diabetes mellitus without complications E11.9 ; Arthritis of knee M17.10 ; Gastroesophageal reflux disease with esophagitis without hemorrhage K21.00 and History of pulmonary embolism Z86.711 Michael Arriola MD [address] [place] [id number] 09/02/2023 Michael Arriola MD [address] [place] [id number] 09/26/2023 Michael Arriola Type 2 diabetes, controlled, with neuropathy E11.40 ; Erectile dysfunction due to arterial insufficiency N52.01 ; Gastroesophageal reflux disease with esophagitis without hemorrhage K21.00 and History of pulmonary embolism Z86.711 Michael Arriola MD [address] [place] [id number] 08/05/2023 Michael Arriola Type 2 diabetes mellitus without complications E11.9 ; Acute anemia D64.9 ; Gastroesophageal reflux disease with esophagitis without hemorrhage K21.00 and History of pulmonary embolism Z86.711 Michael Arriola MD [address] [place] [address] [id number] 04/29/2023 Michael Arriola MD [address] [place] [address] [id number] 05/07/2023 Michael Arriola MD [address] [place] [address] [id number] 05/10/2023 Michael Arriola MD [address] [place] [address] [id number] 07/23/2023 Michael Arriola MD [address] [place] [address] [id number] 08/23/2023 Michael Arriola MD [address] [place] [address] [id number] 08/27/2023 Michael Arriola MD [address] [place] [address] [id number] 08/27/2023 Michael Arriola MD [address] [place] [address] [id number] 08/27/2023 Michael Arriola MD [address] [place] [address] [id number] 11/14/2023 Michael Arriola MD [address] [place] [address] [id number] 05/15/2023 Michael Arriola MD [address] [place] [address] [id number] 05/28/2023 Michael Arriola MD [address] [place] [address] [id number] 07/01/2023 Michael Arriola MD [address] [place] [id number] 08/30/2023 Michael Arriola MD [address] [place] [address] [id number] 09/02/2023 Michael Arriola MD [address] [place] [address] [id number] 10/04/2023 Michael Arriola MD [address] [place] [address] [id number] 11/12/2023 Michael Arriola Erectile dysfunction due to arterial insufficiency N52.01 Michael Arriola MD [address] [place] [address] [id number] 03/11/2024 Michael Arriola Type 2 diabetes mellitus without complications E11.9 ASSESSMENTS Encounter Date Diagnosis Assessment Notes Treatment Notes Treatment Clinical Notes 04/25/2023 Annual physical exam (ICD-10 - Z00.00) labs reviewed and discussed with patient 04/25/2023 Type 2 diabetes, controlled, with neuropathy (ICD-10 - E11.40) has lowered his a1c./ is going to endocrine at [facility], will continue current regiment 08/22/2023 Other elevated white blood cell count (ICD-10 - D72.828) pending additional labs 08/22/2023 UTI symptoms (ICD-10 - R39.9) 08/29/2023 Type 2 diabetes, controlled, with neuropathy (ICD-10 - E11.40) has been doing well 08/29/2023 Gastric reflux (ICD- 10 - K21.9) wondering whether it could be diabetic gastroparesis/ is going to see dr cabrera for evaluation 10/14/2023 Type 2 diabetes mellitus without complications (ICD-10 - E11.9) 10/14/2023 Anemia, unspecified type (ICD-10 - D64.9) 04/21/2024 Type 2 diabetes mellitus without complications (ICD-10 - E11.9) 04/21/2024 Blood tests for routine general physical examination (ICD-10 - Z00.00) 08/19/2023 Acute anemia (ICD-10 - D64.9) 11/12/2023 Type 2 diabetes mellitus without complications (ICD-10 - E11.9) stable, will continue current regiment and will continue to monitor Insurance won't pay for lantus now and requires levimir 11/12/2023 Arthritis of knee (ICD-10 - M17.10) still with symptoms/ had a knee replacement 4 months ago and is unhappy that he is still having pains and clicking. have explained that in my experience this seems normal 09/26/2023 Erectile dysfunction due to arterial insufficiency (ICD-10 - N52.01) 09/26/2023 Type 2 diabetes, controlled, with neuropathy (ICD-10 - E11.40) stable, will continue current regiment/ insurance no longer covers basaglar 08/05/2023 Type 2 diabetes mellitus without complications (ICD-10 - E11.9) endocrine is starting on monjoro. but has not started yet 08/05/2023 Acute anemia (ICD-10 - D64.9) 11/12/2023 Erectile dysfunction due to arterial insufficiency (ICD-10 - N52.01) 03/11/2024 Type 2 diabetes mellitus without complications (ICD-10 - E11.9) 04/25/2023 Arthritis of knee (ICD-10 - M17.10) waiting to get knees replaced 08/22/2023 Stool guaiac positiv e (ICD-10 - R19.5) iron can give a false positive/ will recheck next week with holding his iron 08/29/2023 Other elevated white blood cell count (ICD-10 - D72.828) has returned to normal/ was concerned that his knee could have been infected but knee appears normal post op and is not red and not hot and wbc is normal so need to speak to [facility] 11/12/2023 Gastroesophageal reflux disease with esophagitis without hemorrhage (ICD-10 - K21.00) going to see dr irby 09/26/2023 Gastroesophageal reflux disease with esophagitis without hemorrhage (ICD-10 - K21.00) referral to dr cabrera for endoscopy 08/05/2023 Gastroesophageal reflux disease with esophagitis without hemorrhage (ICD-10 - K21.00) have him contact dr cabrera for upper endo/ ELAS WILL CALL HIS DR TO DISCUSS UPPER ENDO 04/25/2023 Lumbar disc disease (ICD-10 - M51.9) stable at present 11/12/2023 History of pulmonary embolism (ICD-10 - Z86.711) is off eliquis for 2 weeks, saw pulmonary and they agreed with stopping it/ need notes from [facility] punco grung / will send request for records. 09/26/2023 History of pulmonary embolism (ICD-10 - Z86.711) 08/05/2023 History of pulmonary embolism (ICD-10 - Z86.711) had 2 ct angio's which were negative but shortness of breath and ddimer with was up. they have elected to treat him as pul emboli for 3 months. had negative doppler of the calf 04/25/2023 Depression screening (ICD-10 - Z13.31) negatve screen 04/25/2023 Colon cancer screeni ng (ICD-10 - Z12.11) guaiac negative PLAN OF TREATMENT Pending Test Test Name Order Date XR GI SERIES 04/23/2022 Complete Blood Count Auto Diff 5 Comprehensive [place]. Panel Fast 5 Lipid Panel 04/21/2024 PSA,Total (Free>4and<10) 04/21/2024 Microalbumin, Random 04/21/2024 Hemoglobin A1c 04/21/2024 UA CC w/rflx Micro + Cult 04/21/2024 UA ClnCatch+Micro w/rflx Cult 04/21/2024 Next Appt Details Provider Name:Michael Bailon Judith laughlinr, 04/27/2024 02:30:00 PM, [address] [place] [address], [address], [place], [place], [id number], Insurance Providers Payer Name Payer Address Payer Phone Subscriber Number Group Number Insured Name Patient Relationship to Insured Coverage Start Date Coverage End Date [employer] [address] [place], [place] [id number] [phone] [id number] ELSA LEUNG Self - patient is the insured MEDICAL (GENERAL) HISTORY Medical History History ICD Code 2021 had lumbar surgery with secondary infection. had to take out titanium and reoperate atrial fibrillation 2004 with ablation colonoscopy 2020.
== END 2024-04-21 07:01 | disposition home or self-care (01) ==
LOC: HO.LNP 07:00
PROVIDERS: Visit Provider Internal Medicine
DX: Z00.00 Encounter for general adult medical examination without abnormal findings (principal); E11.9 Type 2 diabetes mellitus without complications; Z12.5 Encounter for screening for malignant neoplasm of prostate
CPT/HCPCS: 80053; 80061; 81003; 82043; 82570; 83036; 84153; 85025

== ENCOUNTER 2024-05-11 08:36 | Outpatient (REF) | payer BC, SELFPAY ==
--- NOTE | ~2024-05-11 | US_ITS ---
CLINICAL HISTORY: ELEVATED LFTS US abdomen complete with duplex and color Doppler Comparison: None Findings: The visualized pancreas, aorta, and inferior vena cava are unremarkable. Liver normal size and mildly echogenic. Right lobe cm length. No focal hepatic masses. Common duct 4.5 mm diameter. Physiologic distention of the gallbladder. No gallstones or sludge. No gallbladder wall thickening. No pericholecystic fluid. No sonographic Olguin sign. Main portal vein antegrade. Right kidney normal size, 12.8 cm in length. Normal cortical width and echotexture. No solid or cystic renal masses. Nonobstructing caliceal stone midpole measuring 5 x 4 x 3 mm. No hydronephrosis. Left kidney normal, 12.8 cm in length. Normal cortical width and echotexture. No solid or cystic renal masses. Nonobstructing caliceal equivocal stone lower pole measuring 4 x 4 x 4 mm. No hydronephrosis. Spleen measures 16.1 cm. No splenic masses. No ascites. No lymphadenopathy. Impression: 1. Echogenic liver reflecting hepatic steatosis or diffuse hepatocellular disease. No focal hepatic lesions. 2. Mild splenomegaly. 3. Nephrolithiasis on the right. Equivocal nephrolithiasis on the left. No hydronephrosis. This document has been electronically signed by: Suraj Patel MD on 05/11/2024 10:40:01
--- OUTSIDE RECORDS SUMMARY | 2024-05-11 08:51 | XMS_ITS ---
Author Organization Michael Arriola MD Address [address] [place], [place] [phone] Care Team Providers Care Cupola Tapper Helper Name Role Phone Michael Arriola Primary Care Provider Results Component Value Reference Range Notes Complete Blood Count Auto Di ff Reviewed date:04/21/2024 12:48:58 PM Interpretation: Performing Lab:[facility], [address] [place] [phone] Notes/Report: White Blood Count 6.1 4.8-10.8 X10*3/uL [...] NRBC Abs Auto 0.000 0.0-0.012 X10*3/uL Comprehensive [place]. Panel Fa st Reviewed date:04/21/2024 12:49:57 PM Interpretation: Performing Lab:[facility], [address] [place] [phone] Notes/Report: Sodium 138 135-145 mmol/L Potassium 3.7 [...] Alkaline Phosphatase 76 39-117 U/L Lipid Panel Reviewed date:04/21/2024 12:48:41 PM Interpretation: Performing Lab:[address] [phone] Notes/Report: Triglycerides 117 <150 mg/dL Desirable Triglyceride: [...] in patients with liver disease. PSA,Total (Free>4and<10) Reviewed date:04/21/2024 12:50:08 PM Interpretation: Performing Lab:[address] [phone] Notes/Report: PSA,Total (Free>4and<10) 0.15 0.00-4.00 ng/mL A [...] Siddiqi Alinity i Chemiluminescent Microparticle Immunoassay (CMIA) Microalbumin, Random Reviewed date:04/21/2024 12:49:06 PM Interpretation: Performing Lab:[address] [phone] Notes/Report: Creatinine Urine 103.90 Microalbumin Urine 26.0 Microalbum/Creatinine Ratio Ur 25.0 <30 ug/mg cr Albumin/Creatinine Ratio Reference Ranges: Normal: < 30 ug/mg creatinine Microalbuminuria: 30 - 300 ug/mg creatinine Clinical Albuminuria: > 300 ug/mg creatinine Hemoglobin A1c Reviewed date:04/21/2024 12:49:18 PM Interpretation: Performing Lab:[address] [phone] Notes/Report: Hemoglobin A1c % 7.5 <6.0 % [...] average glucose, using the formula of the [id number] Average Glucose study (ADAG), Diabetes Care, Vol.31,#8, 2007 REASON FOR VISIT FASTING LABWORK Encounters Encounter Location Date Provider Diagnosis Michael Arriola MD [address] [place] [address] [place] [id number] 04/21/2024 Michael Arriola Blood tests for routine general physical examination Z00.00 and Type 2 diabetes mellitus without complications E11.9 Assessments Encounter Date Diagnosis (ICD Code) Assessment Notes Treatment Notes Treatment Clinical Notes Section Notes 04/21/2024 Blood tests for routine general physical examination (ICD-10 - Z00.00) 04/21/2024 Type 2 diabetes mellitus without complications (ICD-10 - E11.9) Plan Of Treatment Pending Test Test Name Order Date UA ClnCatch+Micro w/rflx Cult 04/21/2024 Next Appt Details Provider Name:Michael jain, 06/23/2024 07:00:00 AM, [address] [place] [address], [address], [phone], Provider Name:Michael jain, 10/23/2024 07:30:00 AM, [address] [place] [address], [address], [phone], Provider Name:Michael jain, 10/29/2024 07:45:00 AM, [address] [place] [address], [address], [phone], Provider Name:Michael jain, 04/22/2025 07:15:00 AM, [address] [place] [address], [address], [phone], Provider Name:Michael jain, 04/29/2025 02:30:00 PM, [address] [place] [address], [address], [place], [place], [phone], Progress Notes * ELSA LEUNGDOB: 0 (53 yo M)Acc No.[id number]:04/21/2024 Progress Note Patient:?ELSA LEUNG Provider:?Michael Arriola MD :1970???Age:53 Y???Sex:Male Saul e:04/21/2024 Address:[address] [place], [place] [phone] Subjective: * Chief Complaints: * ???1. FASTING LABWORK. * Medical History:? Objective: * Vitals:? Assessment: * Assessment: 1.?Blood tests for routine g eneral physical examination - Z00.00 (Primary)???2.?Type 2 diabetes mellitus without complications - E11.9??? Plan: * Treatment: 2.?Type 2 diabetes mellitus without complications?LAB: UA ClnCatch+Micro w/rflx Cult ?LAB: Complete Blood Count Auto Diff (Collection Date & Time - 04/21/2024 07:00 AM) ?LAB: Comprehensive [place]. Panel Fast (Collection Date & Time - 04/21/2024 07:00 AM) ?LAB: Lipid Panel (Collection Date & Time - 04/21/2024 07:00 AM) ?LAB: PSA,Total (Free>4and<10) (Collection Date & Time - 04/21/2024 07:00 AM) ?LAB: Microalbumin, Random (Collection Date & Time - 04/21/2024 07:00 AM) ?LAB: Hemoglobin A1c (Collection Date & Time - 04/21/2024 07:00 AM) * Procedure Codes:?47009 VENIP UNCT, ROUTINE* * * The named appointment provid er may or may not be the originator of this progress note, and it is not deemed complete until electronically signed by the appointment provider. Sign off status: Pending * Provider:?Michael Arriola MD Date:?0 04/21/2024 Generated for Gina howard/Mallika/Lisa on:?05/11/2024 08:51 AM EST
--- OUTSIDE RECORDS SUMMARY | 2024-05-11 08:51 | XMS_ITS ---
Author Organization Michael Arriola MD Address [address] [place] [phone] Care Team Providers Care Pulley Man Name Role Phone Michael Arriola Primary Care Provider REASON FOR VISIT New Refill Request Medications Medication SIG (Take, Route, Frequency, Duration) Notes [...] Location Date Provider Diagnosis Michael Arriola MD [address] [place] [address] [place] [phone] 03/11/2024 Michael Arriola Type 2 diabetes mellitus without complications E11.9 Assessments Encounter Date Diagnosis (ICD Code) Assessment Notes Treatment Notes Treatment Clinical Notes Section Notes 03/11/2024 Type 2 diabetes mellitus without complications (ICD-10 - E11.9) Plan Of Treatment Medication Medication Name Sig Start Date Stop Date Notes Lantus SoloStar 100 UNIT/ML as directed Subcutaneous 60 units daily for 90 days 05/07/2023 BD Pen Needle Micro U/F 32G X 6 MM as directed 3 times daily for 90 days 11/20/2022 Pantoprazole Sodium 40 MG 1 tablet Orall y Once a day for 30 days Next Appt Details Provider Name:Michael jain, 06/23/2024 07:00:00 AM, [address] [place] [address], [address] [place] [address], [phone], Provider Name:Michael Wong ier, 10/23/2024 07:30:00 AM, [address], [address], [place], [phone], Provider Name:Michael Wong ier, 10/29/2024 07:45:00 AM, [address], [address], [place], [phone], Provider Name:Michael Wong ier, 04/22/2025 07:15:00 AM, [address], [address], [place], [phone], Provider Name:Michael Wong ier, 04/29/2025 02:30:00 PM, [address] [place] [address] Drive, [address], [place], [phone], Progress Notes * THANIACONOR ELSADOB: 0 (53 yo M)Acc No.[id number]:03/11/2024 Patient:?ELSA LEUNG :1970???Age:53 Y???Sex:Male Address:[address] [place] [address], [id number] * Refills? Refill Lantus SoloStar Solution Pen-injector, 100 UNIT/ML, Subcutaneous, as directed, 60 units daily, 90 days, Refills=3 Refill BD Pen Needle Micro U/F Miscellaneous, 32G X 6 MM, 3 times, 300, as directed, daily, 90 days, Refills=3 Continue Pantoprazole Sodium Tablet Delayed Release, 40 MG, Orally, 30 Tablet, 1 tablet, Once a day, 30 days, Refills=12 * true * Date:? Generated for Gina howard/Mallika/eTmalikasmitting on:?05/11/2024 08:51 AM EST
--- OUTSIDE RECORDS SUMMARY | 2024-05-11 08:52 | XMS_ITS ---
Author Organization Michael Arriola MD Address [address] [place] [phone] Care Team Providers Care Histotechnologist Supervisor Name Role Phone Michael Arriola Primary Care Provider Allergies No Known Allergies REASON FOR VISIT ANNUAL EXAM Medications Medication SIG (Take, Route, Frequency, Duration) Notes Start Date End Date Status Lantus SoloStar 100 UNIT/ML as directed Subcutaneous 60 units twice daily for 90 days 09/27/2023 Unknown Eliquis 5 MG 1 tablet Orally Twic e a day for 30 day(s) 09/26/2023 Unknown Basaglar KwikPen 100 UNIT/ML as directed Subcutaneous 60 units twice a saul for 90 days Unknown Tadalafil 10 MG 1 or 2 tabs Orally O nce a day as needed for 30 day(s) 09/26/2023 Unknown Pantoprazole Sodium 40 MG 1 tablet Orally Once a day for 30 days Active FreeStyle Ray 2 Sensor - as directed every 14 janessa for 60 days 02/27/2022 Unknown Atorvastatin Calcium 80 MG TAKE 1 TABLET BY MOUTH EVERY DAY Oral Once a day for 90 days 12/08/2021 Unknown NovoLOG FlexPen 100 UNIT/ML 10 to 20 units sq twice a day 11/20/2022 Not-Taking oxyCODONE HCl 5 MG 1 tablet as needed Orally every 6 hrs Not-Taking NovoLOG 100 UNIT/ML 10 to 20 units Injec tion twice a day Not-Taking Mounjaro 5 MG/0.5ML `10 mg Subcutaneous Active BD Pen Needle Micro U/F 32G X 6 MM as directed 3 times daily for 90 days 11/20/2022 Active Social History Tobacco Use: Social History Observation Description Date Details (start date - stop date) Current Smoker NA - NA Tobacco Use/Smoking Question Answer Notes Patient is [...] Never (0 point) Points 4 Interpretation Positive Section Notes: smokes a cigar 6 times a yea r Vital Signs Blood pressure systolic 108 mm Hg 04/27/19 25 Blood pressure diastolic 64 mm Hg 025 Height 73 in 04/27/2024 Weight 277 lbs 04/27/2024 BMI 36.54 kg/m2 04/27/2024 weight is up 12 pounds since 11-12-23 Encounters Encounter Location Date Provider Diagnosis Michael Arriola MD [address] [place] [phone] 04/27/2024 Michael Arriola Type 2 diabetes mellitus without complications E11.9 ; Annual physical exam Z00.00 ; Elevated LFTs R79.89 ; Gastroesophageal reflux disease with esophagitis without hemorrhage K21.00 ; Atrial fibrillation, unspecified type I48.91 ; Colon cancer screening Z12.11 and Depression screening Z13.31 Assessments Encounter Date Diagnosis (ICD Code) Assessment Notes Treatment Notes Treatment Clinical Notes Section Notes 04/27/2024 Type 2 diabetes mellitus without complications (ICD-10 - E11.9) is on mounjorno but not losing weight. . will hold off on getting on statins until lft's are better. 04/27/2024 Annual physical exam (ICD-10 - Z00.00) labs reviewed and discussed with patient 04/27/2024 Elevated LFTs (ICD-10 - R79.89) will continue to monitor 04/27/2024 Gastroesophageal reflux disease with esophagitis without hemorrhage (ICD-10 - K21.00) stable, will continue current regiment 04/27/2024 Atrial fibrillation, unspecified type (ICD-10 - I48.91) stable 04/27/2024 Colon cancer screening (ICD-10 - Z12.11) guaiac negative 04/27/2024 Depression screening (ICD-10 - Z13.31) negative screen Plan Of Treatment Medication Medication Name Sig Start Date Stop Date Notes Pantoprazole Sodium 40 MG 1 tablet Orall y Once a day for 30 days Treatment Notes Assessment Notes Type 2 diabetes mellitus without complic ations is on mounjorno but not losing weight. . will hold off on getting on statins until lft's are better. Annual physical exam labs reviewed and d iscussed with patient Elevated LFTs will continue to mon itor Gastroesophageal reflux dise ase with esophagitis without hemorrhage stable, will continue current regiment Atrial fibrillation, unspecified type st able Colon cancer screening guaiac negative Depression screening negative screen Pending Test Test Name Order Date US ABD 04/27/2024 Future Test Test Name Order Date Liver Panel 06/25/2024 Next Appt Details Provider Name:Michael jain, 06/23/2024 07:00:00 AM, [address] [place] [address], [address] [place] [address], [phone], Provider Name:Michael laughlinr, 10/23/2024 07:30:00 AM, [address] [place] [address], [address] [place] [address], [phone], Provider Name:Michael jain, 10/29/2024 07:45:00 AM, [address] [place] [address], [address] [place] [address], [phone], Provider Name:Michael laughlinr, 04/22/2025 07:15:00 AM, [address] [place] [address], [address] [place] [address], [phone], Provider Name:Michael laughlinr, 04/29/2025 02:30:00 PM, [address] [place] [address], [address], [phone], Progress Notes * ELSA LEUNGDOB: 0 (53 yo M)Acc No.[id number]:04/27/2024 Progress Notes Patient:?ELSA LEUNG Provider:?Michael Arriola MD :1970???Age:53 Y???Sex:Male Saul e:04/27/2024 Address:[address] [place], [place] [phone] Subjective: * Chief Complaints: * ???1. ANNUAL EXAM. * HPI: ???Depression Screening:?PHQ-9?Little interest or pleasure in doing things?Not at all,?Feeling down, depressed, or hopeless?Not at all,?Trouble falling or staying asleep, or sleeping too much?Not at all,?Feeling tired or having little energy?Not at all,?Poor appetite or overeating?Not at all,?Feeling bad about yourself or that you are a failure, or have let yourself or your family down?Not at all,?Trouble concentrating on things, such as reading the newspaper or watching television?Not at all,?Moving or speaking so slowly that other people could have noticed; or the opposite, being so fidgety or restless that you have been moving around a lot more than usual?Not at all,?Thoughts that you would be better off or of hurting yourself in some way?Not at all,?Total Score?0.?Interpretation and Intervention?Depression Screening Findings?Negative,?Follow-Up for Depression?: review of PHQ-9 found negative result, no follow-up needed.?Communication Needs:?Communication Needs?Does the patient have a hearing impairment?No,?Does the patient have a vision impairment??No,?Does the patient have a cognition impairment??No.?SDOH Questions:?SDOH Questions?In the past year have you been worried about losing housing??No,?In the past year have you or any family members you live with been unable to get any of the following when it was really needed? Check all that apply:?None.?Symptom(s):? patient is a 53 yo male here for annual visit with review of recent labs and follow up of chronic issues. * ROS:?General/Constitutional:?Patient denies?fatigue, headache.?Change in appetite?denies.?Chills?denies.?Fever?denies.?Ophthalmologic:?Blurred vision?denies.?Discharge?denies.?Pain?denies.?ENT:?Patient denies?decreased sense of smell, any loss of taste, sore throat.?Decreased hearing?denies.?Sore throat?denies.?Swollen glands?denies.?Endocrine:?Cold intolerance?denies.?Excessive thirst?denies.?Heat intolerance?denies.?Weight loss?denies.?Respiratory:?Cough?denies.?Shortness of breath at rest?denies.?Shortness of breath with exertion?denies.?Wheezing?denies.?Cardiovascular:?Chest pain at rest?denies.?Chest pain with exertion?denies.?Irregular heartbeat?denies.?Shortness of breath?denies.?Gastrointestinal:?Abdominal pain?denies.?Change in bowel habits?denies.?Diarrhea?denies.?Nausea?denies.?Rectal bleeding?denies.?Vomiting?denies .?Genitourinary:?Blood in urine?denies.?Difficulty urinating?denies.?Frequent urination?denies.?Musculoskeletal:?Patient denies?muscle aches.?Painful joints?denies.?Weakness?denies.?Peripheral Vascular:?Patient denies?red and blue toes.?Skin:?Dry skin?denies.?Itching?denies.?Denies?Mole(s),? changes in moles, new moles or any lesions of concern.?Denies?Photosensitivity.?Rash?denies.?Neurologic:?Dizziness?denies.?Fainting?denies.?Headache?denies.? * Medical History:?2021 had sheng mbar surgery with secondary infection. had to take out titanium and reoperate, Atrial fibrillation 2004 with ablation, Colonoscopy 2020.. * Family History:?Father: dece ased 64 yrs.?Mother: 71 yrs.?1 brother(s) , 1 sister(s) . 1 son(s) . .? Father- [place] Mother Lung Cancer. * Social History:?Tobacco Use:?Tobacco Use/Smoking?Patient is a?current smoker.?Drugs/Alcohol:?Alcohol Screen?Did you have a drink containing alcohol in the past year??Yes,?How often did you have a drink containing alcohol in the past year??4 or more times a week (4 points),?How many drinks did you have on a typical day when you were drinking in the past year??1 or 2 drinks (0 point),?How often did you have 6 or more drinks on one occasion in the past year??Never (0 point),?Points?4,?Interpretation?Positive.?Miscellaneous:?Caffeine: yes, frequency:2-3. Children: yes. Exercise: yes, GYm bike x 4 miles half hour. Home smoke detector use: yes. Housing: owning. Living with: family. Occupation: weeks/months/years, unemployed,employed, works full-time. Pets: 2 dogs. Travel outside of the [place]: no. ???smokes a cigar 6 times a year. * Medications:?Taking Mounjaro 5 MG/0.5ML Solution Pen-injector `10 mg Subcutaneous , Taking BD Pen Needle Micro U/F 32G X 6 MM Miscellaneous as directed 3 times daily , Not-Taking/PRN Pantoprazole Sodium 40 MG Tablet Delayed Release 1 tablet Orally Once a day , Not-Taking/PRN NovoLOG 100 UNIT/ML Solution 10 to 20 units Injection twice a day , Not-Taking/PRN NovoLOG FlexPen 100 UNIT/ML Solution Pen-injector 10 to 20 units sq twice a day , Not-Taking/PRN oxyCODONE HCl 5 MG Tablet 1 tablet as needed Orally every 6 hrs , Discontinued Levemir FlexPen 100 UNIT/ML Solution Pen-injector as directed Subcutaneous 60 units daily , Discontinued Basaglar KwikPen 100 UNIT/mL, 3 mL pen Solution Pen-injector as directed Subcutaneous 60 units daily , Discontinued Lantus SoloStar 100 UNIT/ML Solution Pen-injector as directed Subcutaneous 60 units daily , Unknown Atorvastatin Calcium 80 MG Tablet TAKE 1 TABLET BY MOUTH EVERY DAY Oral Once a day , Unknown FreeStyle Ray 2 Sensor - Miscellaneous as directed every 14 janessa , Unknown Tadalafil 10 MG Tablet 1 or 2 tabs Orally Once a day as needed , Unknown Eliquis 5 MG Tablet 1 tablet Orally Twice a day , Unknown Basaglar KwikPen 100 UNIT/ML Solution Pen-injector as directed Subcutaneous 60 units twice a saul , Unknown Lantus SoloStar 100 UNIT/ML Solution Pen-injector as directed Subcutaneous 60 units twice daily * Allergies:?N.K.D.A. Objective: * Vitals:?Ht: 73, Wt: 277, BMI :36.54, BP:108/64, Wt-k.65. weight is up 12 pounds since 11-12-23. * ???Past Orders: ???Lab:Comprehensive [place]. P trina Fast (Order Date - 04/21/2024) (Collection Date & Time - 04/21/2024 07:00 AM) ? Value Reference Range ?Sodium 138 135-145 - mmo l/L ?Bilirubin Total 0.7 0.0- 1.0 - mg/dL ?Aspartate Amino Transferase 57 H 5-37 - U/L ?Alanine Aminotransferase 46 H 0-40 - U/L ?Total Protein 7.0 6.5-8. 0 - g/dL ?Albumin Level 4.0 3.5-5. 0 - g/dL ?Alkaline Phosphatase 76 39-117 - U/L ?Potassium 3.7 3.3-5.1 - mmol/L ?Chloride 110 H 96-108 - mm ol/L ?Carbon Dioxide 21 L 22-29 - mmol/L ?Anion Gap 11 L 12-20 - ?Blood Urea Nitrogen 10 9-16 - mg/dL ?Creatinine 1.00 0.5-1.4 - mg/dL ?Estimated Glomerular Filt Rate > 60 - ?Glucose Fasting 158 H 60-9 9 - mg/dL ?Calcium 8.8 8.4-10.2 - m g/dL ???Lab:UA CC w/rflx Micro + Cult (Order Date - 04/21/2024) (Collection Date & Time - 04/21/2024 07:00 AM) ? Value Reference Range ?Color Urine Yellow - ?Appearance Urine Clear - ?PH 6.5 5.0-9.0 - ?Glucose Urine UA Negative Neg ative - mg/dL ?Urine Blood Negative Negative - ?Specific Bronson - Urine 1.010 1.005-1.025 - ?Urine Protein Negative Neg-Tr isamar - mg/dL ?Urine Ketones Negative Negati ve - mg/dL ?Nitrite Urine Negative Negati ve - ?Leukocyte Esterase Urine Negative Negative - ???Lab:PSA,Total (Free>4and< 10) (Order Date - 04/21/2024) (Collection Date & Time - 04/21/2024 07:00 AM) ? Value Reference Range ?PSA,Total (Free>4and<10) 0.15 0.00-4.00 - ng/mL ???Lab:Microalbumin, Random (Order Date - 04/21/2024) (Collection Date & Time - 04/21/2024 07:00 AM) ? Value Reference Range ?Creatinine Urine 103.90 - m g/dL ?Microalbumin Urine 26.0 - mg/L ?Microalbum Creatinine Ratio Ur 25.0 <30 - ug/mg cr ???Lab:Hemoglobin A1c (Order Date - 04/21/2024) (Collection Date & Time - 04/21/2024 07:00 AM) ? Value Reference Range ?Hemoglobin A1c % 7.5 H <6. 0 - % ?Estimated Average Glucose 169 - mg/dL ???Lab:Complete Blood Count Auto Diff (Order Date - 04/21/2024) (Collection Date & Time - 04/21/2024 07:00 AM) ? Value Reference Range ?White Blood Count 6.1 4. 8-10.8 - X10*3/uL ?Red Blood Count 4.89 4.60 -5.80 - X10*6/uL ?Hemoglobin 14.2 14.0-18.0 - g/dl ?Hematocrit 42.1 42.0-52.0 - % ?Mean Corpuscular Volume 86.1 80.0-98.0 - fL ?Mean Corpuscular Hemoglobin 29.0 27.0-33.0 - pg ?Mean Corpuscular HGB Conc 33.7 31.0-36.0 - g/dl ?Red Cell Distribution Width 13.5 11.0-16.0 - % ?Platelet Count 209 160-4 00 - X10*3/uL ?Mean Platelet Volume 11.0 9.4-12.4 - fL ?Neutrophils Percent Auto 50.8 45-73 - % ?Imm Gran Pct Auto 0.3 0. 0-0.4 - % ?Lymphocytes Percent Auto 31.4 20-40 - % ?Monocytes Percent Auto 7.1 2-11 - % ?Eosinophils Percent Auto 9.7 H 0-4 - % ?Basophils Percent Auto 0.7 0-2 - % ?NRBC Pct Auto 0.0 0.0-0. 2 - /100WBC ?Neutrophils Absolute Auto 3.1 2.0-8.3 - x10*3/uL ?Imm Gran Abs Auto 0.02 0. 00-0.03 - X10*3/uL ?Lymphocytes Absolute Auto 1.9 1.2-4.9 - X10*3/uL ?Monocytes Absolute Auto 0.4 0.1-1.2 - X10*3/uL ?Eosinophils Absolute Auto 0.6 H 0.0-0.4 - X10*3/uL ?Basophils Absolute Auto 0.0 0.0-0.2 - X10*3/uL ?NRBC Abs Auto 0.000 0.0-0. 012 - X10*3/uL ???Lab:Lipid Panel (Order Da te - 04/21/2024) (Collection Date & Time - 04/21/2024 07:00 AM) ? Value Reference Range ?Triglycerides 117 <150 - mg/dL ?Cholesterol 136 <200 - m g/dL ?LDL Cholesterol Calculated 84 <100 - mg/dL ?HDL Cholesterol 29 L >40 - mg/dL * Examination: ???General Examination: ?GENERAL APPEARANCE:?well developed, well nourished, in no acute distress.?HEAD:?normocephalic, atraumatic.?EYES:?pupils equal, round, reactive to light and accommodation, sclera non-icteric.?EARS:?normal.?ORAL CAVITY:?mucosa moist.?THROAT:?clear.?NECK/THYROID:?neck supple, full range of motion, no cervical lymphadenopathy, no bruits.?SKIN:?warm and dry, no suspicious lesions.?HEART:?regular rate and rhythm, S1, S2 normal, no murmurs.?LUNGS:?clear to auscultation bilaterally.?ABDOMEN:?soft, nontender, nondistended, bowel sounds present, normal, no organomegaly , no masses palpable.?RECTAL EXAM:?normal tone, no external hemorrhoids, no masses palpable, prostate normal, stool guaiac negative.?MALE GENITOURINARY:?not examined.?EXTREMITIES:?no clubbing, cyanosis, or edema.?NEUROLOGIC:?nonfocal, motor strength normal upper and lower extremities, sensory exam intact.?PODIATRIC:?normal pinprick, normal pulse, normal light touch.?FOOT EXAM:?.? Assessment: * Assessment: 1.?Annual physical exam - Z0 0.00 (Primary)???2.?Type 2 diabetes mellitus without complications - E11.9???3.?Elevated LFTs - R79.89???4.?Gastroesophageal reflux disease with esophagitis without hemorrhage - K21.00???5. Atrial fibrillation, unspecified type - I48.91???6.?Colon cancer screening - Z12.11???7.?Depression screening - Z13.31??? Plan: * Treatment: 2.?Type 2 diabetes mellitus without complications?LAB: Liver Panel (Ordered for 06/25/2024) Notes: is on mounjorno but not losing weight. . will hold off on getting on statins until lft's are better.?? 3.?Elevated LFTs?Imaging: US ABD Notes: will continue to monitor??4.?Gastroesophageal reflux disease with esophagitis without hemorrhage? Notes: stable, will continue current regiment??5.?Atrial fibrillation, unspecified type? Notes: stable??6.?Colon cancer screening? Notes: guaiac negative??7.?Depression screening? Notes: negative screen??8.?Others? Refill Pantoprazole Sodium Tablet Delayed Release, 40 MG, 1 tablet, Orally, Once a day, 30 days, 30Tablet, Refills 12.?? * Preventive Medicine:? ??Counseling:?Care goal follow-up plan:?Counseling for abnormal BMI provided?Yes,?Above Normal BMI Follow-up?Giving encouragement to exercise.? ??Diabetes Care Plan:?Patient Lifestyle Goals?Needs to maintain diet control.?Treatment Goals?A1C< 7.?Barriers ?No specific barriers, doing well.?Self-Managment Plan?Increase light exercise to 3 times a week for 30 minutes.?Expected Outcome maintaining stable blood sugar levels within a target range.? * * The named appointment provid er may or may not be the originator of this progress note, and it is not deemed complete until electronically signed by the appointment provider. Sign off status: Pending * Provider:?Michael Arriola MD Date:?0 04/27/2024 Generated for Gina howard/Mallika/eTransmitting on:?05/11/2024 08:51 AM EST History and Physical Notes * HPI (History of Present Illness) Category Sub-Category Detail Notes Category Not es Symptom(s) patient is a 53 yo male here for annual visit with review of recent labs and follow up of chronic issues. Depression Screening PHQ-9 Little inte rest or pleasure in doing things: Not at all Feeling down, depressed, or hopeless: No t at all Trouble falling or staying asleep, or sl eeping too much: Not at all Feeling tired or having little energy: N ot at all Poor appetite or overeating: Not at all Feeling bad about yourself o r that you are a failure, or have let yourself or your family down: Not at all Trouble concentrating on thi ngs, such as reading the newspaper or watching television: Not at all Moving or speaking so slowly that other people could have noticed; or the opposite, being so fidgety or restless that you have been moving around a lot more than usual: Not at all Thoughts that you would be b silvia off or of hurting yourself in some way: Not at all Total Score: 0 Interpretation and Intervention Depression Caitlin gerard Findings: Negative Follow-Up for Depression: : review of PH Q-9 found negative result, no follow-up needed SDOH Questions SDOH Questions In the past year have you been worried about losing housing?: No In the past year have you or any family members you live with been unable to get any of the following when it was really needed? Check all that apply:: None Communication Needs Communication Needs Does the patient have a hearing impairment: No Does the patient have a vision impairmen t?: No Does the patient have a cognition impair ment?: No Examination Category Sub-Category Detail Notes Category Not es General Examination GENERAL APPEARANCE: well dev eloped, well nourished, in no acute distress HEAD: normocephalic, atrau matic EYES: pupils equal, round, reactive to light and accommodation, sclera non-icteric EARS: normal THROAT: clear NECK/THYROID: neck supple, full ra nge of motion, no cervical lymphadenopathy, no bruits HEART: regular rate and rhy thm, S1, S2 normal, no murmurs LUNGS: clear to auscultatio n bilaterally ABDOMEN: soft, nontender, non distended, bowel sounds present, normal, no organomegaly , no masses palpable NEUROLOGIC: nonfocal, motor stre ngth normal upper and lower extremities, sensory exam intact SKIN: warm and dry, no hetal picious lesions EXTREMITIES: no clubbing, cyanosi s, or edema MALE GENITOURINARY: not examined RECTAL EXAM: normal tone, no exte rnal hemorrhoids, no masses palpable, prostate normal, stool guaiac negative ORAL CAVITY: mucosa moist FOOT EXAM: Date: 04/28/2024 normal pinprick . normal pulse. normal light touch. PODIATRIC: normal pinprick, nor mal pulse, normal light touch
== END 2024-05-11 08:37 | disposition home or self-care (01) ==
LOC: HO.HMGCX 08:36
PROVIDERS: PCP Internal Medicine; Visit Provider Internal Medicine
DX: R79.89 Other specified abnormal findings of blood chemistry (principal)
CPT/HCPCS: 76700

== ENCOUNTER → 2024-05-11 08:44 | Outpatient (BNV) | payer BC, SELFPAY | PROVIDERS: PCP Internal Medicine; Visit Provider Radiology Diagnostic Radiology | DX: K76.0 Fatty (change of) liver, not elsewhere classified (principal); N28.1 Cyst of kidney, acquired | CPT/HCPCS: 76700 ==

== ENCOUNTER 2024-07-09 10:40 | Outpatient (REF) | payer BC, SELFPAY ==
[2024-07-09 11:55] LABS: Alanine Aminotransferase 53 U/L (0-40); Alkaline Phosphatase 88 U/L (39-117); Aspartate Amino Transferase 36 U/L (5-37); Bilirubin Direct 0.2 mg/dL (0.0-0.5); Bilirubin Total 0.6 mg/dL (0.0-1.0); Total Protein 6.7 g/dL (6.5-8.0)
--- OUTSIDE RECORDS SUMMARY | 2024-07-09 12:37 | XMS_ITS ---
Author Organization Michael Arriola MD Address [address] [place] [address] [place] [phone] Care Team Providers Care Filter Tip Inspector Name Role Phone Michael Arriola Primary Care Provider REASON FOR VISIT us results Encounters Encounter Location Date Provider Diagnosis Michael Arriola MD [address] [place] [address] [place] [address] [phone] 05/19/2024 Michael Arriola Plan Of Treatment Next Appt Details Provider Name:Michael laughlinr, 07/16/2024 09:00:00 AM, [address] [place] [address], [address], [phone], Provider Name:Michael jain, 10/23/2024 07:30:00 AM, [address] [place] [address], [address], [phone], Provider Name:Michael jain, 10/29/2024 07:45:00 AM, [address] [place] [address], [address], [phone], Provider Name:Michael jain, 04/22/2025 07:15:00 AM, [address] [place] [address], [address], [phone], Provider Name:Michael jain, 04/29/2025 02:30:00 PM, [address] [place] [address], [address], [phone], Progress Notes * LISA LEUNG: 0 (53 yo M)Acc No.[id number]:05/19/2024 Patient:?ELSA LEUNG :[id number]???Age:53 Y???Sex:Male Address:[address] [place] [address], [place] [id number] * true * Date:? Generated for Gina howard/Mallika/eTransmitting on:?07/09/2024 12:37 PM EDT
--- OUTSIDE RECORDS SUMMARY | 2024-07-09 12:37 | XMS_ITS | Patient Health Record ---
Author Organization Michael Arriola MD Address [address] [place], [place] [id number] Care Team Providers Care News Photographer Name Role Phone Michael Arriola Primary Care Provider Allergies No Known Allergies Results Component Value Reference Range Notes Hemoglobin A1c Reviewed date:08/05/2023 10:53:35 AM Interpretation: Performing Lab: Notes/Report: Hemoglobin A1c 7.3 Glucose, finger stick Reviewed date:08/05/2023 10:53:20 AM Interpretation: Performing Lab: Notes/Report: Value 132 Complete Blood Count Auto Di ff Reviewed date:08/06/2023 11:07:14 AM Interpretation: Performing Lab:[facility], [address] [place] [phone] Notes/Report: White Blood Count 10.0 4.8-10.8 X10*3/uL [...] 0.0-0.2 /100WBC Neutrophils Absolute Auto 6.1 2.0-8.3 x10*3/uL Imm Gran Abs Auto 0.04 0.00-0.03 X10*3/uL Lymphocytes Absolute Auto 2.2 1.2-4.9 X10*3/uL Monocytes Absolute Auto 0.9 0.1-1.2 X10*3/uL Eosinophils Absolute Auto 0.8 0.0-0.4 X10*3/uL Basophils Absolute Auto 0.1 0.0-0.2 X10*3/uL NRBC Abs Auto 0.000 0.0-0.012 X10*3/uL IRON PROFILE Reviewed date:08/06/2023 11:06:30 AM Interpretation: Performing Lab:[facility], [address] [place] [phone] Notes/Report: Iron 29 45-160 mcg/dL Total Iron Binding Capacity 529 228-428 mcg/dL Percent Iron Saturation 5 15-50 % Unsaturated Iron Binding > 500 Complete Blood Count Auto Di ff Reviewed date:08/22/2023 01:46:37 PM Interpretation:MASOOD 08/21 Performing Lab:[facility], [address] [place] [phone] Notes/Report: White Blood Count 19.2 4.8-10.8 X10*3/uL [...] 0.0-0.2 /100WBC Neutrophils Absolute Auto 14.7 2.0-8.3 x10*3/uL Imm Gran Abs Auto 0.09 0.00-0.03 X10*3/uL Lymphocytes Absolute Auto 2.9 1.2-4.9 X10*3/uL Monocytes Absolute Auto 1.3 0.1-1.2 X10*3/uL Eosinophils Absolute Auto 0.1 0.0-0.4 X10*3/uL Basophils Absolute Auto 0.1 0.0-0.2 X10*3/uL NRBC Abs Auto 0.000 0.0-0.012 X10*3/uL Complete Blood Count Auto Di ff Reviewed date:08/23/2023 08:29:45 AM Interpretation: Performing Lab:[facility], [address] [place] [phone] Notes/Report: White Blood Count 9.8 4.8-10.8 X10*3/uL [...] 0.0-0.2 /100WBC Neutrophils Absolute Auto 6.0 2.0-8.3 x10*3/uL Imm Gran Abs Auto 0.03 0.00-0.03 X10*3/uL Lymphocytes Absolute Auto 2.5 1.2-4.9 X10*3/uL Monocytes Absolute Auto 0.6 0.1-1.2 X10*3/uL Eosinophils Absolute Auto 0.7 0.0-0.4 X10*3/uL Basophils Absolute Auto 0.1 0.0-0.2 X10*3/uL NRBC Abs Auto 0.000 0.0-0.012 X10*3/uL Urinalysis and Microscopic Reviewed date:08/23/2023 12:20:31 PM Interpretation: Performing Lab:[address] [phone] Notes/Report: Color Urine Yellow Appearance Urine Cloudy PH 6.0 5.0-9.0 Glucose Urine UA Negative Negative mg/dL Urine Blood Negative Negative Specific [place] - Urine 1.015 1.005-1.025 Urine Protein 30 (1+) Neg-Trace mg/dL Urine Ketones Negative Negative mg/dL Nitrite Urine Negative Negative Leukocyte Esterase Urine Moderate (2+) Negative RBC Urine 0-2 0-2 /HPF WBC Urine >50 0-5 /HPF Squamous Epithelial Cell Urine 0-2 0-2 /HPF Bacteria Urine 4+ None Seen Hyaline Casts Urine 0-2 0-2 /LPF Urine Culture Reviewed date:08/26/2023 01:45:37 PM Interpretation: Performing Lab:[address] [phone] Notes/Report: O:ESCCOL Escherichia coli Urine Culture Quant Urine Culture > 100,000 cfu/mL Ampicillin 4 Ceftriaxone <=0.25 Gentamicin <=1 Levofloxacin <=0.12 Nitrofurantoin <=16 Trimethoprim/Sulfamethox azole <=20 Hold Gold Reviewed date:10/14/2023 02:08:13 PM Interpretation: Performing Lab:[address] [phone] Notes/Report: Hold Gold See Note Specimen held untested for 24 hours; Call to request Chemistry testing. Liver Panel Reviewed date:10/14/2023 05:59:36 PM Interpretation: Performing Lab:[facility], [address] [place] [phone] Notes/Report: Bilirubin Total 0.4 0.0-1.0 mg/dL Bilirubin Direct 0.1 0.0-0.5 mg/dL Aspartate Amino Transferase 33 5-37 U/L Alanine Aminotransferase 27 0-40 U/L Total Protein 7.0 6.5-8.0 g/dL Albumin Level 4.1 3.5-5.0 g/dL Alkaline Phosphatase 72 39-117 U/L Glucose Fasting Reviewed date:10/14/2023 05:59:16 PM Interpretation: Performing Lab:[facility], [address] [place] [phone] Notes/Report: Glucose Fasting 139 60-99 mg/dL A fasting glucose of 126 mg/dl or greater on more than one occasion is considered diagnostic of diabetes. IRON PROFILE Reviewed date:10/14/2023 05:59:27 PM Interpretation: Performing Lab:[facility], [address] [place] [phone] Notes/Report: Iron 97 45-160 mcg/dL Total Iron Binding Capacity 256 228-428 mcg/dL Percent Iron Saturation 38 15-50 % Unsaturated Iron Binding 159 Lipid Panel with Reflex Reviewed date:10/14/2023 05:58:52 PM Interpretation: Performing Lab:[facility], [address] [place] [phone] Notes/Report: Triglycerides 161 <150 mg/dL Desirable Triglyceride: [...] A1c Reviewed date:10/14/2023 05:59:03 PM Interpretation: Performing Lab:[facility], [address] [place] [phone] Notes/Report: Hemoglobin A1c % 5.8 <6.0 % [...] average glucose, using the formula of the O7W-Iqttiqh Average Glucose study (ADAG), Diabetes Care, Vol.31,#8, Oct. 2007 UA CC w/rflx Micro + Cult Reviewed date:04/21/2024 12:50:29 PM Interpretation: Performing Lab:[address] [phone] Notes/Report: [id number] Urine, Clean Catch Color Urine Yellow Appearance Urine Clear PH 6.5 5.0-9.0 Glucose Urine UA Negative Negative mg/dL Urine Blood Negative Negative Specific [place] - Urine 1.010 1.005-1.025 Urine Protein Negative Neg-Trace mg/dL Urine Ketones Negative Negative mg/dL Nitrite Urine Negative Negative Leukocyte Esterase Urine Negative Negative Complete Blood Count Auto Di ff Reviewed date:04/21/2024 12:48:58 PM Interpretation: Performing Lab:[facility], [address] [place] [phone] Notes/Report: White Blood Count 6.1 4.8-10.8 X10*3/uL [...] 0.0-0.2 /100WBC Neutrophils Absolute Auto 3.1 2.0-8.3 x10*3/uL Imm Gran Abs Auto 0.02 0.00-0.03 X10*3/uL Lymphocytes Absolute Auto 1.9 1.2-4.9 X10*3/uL Monocytes Absolute Auto 0.4 0.1-1.2 X10*3/uL Eosinophils Absolute Auto 0.6 0.0-0.4 X10*3/uL Basophils Absolute Auto 0.0 0.0-0.2 X10*3/uL NRBC Abs Auto 0.000 0.0-0.012 X10*3/uL Comprehensive [place]. Panel Fa st Reviewed date:04/21/2024 12:49:57 PM Interpretation: Performing Lab:[facility], [address] [place] [phone] Notes/Report: Sodium 138 135-145 mmol/L Potassium 3.7 [...] Panel Reviewed date:04/21/2024 12:48:41 PM Interpretation: Performing Lab:[address] [phone] Notes/Report: Triglycerides 117 <150 mg/dL Desirable Triglyceride: [...] (Free>4and<10) Reviewed date:04/21/2024 12:50:08 PM Interpretation: Performing Lab:[address] [phone] Notes/Report: PSA,Total (Free>4and<10) 0.15 0.00-4.00 ng/mL A [...] Random Reviewed date:04/21/2024 12:49:06 PM Interpretation: Performing Lab:[address] [phone] Notes/Report: Creatinine Urine 103.90 Microalbumin Urine 26.0 Microalbum/Creatinine Ratio Ur 25.0 <30 ug/mg cr Albumin/Creatinine Ratio Reference Ranges: Normal: < 30 ug/mg creatinine Microalbuminuria: 30 - 300 ug/mg creatinine Clinical Albuminuria: > 300 ug/mg creatinine Hemoglobin A1c Reviewed date:04/21/2024 12:49:18 PM Interpretation: Performing Lab:[facility], [address] [place] [phone] Notes/Report: Hemoglobin A1c % 7.5 <6.0 % [...] average glucose, using the formula of the S8F-Bwkyesb Average Glucose study (ADAG), Diabetes Care, Vol.31,#8, Oct. 2007 US abdomen complete Reviewed date:05/12/2024 12:40:56 PM Interpretation: Performing Lab: Notes/Report: [facility] [place] [address] Ultrasound Report Signed Patient: Elsa Chavira MR#: [id number] : 1970 Acct:[id number] Age/Sex: 53 / M ADM Date: 05/11/24 Loc: HO.HMGCX Attending Dr: Michael Arriola MD Ordering Physician: Michael Arriola MD Date of Service: 05/11/24 Procedure(s): US abdomen complete Accession Number(s): [id number] cc: Michael Arriola MD CLINICAL HISTORY: ELEVATED LFTS US abdomen complete with duplex and color Doppler Comparison: None Findings: The visualized pancreas, aorta, and inferior vena cava are unremarkable. Liver normal size and mildly echogenic. Right lobe cm length. No focal hepatic masses. Common duct 4.5 mm diameter. Physiologic distention of the gallbladder. No gallstones or sludge. No gallbladder wall thickening. No pericholecystic fluid. No sonographic Olguin sign. Main portal vein antegrade. Right kidney normal size, 12.8 cm in length. Normal cortical width and echotexture. No solid or cystic renal masses. Nonobstructing caliceal stone midpole measuring 5 x 4 x 3 mm. No hydronephrosis. Left kidney normal, 12.8 cm in length. Normal cortical width and echotexture. No solid or cystic renal masses. Nonobstructing caliceal equivocal stone lower pole measuring 4 x 4 x 4 mm. No hydronephrosis. Spleen measures 16.1 cm. No splenic masses. No ascites. No lymphadenopathy. Impression: 1. Echogenic liver reflecting hepatic steatosis or diffuse hepatocellular disease. No focal hepatic lesions. 2. Mild splenomegaly. 3. Nephrolithiasis on the right. Equivocal nephrolithiasis on the left. No hydronephrosis. This document has been electronically signed by: Suraj Patel MD on 05/11/2024 10:40:01 Dictated By: Suraj Patel MD Signed By: <Electronically signed by Suraj Patel MD in OV> 05/11/24 1041 DD/ 1040 TD/TT: 05/11/24 1040 It Infrastructure Consultant: [facility] [address] [place] [address] [place] [address] Ultrasound Report Signed Patient: Miles Chavira MR#: [id number] : 1970 Acct:[id number] Age/Sex: 53 / M ADM Date: 05/11/24 Loc: HO.HMGCX Attending Dr: Michael Arriola MD Ordering Physician: Michael Arriola MD Date of Service: 05/11/24 Procedure(s): US abdomen complete Accession Number(s): [id number] cc: Michael Arriola MD CLINICAL HISTORY: ELEVATED LFTS US abdomen complete with duplex and color Doppler Comparison: None Findings: The visualized pancreas, aorta, and inferior vena cava are unremarkable. Liver normal size an d mildly echogenic. Right lobe cm length. No focal hepatic masses. Common duct 4.5 mm diameter. Physiologic distenti on of the gallbladder. No gallstones or sludge. No gallbladder wall thickening. No pericholecystic fluid. No sonographic Olguin sign. Main portal vein antegrade. Right kidney normal size, 12.8 cm in length. Normal cortical width and echotexture. No daryn d or cystic renal masses. Nonobstructing caliceal stone midpole measur ing 5 x 4 x 3 mm. No hydronephrosis. Left kidney normal, 12.8 cm in length. Normal cortical width and echotexture. No daryn d or cystic renal masses. Nonobstructing caliceal equivocal stone lowe r pole measuring 4 x 4 x 4 mm. No hydronephrosis. Spleen measures 16.1 cm. No splenic masses. No ascites. No lymphadenopathy. Impression: 1. Echogenic liver reflecting hepatic steatosis or diffuse hepatocellular disease. No focal hepatic lesions. 2. Mild splenomegaly. 3. Nephrolithiasis o n the right. Equivocal nephrolithiasis on the left. No hydronephrosis. This document has be en electronically signed by: Suraj Patel MD on 05/11/2024 10:40:01 Dictated By: Suraj Patel MD Signed By: <Electronically signed by Suraj Patel MD in OV> 05/11/24 1041 DD/ 1040 TD/TT: 05/11/24 1040 It Infrastructure Consultant: Liver Panel (Not yet reviewe d by provider) Interpretation: Performing Lab:[facility], [address] [place] [phone] Notes/Report: Bilirubin Total 0.6 0.0-1.0 mg/dL Bilirubin Direct 0.2 0.0-0.5 mg/dL Aspartate Amino Transferase 36 5-37 U/L Alanine Aminotransferase 53 0-40 U/L Total Protein 6.7 6.5-8.0 g/dL Albumin Level 4.0 3.5-5.0 g/dL Alkaline Phosphatase 88 39-117 U/L Reason For Referral Reason gastroesophageal ref lux needs endoscopy done ins referral needed Diagnosis 1 Gastroesophageal ref lux disease with esophagitis without hemorrhage (K21.00) Referral Organization Michael Arriola MD Referring Provider First Name Michael Referring Provider Last Name Zeinab Referring Provider Speciality Internal M edicine Referred Provider KULWANT CABRERA Referred Provider Specialty Gastroentero logy General Notes Kathleen Peoples 01:52:13 PM EDT > info faxed phone [phone], Kathleen Peoples 10/18/2023 03:22:18 PM EDT > patient is aware of appt , Kathleen Peoples 12/27/2023 09:55:53 AM EDT > received a letter from Dr. Cabrera office patient no showed appt on 12-17-2023. Called patient he will be calling to resched appt. Referral Priority Routine Referral Appointment Date 12/17/2023 Medications Medication SIG (Take, Route, Frequency, Duration) Notes Start Date End Date Status NovoLOG FlexPen 100 UNIT/ML 10 to 20 [...] times daily for 90 days 11/20/2022 Active Lantus SoloStar 100 UNIT/ML as directed Subcutaneous 60 units twice daily for 90 days 09/27/2023 Unknown Eliquis 5 MG 1 tablet Orally Twic e a day for 30 day(s) 09/26/2023 Unknown Basaglar KwikPen 100 UNIT/ML as directed Subcutaneous 60 units twice a siva for 90 days Unknown FreeStyle Ray 2 Sensor - as directed every 14 janessa for 60 days 02/27/2022 Unknown Tadalafil 10 MG 1 or 2 tabs Orally O nce a day as needed for 30 day(s) 09/26/2023 Unknown Pantoprazole Sodium 40 MG 1 tablet Orally Once a day for 30 days Active Atorvastatin Calcium 80 MG TAKE 1 TABLET BY MOUTH EVERY DAY Oral Once a day for 90 days 12/08/2021 Unknown Immunizations Vaccine Route Administration Date Status Comme nts SARS-COV-2 Pfizer Unknown 06/04/2020 Administered SARS-COV-2 Pfizer Unknown 06/25/2020 Administered SARS-COV-2 Pfizer Unknown 03/14/2021 Administered Fluarix Quadrivalent IM Intramuscular 04/17/2022 Administe red SARS-COV-2 Moderna 2022 Unknown 04/04/2023 Administered [facility] Social History Tobacco Use: Social History Observation [...] a cigar 6 times a yea r smokes a cigar 6 times a yea r smokes a cigar 6 times a yea r smokes a cigar 6 times a yea r Problems Problem Type SNOMED Code ICD Code Onset Dates Problem Status W/U Status Risk Notes Problem 91598853 Type 2 diabetes mellitus without complications (E11.9) Active confirmed Problem 887503046 Other elevated white blood cell count (D72.828) Active confirmed Problem 005691148385254 Erectile dysfunction due to arterial insufficiency (N52.01) Active confirmed Problem 289002156 Lumbar disc dise ase (M51.9) Active confirmed Problem 042235594 Gastroesophageal reflux disease without esophagitis (K21.9) Active confirmed Problem History of pulmonary embolus (742619333) History of pulmonary embolism (Z86.711) Active confirmed Problem 36179666 Type 2 diabetes, controlled, with neuropathy (E11.40) Active confirmed Problem 85255719 Atrial fibrillation, unspecified type (I48.91) Active confirmed Problem 75891110 ADALBERTO (obstructive sleep apnea) (G47.33) Active confirmed Problem 211871276 Arthritis of kne e (M17.10) Active confirmed Problem 545833969 Gastroesophageal reflux disease with esophagitis without hemorrhage (K21.00) Active confirmed Problem 927530417 Gastric reflux (K21.9) Active confirmed Vital Signs Blood pressure diastolic 64 mm Hg 04/27/2024 dipika ght is up 12 pounds since 11-12-23 Height 73 in 04/27/2024 weight is up 12 pounds since 11-12-23 Blood pressure systolic 108 mm Hg 04/27/2024 weig ht is up 12 pounds since 11-12-23 Weight 277 lbs 04/27/2024 weight is up 12 pounds since 11-12-23 BMI 36.54 kg/m2 04/27/2024 weight is up 12 pounds since 11-12-23 Encounters Encounter Location Date Provider Diagnosis Michael Arriola MD [address] [place] [id number] 04/27/2024 Michael Arriola Type 2 diabetes mellitus without complications E11.9 ; Annual physical exam Z00.00 ; Elevated LFTs R79.89 ; Gastroesophageal reflux disease with esophagitis without hemorrhage K21.00 ; Atrial fibrillation, unspecified type I48.91 ; Colon cancer screening Z12.11 and Depression screening Z13.31 Michael Arriola MD [address] [place] [id number] 08/22/2023 Michael Arriola Other elevated white blood cell count D72.828 ; UTI symptoms R39.9 and Stool guaiac positive R19.5 Michael Arriola MD [address] [id number] 08/29/2023 Michael Arriola Gastric reflux K21.9 ; Type 2 diabetes, controlled, with neuropathy E11.40 and Other elevated white blood cell count D72.828 Michael Arriola MD [address] [place] [id number] 10/14/2023 Michael Arriola Type 2 diabetes mellitus without complications E11.9 and Anemia, unspecified type D64.9 Michael Arriola MD [address] [id number] 04/21/2024 Michael Arriola Blood tests for rout ine general physical examination Z00.00 and Type 2 diabetes mellitus without complications E11.9 Michael Arriola MD [address] [place] [id number] 08/19/2023 Michael Arriola Acute anemia D64.9 Michael Arriola MD [address] [place] [id number] 07/09/2024 Michael Arriola Type 2 diabetes mellitus without complications E11.9 Michael Arriola MD [address] [place] [id number] 11/12/2023 Michael Arriola Type 2 diabetes mellitus without complications E11.9 ; Arthritis of knee M17.10 ; Gastroesophageal reflux disease with esophagitis without hemorrhage K21.00 and History of pulmonary embolism Z86.711 Michael Arriola MD [address] [place] [id number] 09/26/2023 Michael Arriola Type 2 diabetes, controlled, with neuropathy E11.40 ; Erectile dysfunction due to arterial insufficiency N52.01 ; Gastroesophageal reflux disease with esophagitis without hemorrhage K21.00 and History of pulmonary embolism Z86.711 Michael Arriola MD [address] [place] [id number] 08/05/2023 Michael Arriola Type 2 diabetes mellitus without complications E11.9 ; Acute anemia D64.9 ; Gastroesophageal reflux disease with esophagitis without hemorrhage K21.00 and History of pulmonary embolism Z86.711 Michael Arriola MD [address] [place] [address] [id number] 07/23/2023 Michael Arriola MD [address] [place] [address] [id number] 08/23/2023 Michael Arriola MD [address] [place] [address] [id number] 08/27/2023 Michael Arriola MD [address] [place] [address] [id number] 08/27/2023 Michael Arriola MD [address] [place] [address] [id number] 08/27/2023 Michael Arriola MD [address] [place] [address] [id number] 11/14/2023 Michael Arriola MD [address] [place] [address] [id number] 05/19/2024 Michael Arriola MD [address] [place] [address] [id number] 08/30/2023 Michael Arriola MD [address] [place] [address] [id number] 09/02/2023 Michael Arriola MD [address] [place] [address] [id number] 10/04/2023 Michael Arriola MD [address] [place] [address] [id number] 11/12/2023 Michael Arriola Erectile dysfunction due to arterial insufficiency N52.01 Michael Arriola MD [address] [place], [place] [id number] 03/11/2024 Michael Arriola Type 2 diabetes mellitus [...] Z00.00) labs reviewed and discussed with patient 08/22/2023 Other elevated white blood cell count (ICD-10 - D72.828) pending additional labs 08/22/2023 UTI symptoms (ICD-10 - R39.9) 08/29/2023 Gastric reflux (ICD-10 - K21.9) wondering whether it could be diabetic gastroparesis/ is going to see dr cabrera for evaluation 08/29/2023 Type 2 diabetes, controlled, with neuropathy (ICD-10 - E11.40) has been doing well 10/14/2023 Type 2 diabetes mellitus without complications (ICD-10 - E11.9) 10/14/2023 Anemia, unspecified type (ICD-10 - D64.9) 04/21/2024 Blood tests for routine general physical examination (ICD-10 - Z00.00) 04/21/2024 Type 2 diabetes mellitus without complications (ICD-10 - E11.9) 08/19/2023 Acute anemia (ICD-10 - D64.9) 07/09/2024 Type 2 diabetes mellitus without complications (ICD-10 - E11.9) 11/12/2023 Type 2 diabetes mellitus without complications [...] in my experience this seems normal 09/26/2023 Type 2 diabetes, controlled, with neuropathy (ICD-10 - E11.40) stable, will continue current regiment/ insurance no longer covers basaglar 09/26/2023 Erectile dysfunction due to arterial insufficiency (ICD-10 - N52.01) 08/05/2023 Type 2 diabetes mellitus without complications (ICD-10 - E11.9) endocrine is starting on monjoro. but has not started yet 08/05/2023 Acute anemia (ICD-10 - D64.9) 11/12/2023 Erectile dysfunction due to arterial insufficiency (ICD-10 - N52.01) 03/11/2024 Type 2 diabetes mellitus without complications (ICD-10 - E11.9) 04/27/2024 Elevated LFTs (ICD-10 - R79.89) will continue to monitor 08/22/2023 Stool guaiac positive (ICD-10 - R19.5) iron can give a [...] him contact dr cabrera for upper endo/ ELSA WILL CALL HIS DR TO DISCUSS UPPER ENDO 04/27/2024 Gastroesophageal reflux disease with esophagitis without hemorrhage (ICD-10 - K21.00) stable, will continue current regiment 11/12/2023 History of pulmonary embolism (ICD-10 - Z86.711) is off eliquis for 2 weeks, saw pulmonary and they agreed with stopping it/ need notes from [facility] shalini quezada / will send request for records. 09/26/2023 History of pulmonary embolism (ICD-10 - Z86.711) 08/05/2023 History of pulmonary embolism (ICD-10 - Z86.711) had 2 ct angio's which were negative but shortness of breath and ddimer with was up. they have elected to treat him as pul emboli for 3 months. had negative doppler of the calf 04/27/2024 Atrial fibrillation, unspecified type (ICD-10 - I48.91) stable 04/27/2024 Colon cancer screening (ICD-10 - Z12.11) guaiac negative 04/27/2024 Depression screening (ICD-10 - Z13.31) negative screen Plan Of Treatment Pending Test Test Name Order Date XR GI SERIES 04/23/2022 US ABD 04/27/2024 UA ClnCatch+Micro w/rflx Cult 04/21/2024 Liver Panel 07/09/2024 Next Appt Details Provider Name:Michael Wong ier, 07/16/2024 09:00:00 AM, [address] [place] [address], [address] [place] [address], [phone], Provider Name:Michael Wong ier, 10/23/2024 07:30:00 AM, [address] [place] [address], [address] [place] [address], [phone], Provider Name:Michael Wong ier, 10/29/2024 07:45:00 AM, [address] [place] [address], [address] [place] [address], [phone], Provider Name:Michael Wong ier, 04/22/2025 07:15:00 AM, [address] [place] [address], [address] [place] [address], [phone], Provider Name:Michael Wong ier, 04/29/2025 02:30:00 PM, [address] [place] [address], [address], [phone], Insurance Providers Payer Name Payer Address Payer Phone Subscriber Number Group Number Insured Name Patient Relationship to Insured Coverage Start Date Coverage End Date [employer] [address] [place], [place] [phone] [id number] ELSA CHAVIRA Self - patient is the insured Medical (General) History Medical History History ICD Code 2021 had lumbar surgery with secondary infection. had to take out titanium and reoperate atrial fibrillation 2004 with ablation colonoscopy 2020.
--- OUTSIDE RECORDS SUMMARY | 2024-07-09 12:37 | XMS_ITS ---
Author Organization Michael Arriola MD Address [address] [place] [phone] Care Team Providers Care Peritoneal Dialysis Registered Nurse Name Role Phone Michael Arriola Primary Care Provider [phone] Allergies No Known Allergies REASON FOR VISIT [...] Location Date Provider Diagnosis Michael Arriola MD [address] [place] [phone] 04/27/2024 Michael Arriola Type 2 diabetes mellitus [...] Pending Test Test Name Order Date US [facility] 04/27/2024 Liver Panel 04/27/2024 Next Appt Details Provider Name:Michael jain, 07/16/2024 09:00:00 AM, [address] [place] [address], Suite [facility], [place], [place], [phone], Provider Name:Michael jain, 10/23/2024 07:30:00 AM, [address] [place] [address], Suite [facility], [place], [place], [phone], Provider Name:Michael jain, 10/29/2024 07:45:00 AM, [address] [place] [address], Suite [facility], [place], [place], [phone], Provider Name:Michael jain, 04/22/2025 07:15:00 AM, [address] [place] [address], Suite [facility], [place], [place], [phone], Provider Name:Michael laughlinr, 04/29/2025 02:30:00 PM, [address] [place] [address], Suite [facility], [place], [phone], Progress Notes * ELSA LEUNGDOB: 0 (53 yo M)Acc No.[id number]:04/27/2024 Progress Notes Patient:?ELSA LEUNG Provider:?Michael Arriola MD :1970???Age:53 Y???Sex:Male Saul e:04/27/2024 Address:[address] [place], [place] [phone] Subjective: * Chief Complaints: * ???ANNUAL EXAM * HPI: ???Depression Screening:?PHQ-9?Little interest or pleasure [...] or any lesions of concern.?Denies?Photosensitivity.?Rash?denies.?Neurologic:?Dizziness?denies.?Fainting?denies.?Headache?denies.? * Medical History:? * Surgical History:? * Hospitalization/Major Diagno stic Procedure:? * Family History:?Father: dece ased 64 yrs.?Mother: 71 yrs.?1 brother(s) , 1 sister(s) . 1 son(s) . .? Father- [place] Mother Lung Cancer. * Social History:?Tobacco Use:?Tobacco [...] Pets: 2 dogs. Travel outside of the [place]: no. ???smokes a cigar 6 times a year. * Medications:?TakingMounjaro 5 MG/0.5ML Solution Pen-injector `10 mg Subcutaneous BD Pen Needle Micro U/F 32G X 6 MM Miscellaneous as directed 3 times daily Taking Mounjaro 5 MG/0.5ML Solution Pen-injector `10 mg Subcutaneous Taking BD Pen Needle Micro U/F 32G X 6 MM Miscellaneous as directed 3 times daily Not-Taking/PRNPantoprazole Sodium 40 MG Tablet Delayed Release 1 tablet Orally Once a day NovoLOG 100 UNIT/ML Solution 10 to 20 units Injection twice a day NovoLOG FlexPen 100 UNIT/ML Solution Pen-injector 10 to 20 units sq twice a day oxyCODONE HCl 5 MG Tablet 1 tablet as needed Orally every 6 hrs Not-Taking/PRN Pantoprazole Sodium 40 MG Tablet Delayed Release 1 tablet Orally Once a day Not-Taking/PRN NovoLOG 100 UNIT/ML Solution 10 to 20 units Injection twice a day Not-Taking/PRN NovoLOG FlexPen 100 UNIT/ML Solution Pen-injector 10 to 20 units sq twice a day Not-Taking/PRN oxyCODONE HCl 5 MG Tablet 1 tablet as needed Orally every 6 hrs DiscontinuedLevemir FlexPen 100 UNIT/ML Solution Pen-injector as directed Subcutaneous 60 units daily Basaglar KwikPen 100 UNIT/mL, 3 mL pen Solution Pen-injector as directed Subcutaneous 60 units daily Lantus SoloStar 100 UNIT/ML Solution Pen-injector as directed Subcutaneous 60 units daily Discontinued Levemir FlexPen 100 UNIT/ML Solution Pen-injector as directed Subcutaneous 60 units daily Discontinued Basaglar KwikPen 100 UNIT/mL, 3 mL pen Solution Pen-injector as directed Subcutaneous 60 units daily Discontinued Lantus SoloStar 100 UNIT/ML Solution Pen-injector as directed Subcutaneous 60 units daily UnknownAtorvastatin Calcium 80 MG Tablet TAKE 1 TABLET BY MOUTH EVERY DAY Oral Once a day FreeStyle Ray 2 Sensor - Miscellaneous as directed every 14 janessa Tadalafil 10 MG Tablet 1 or 2 tabs Orally Once a day as needed Eliquis 5 MG Tablet 1 tablet Orally Twice a day Basaglar KwikPen 100 UNIT/ML Solution Pen-injector as directed Subcutaneous 60 units twice a saul Lantus SoloStar 100 UNIT/ML Solution Pen- injector as directed Subcutaneous 60 units twice daily Unknown Atorvastatin Calcium 80 MG Tablet TAKE 1 TABLET BY MOUTH EVERY DAY Oral Once a day Unknown FreeStyle Ray 2 Sensor - Miscellaneous as directed every 14 janessa Unknown Tadalafil 10 MG Tablet 1 or 2 tabs Orally Once a day as needed Unknown Eliquis 5 MG Tablet 1 tablet Orally Twice a day Unknown Basaglar KwikPen 100 UNIT/ML Solution Pen-injector as directed Subcutaneous 60 units twice a saul Unknown Lantus SoloStar 100 UNIT/ML Solution Pen-injector as directed Subcutaneous 60 units twice daily * Allergies:?N.K.D.A.yes[Aller gies Verified] Objective: * Vitals:?Ht: 73, Wt: 277, BMI :36.54, BP:108/64, Wt-k.65. weight is up 12 pounds since 11-12-23. * ???Past Orders: ???Lab:Comprehensive Me[facility]rin. P trina Fast (Order Date - 04/21/2024) [...] mg/dL ?Urine Blood Negative Negative - ?Specific [place] - Urine 1.010 1.005-1.025 - ?Urine Protein [...] day, 30 days, 30Tablet, Refills 12.?? * Procedure Codes:? * Preventive Medicine:? ??Counseling:?Care goal follow-up plan:?Counseling for abnormal BMI provided?Yes,?Above Normal BMI Follow-up?Giving encouragement to exercise.? ??Diabetes Care Plan:?Patient Lifestyle Goals?Needs to maintain diet control.?Treatment Goals?A1C< 7.?Barriers ?No specific barriers, doing well.?Self-Managment Plan?Increase light exercise to 3 times a week for 30 minutes.?Expected Outcome maintaining stable blood sugar levels within a target range.? * * Sign off status: Completed true * Provider:?Michael Arriola MD Date:?0 04/27/2024 Generated for Gina howard/Mallika/eTransmitting on:?07/09/2024 12:37 PM EDT History and Physical Notes * HPI (History [...]
--- OUTSIDE RECORDS SUMMARY | 2024-07-09 12:37 | XMS_ITS ---
Author Organization Michael Arriola MD Address [address] [place] [phone] Care Team Providers Care Shadow Graph Weight Operator Name Role Phone Michael Arriola Primary Care Provider [phone] Results Component Value Reference Range Notes Liver Panel (Not yet reviewe d by provider) Interpretation: Performing Lab:[facility], [address] [place] [id number] Notes/Report: Bilirubin Total 0.6 0.0-1.0 mg/dL Bilirubin Direct 0.2 0.0-0.5 mg/dL Aspartate Amino Transferase 36 5-37 U/L Alanine Aminotransferase 53 0-40 U/L Total Protein 6.7 6.5-8.0 g/dL Albumin Level 4.0 3.5-5.0 g/dL Alkaline Phosphatase 88 39-117 U/L REASON FOR VISIT LIVER PANEL Encounters Encounter Location Date Provider Diagnosis Michael Arriola MD [address] [place] [address] Drive [address] [place] [phone] 07/09/2024 Michael Arriola Type 2 diabetes mellitus without complications E11.9 Assessments Encounter Date Diagnosis (ICD Code) Assessment Notes Treatment Notes Treatment Clinical Notes Section Notes 07/09/2024 Type 2 diabetes mellitus without complications (ICD-10 - E11.9) Plan Of Treatment Pending Test Test Name Order Date Liver Panel 07/09/2024 Next Appt Details Provider Name:Michael jain, 07/16/2024 09:00:00 AM, [address] [place] [address], Suite [facility], [place], [place], [phone], Provider Name:Michael jain, 10/23/2024 07:30:00 AM, [address], [address], [place], [place], [phone], Provider Name:Michael Wong qianr, 10/29/2024 07:45:00 AM, [address], [address], [place], [phone], Provider Name:Michael Wong ier, 04/22/2025 07:15:00 AM, [address], [address], [place], [phone], Provider Name:Michael Wong ier, 04/29/2025 02:30:00 PM, [address], [address] [facility], [place], [phone], Progress Notes * ELSA LEUNGDOB: 0 (53 yo M)Acc No.[id number]:07/09/2024 Progress Note Patient:?ELSA LEUNG Provider:?Michael Arriola MD :1970???Age:53 Y???Sex:Male Saul e:07/09/2024 Address:[address] [place], [place] [phone] Subjective: * Chief Complaints: * ???1. LIVER PANEL. * Medical History:? Objective: * Vitals:? Assessment: * Assessment: 1.?Type 2 diabetes mellitus without complications - E11.9 (Primary)??? Plan: * Treatment: * Procedure Codes:?78562 VENIP UNCT, ROUTINE* * * The named appointment provid er may or may not be the originator of this progress note, and it is not deemed complete until electronically signed by the appointment provider. Sign off status: Pending * Provider:?Michael Arriola MD Date:?0 07/09/2024 Generated for Gina howard/Mallika/eTransmitting on:?07/09/2024 12:37 PM EDT
== END 2024-07-09 10:41 | disposition home or self-care (01) ==
LOC: HO.LNP 10:40
PROVIDERS: Visit Provider Internal Medicine
DX: E11.9 Type 2 diabetes mellitus without complications (principal)
CPT/HCPCS: 80076

== ENCOUNTER 2024-10-23 10:12 | Outpatient (REF) | payer BC, SELFPAY ==
--- OUTSIDE RECORDS SUMMARY | 2024-10-23 10:30 | XMS_ITS | Patient Health Record ---
Author Organization Michael Arriola MD Address [address] [place], [place] [phone] Care Team Providers Care Orange Peel Operator Name Role Phone Michael Arriola Primary Care Provider Allergies No Known Allergies Results Component Value Reference Range Notes Hemoglobin A1c Reviewed date:08/11/2024 01:37:38 PM Interpretation: Performing Lab: Notes/Report: Hemoglobin A1c 7.8 UA CC w/rflx Micro + Cult Reviewed date:04/21/2024 12:50:29 PM Interpretation: Performing Lab:[facility], [address] [place] [phone] Notes/Report: [id number] 0700 Urine, Clean Catch Color Urine Yellow Appearance Urine Clear PH 6.5 5.0-9.0 Glucose Urine UA Negative Negative mg/dL Urine Blood Negative Negative Specific [place] - Urine 1.010 1.005-1.025 Urine Protein Negative Neg-Trace mg/dL Urine Ketones Negative Negative mg/dL Nitrite Urine Negative Negative Leukocyte Esterase Urine Negative Negative Complete Blood Count Auto Di ff Reviewed date:04/21/2024 12:48:58 PM Interpretation: Performing Lab:[facility], [address] [place] [phone] Notes/Report: White Blood Count 6.1 4.8-10.8 X10*3/uL [...] NRBC Abs Auto 0.000 0.0-0.012 X10*3/uL Comprehensive [place]. Panel Fa st Reviewed date:04/21/2024 12:49:57 PM Interpretation: Performing Lab:[facility], [address] [place] [phone] Notes/Report: Sodium 138 135-145 mmol/L Potassium 3.7 [...] Panel Reviewed date:04/21/2024 12:48:41 PM Interpretation: Performing Lab:[address] [phone] Notes/Report: Triglycerides 117 <150 mg/dL Desirable Triglyceride: [...] (Free>4and<10) Reviewed date:04/21/2024 12:50:08 PM Interpretation: Performing Lab:[address] [phone] Notes/Report: PSA,Total (Free>4and<10) 0.15 0.00-4.00 ng/mL A [...] Random Reviewed date:04/21/2024 12:49:06 PM Interpretation: Performing Lab:[facility], [address] [place] [phone] Notes/Report: Creatinine Urine 103.90 Microalbumin Urine 26.0 Microalbum/Creatinine Ratio Ur 25.0 <30 ug/mg cr Albumin/Creatinine Ratio Reference Ranges: Normal: < 30 ug/mg creatinine Microalbuminuria: 30 - 300 ug/mg creatinine Clinical Albuminuria: > 300 ug/mg creatinine Hemoglobin A1c Reviewed date:04/21/2024 12:49:18 PM Interpretation: Performing Lab:[facility], [address] [place] [phone] Notes/Report: Hemoglobin A1c % 7.5 <6.0 % [...] average glucose, using the formula of the S7F-Fpknrei Average Glucose study (ADAG), Diabetes Care, Vol.31,#8, 2007 US abdomen complete Reviewed date:05/12/2024 12:40:56 PM Interpretation: Performing Lab: Notes/Report: [facility] [address] [place] [address] [place] [address] Ultrasound Report Signed Patient: Elsa Chavira MR#: [id number] : 1970 Acct:[id number] Age/Sex: 53 / M ADM Date: 05/11/24 Loc: HO.HMGCX Attending Dr: Michael Arriola MD Ordering Physician: Michael Arriola MD Date of Service: 05/11/24 Procedure(s): US abdomen complete Accession Number(s): [id number] cc: Michael Arriola MD CLINICAL HISTORY: ELEVATED [...] 05/11/24 1041 DD/ 1040 TD/TT: 05/11/24 1040 Diesel Powerplant Supervisor: [facility] [address] [place] [address] [place] [address] Ultrasound Report Signed Patient: Miles Chavira MR#: [id number] : 1970 Acct:[id number] Age/Sex: 53 / M ADM Date: 05/11/24 Loc: .HMGCX Attending Dr: Michael Arriola MD Ordering Physician: Michael Arriola MD Date of Service: 05/11/24 Procedure(s): US abdomen complete Accession Number(s): [id number] cc: Michael Arriola MD CLINICAL HISTORY: ELEVATED [...] 05/11/24 1041 DD/ 1040 TD/TT: 05/11/24 1040 Diesel Powerplant Supervisor: Liver Panel Reviewed date:07/09/2024 06:14:28 PM Interpretation: Performing Lab:[address] [phone] Notes/Report: Bilirubin Total 0.6 0.0-1.0 mg/dL Bilirubin Direct 0.2 0.0-0.5 mg/dL Aspartate Amino Transferase 36 5-37 U/L Alanine Aminotransferase 53 0-40 U/L Total Protein 6.7 6.5-8.0 g/dL Albumin Level 4.0 3.5-5.0 g/dL Alkaline Phosphatase 88 39-117 U/L Glucose, finger stick Reviewed date:08/11/2024 01:31:12 PM Interpretation: Performing Lab: Notes/Report: Value 138 Hold Gold (Not yet reviewed by provider) Interpretation: Performing Lab:[address] [phone] Notes/Report: Hold Gold See Note Specimen held untested for 24 hours; Call to request Chemistry testing. Reason For Referral Reason left knee pain Diagnosis 1 Knee pain (M25.569) Referral Organization Michael Arriola MD Referring Provider First Name Michael Referring Provider Last Name Zeinab Referring Provider Speciality Internal M edicine Referred Provider Unknown, Provider Referred Provider Specialty Orthopedic S urgery General Notes Kathleen Peoples 0 08/11/2024 02:05:04 PM >patient wants to go to a provider on [place]. Patient will get back to me with name of provider, fax# and NPI#, Kathleen Peoples 08/17/2024 02:06:34 PM >tried calling patient, not able to leave a message. Referral marked pending, Kathleen Peoples 08/17/2024 02:59:12 PM >appt is with Dr. Mychal Yates at [address] phone fax [phone] for insurance referral , patient is aware of his appt Referral Priority Routine Referral Appointment Date 10/07/2024 Medications Medication SIG (Take, Route, Frequency, Duration) Notes Start Date End Date Status FreeStyle Ray 2 Sensor - as directed every 14 janessa for 60 days 02/27/2022 Active Mounjaro 5 MG/0.5ML `10 mg Subcutaneous Active Tadalafil 10 MG 1 or 2 tabs Orally O nce a day as needed for 30 day(s) 09/26/2023 Not-Taking Basaglar KwikPen 100 UNIT/ML as directed Subcutaneous 60 units twice a siva for 90 days Not-Taking Lantus SoloStar 100 UNIT/ML as directed Subcutaneous 60 units twice daily for 90 days 09/27/2023 Not-Taking BD Pen Needle Micro U/F 32G X 6 MM as directed 3 times daily for 90 days 11/20/2022 Active NovoLOG 100 UNIT/ML 10 to 20 units Injec tion twice a day Active Pantoprazole Sodium 40 MG 1 tablet Orally Once a day for 30 days Not-Taking Atorvastatin Calcium 80 MG TAKE 1 TABLET BY MOUTH EVERY DAY Oral Once a day for 90 days 12/08/2021 Not-Taking Eliquis 5 MG 1 tablet Orally Twic e a day for 30 day(s) 09/26/2023 Not-Taking NovoLOG FlexPen 100 UNIT/ML 10 to 20 units sq twice a day 11/20/2022 Not-Taking oxyCODONE HCl 5 MG 1 tablet as needed Orally every 6 hrs Not-Taking Immunizations Vaccine Route Administration Date Status Comme [...] Problem Status W/U Status Risk Notes Problem 41892857 Type 2 diabetes mellitus without complications (E11.9) Active confirmed Problem 069684040 Other elevated white blood cell count (D72.828) Active confirmed Problem 706797576807666 Erectile dysfunction due to arterial insufficiency (N52.01) Active confirmed Problem 145536673 Lumbar disc dise ase (M51.9) Active confirmed Problem 906760666 Gastroesophageal reflux disease without esophagitis (K21.9) Active confirmed Problem Lipoprotein deficiency disorder (742901088) Low HDL (under 40) (E78.6) Active confirmed Problem History of pulmonary embolus (501256865) History of pulmonary embolism (Z86.711) Active confirmed Problem 46369866 Type 2 diabetes, controlled, with neuropathy (E11.40) Active confirmed Problem 15227078 Atrial fibrillation, unspecified type (I48.91) Active confirmed Problem 78558412 ADALBERTO (obstructive sleep apnea) (G47.33) Active confirmed Problem 241509541 Arthritis of kne e (M17.10) Active confirmed Problem 825925052 Gastroesophageal reflux disease with esophagitis without hemorrhage (K21.00) Active confirmed Problem 984630108 Gastric reflux (K21.9) Active confirmed Vital Signs Blood pressure diastolic 76 mm Hg 08/11/2024 dipika ght is down 7 pounds since 04-27-24 Height 73 in 08/11/2024 weight is down 7 pounds since 04-27-24 Blood pressure systolic 142 mm Hg 08/11/2024 weig ht is down 7 pounds since 04-27-24 Weight 270 lbs 08/11/2024 weight is down 7 pounds since 04-27-24 BMI 35.62 kg/m2 08/11/2024 weight is down 7 pounds since 04-27-24 Encounters Encounter Location Date Provider Diagnosis Michael Arriola MD [address] [place] [id number] 04/27/2024 Michael Arriola Type 2 diabetes mellitus without complications E11.9 ; Annual physical exam Z00.00 ; Elevated LFTs R79.89 ; Gastroesophageal reflux disease with esophagitis without hemorrhage K21.00 ; Atrial fibrillation, unspecified type I48.91 ; Colon cancer screening Z12.11 and Depression screening Z13.31 Michael Arriola MD [address] [id number] 04/21/2024 Michael Arriola Blood tests for rout ine general physical examination Z00.00 and Type 2 diabetes mellitus without complications E11.9 Michael Arriola MD [address] [place] [id number] 10/23/2024 Michael Arriola Type 2 diabetes mellitus without complications E11.9 and Low HDL (under 40) E78.6 Michael Arriola MD [address] [place] [id number] 07/09/2024 Michael Arriola Type 2 diabetes mellitus without complications E11.9 Michael Arriola MD [address] [id number] 11/12/2023 Michael Arriola Type 2 diabetes mellitus without complications E11.9 ; Arthritis of knee M17.10 ; Gastroesophageal reflux disease with esophagitis without hemorrhage K21.00 and History of pulmonary embolism Z86.711 Michael Arriola MD [address] [place] [id number] 08/11/2024 Michael Arriola Type 2 diabetes mellitus without complications E11.9 and Knee pain M25.569 Michael Arriola MD [address] [place] [id number] 11/14/2023 Michael Arriola MD [address] [place] [id number] 05/19/2024 Michael Arriola MD [address] [place] [id number] 11/12/2023 Michael Arriola Erectile dysfunction due to arterial insufficiency N52.01 Michael Arriola MD [address] [place] [id number] 03/11/2024 Michael Arriola Type 2 diabetes mellitus [...] Z00.00) labs reviewed and discussed with patient 04/21/2024 Blood tests for routine general physical examination (ICD-10 - Z00.00) 04/21/2024 Type 2 diabetes mellitus without complications (ICD-10 - E11.9) 10/23/2024 Type 2 diabetes mellitus without complications (ICD-10 - E11.9) 07/09/2024 Type 2 diabetes mellitus without complications [...] that in my experience this seems normal 08/11/2024 Type 2 diabetes mellitus without complications (ICD-10 - E11.9) 08/11/2024 Knee pain (ICD-10 - M25.569) [place] [facility] [place] 11/12/2023 Erectile dysfunction due to arterial insufficiency (ICD-10 - N52.01) 03/11/2024 Type 2 diabetes mellitus without complications (ICD-10 - E11.9) 04/27/2024 Elevated LFTs (ICD-10 - R79.89) will continue to monitor 10/23/2024 Low HDL (under 40) (ICD-10 - E78.6) 11/12/2023 Gastroesophageal reflux disease with esophagitis without hemorrhage (ICD-10 - K21.00) going to see dr irby 04/27/2024 Gastroesophageal reflux disease with esophagitis without hemorrhage (ICD-10 - K21.00) stable, will continue current regiment 11/12/2023 History of pulmonary embolism (ICD-10 - Z86.711) is off eliquis for 2 weeks, saw pulmonary and they agreed with stopping it/ need [facility] from [facility] shalini quezada / will send request for records. 04/27/2024 Atrial fibrillation, unspecified type (ICD-10 - I48.91) stable 04/27/2024 Colon cancer screening (ICD-10 - Z12.11) guaiac negative 04/27/2024 Depression screening (ICD-10 - Z13.31) negative screen Plan Of Treatment Pending Test Test Name Order Date XR GI SERIES 04/23/2022 US ABD 04/27/2024 Glucose Fasting 10/23/2024 Lipid Panel with Reflex 10/23/2024 Hold Gold 10/23/2024 Hemoglobin A1c 10/23/2024 Next Appt Details Provider Name:Michael jain, 10/29/2024 07:45:00 AM, [address] [place] [address] Drive, [address], [place], [place], [phone], Provider Name:Michael jain, 04/22/2025 07:15:00 AM, [address] [place] [address] Drive, [address], [place], [place], [phone], Provider Name:Michael Wong ier, 04/29/2025 02:30:00 PM, [address], [address], [place], [place], [phone], Insurance Providers Payer Name Payer Address Payer Phone Subscriber Number Group Number Insured Name Patient Relationship to Insured Coverage Start Date Coverage End Date [employer] [facility] [address] [place], [place] [id number] [phone] [id number] ELSA CHAVIRA Self - patient is the insured Medical (General) History Medical History History ICD Code 2021 had lumbar surgery with secondary infection. had to take out titanium and reoperate atrial fibrillation 2004 with ablation colonoscopy 2020.
--- OUTSIDE RECORDS SUMMARY | 2024-10-23 10:30 | XMS_ITS | Clinical Summary ---
Author Organization [facility] Address [address] [facility] [address] [place] [phone] Phone Care Team Providers Care Volunteer Services Director Name Role Phone Michael Arriola MD Primary Care Provider Allergies No known active allergies Medications atorvastatin (LIPITOR) 80 MG tablet Take 80 mg by mouth daily. 024 Active insulin lispro (ADMELOG, HUMALOG) 100 unit/mL injection pen Inject 10-15 Units under the skin 2 (two) times a day with meals. Active BD ULTRA-FINE MICRO PEN NEEDLE 32 gauge x 1/4 NdleIndications :Type 2 diabetes mellitus with peripheral neuropathy Inject 1 each as directed 3 (three) times a day. 300 each 1 024 Active tirzepatide (MOUNJARO) 10 mg/0.5 mL PnIj subcutaneous penIndications: Type 2 diabetes mellitus with peripheral neuropathy Inject 0.5 mL (10 mg total) under the skin every 7 days. 6 mL 1 025 Active Additional Information Patient not taking.Reported on 07/13/2024 FREESTYLE SIN 3 PLUS SENSOR DeviIndications :Type 2 diabetes mellitus with peripheral neuropathy 1 each by Miscellaneous route every 15 (fifteen) days. 6 each 3 025 Active LANTUS SOLOSTAR U-100 INSULIN 100 unit/mL (3 mL) InPn injection penIndications: Type 2 diabetes mellitus with peripheral neuropathy 60 units, subcutaneously, bid AC or as directed 45 mL 5 025 Active blood-glucose sensor DeviIndications :Type 2 diabetes mellitus with peripheral neuropathy To monitor blood glucose, to change the sensor every 14 days Freestyle sin 3 sensor 6 each 3 024 2024 Discontinued LANTUS SOLOSTAR U-100 INSULIN 100 unit/mL (3 mL) InPn injection penIndications: Type 2 diabetes mellitus with peripheral neuropathy Inject 60 Units under the skin 2 (two) times a day. 45 mL 1 025 2024 Discontinued Active Problems Problem Noted Date Diagnosed Date Obesity 07/13/2024 Type 2 diabetes mellitus with peripheral neuropa thy 05/27/2023 Assessment & Plan (07/13/2024 5:06 PM EDT): Control suboptimal based on CGM download. Feels pain is contributing to both highs/lows. Has been off of mounjaro due to diarrhea which started after flu- like illness in May, is just getting back on. If has recurrent diarrhea, ? Cut back to 7.5 mg dose? Continue to work on eating healthy & keeping active. To call or send in log with problems with glucose control. Up to date with LOYAL3o. Will call for recent labs. ? Recent umalb/creat? BP under good control. Assessment & Plan (03/16/2024 10:45 AM EST): Control is reasonable based upon the patient's freestyle sin 2 sensor download. No frequent or severe hypoglycemia. Will up grade his freestyle sin 2 sensor to the freestyle sin 3 sensor to allow for continuous monitoring without having to scan to get the readings. Will increase his mounjaro to see if this helps with losing more weight and further improve his glucose levels. Up to date with opho. Labs were done with his PCP Assessment & Plan (11/26/2023 11:30 AM EDT): Control excellent with excessive, mild hypoglycemia w/ delay in food/activity. Advised to cut back on lantus from 30 to 20 units daily & adjust further if continues to have frequent lows or goes too high with this adjustment. Continue to work on eating healthy & keeping active. To call or send in log with problems with glucose control. Up to date with LOYAL3o. Will repeat umalb/creat. BP under good control. Assessment & Plan (09/02/2023 9:00 AM EDT): Control is reasonable based upon the patient's freestyle lire 2 sensor download. No frequent or severe hypoglycemia. He has not been great with scanning his sensor more than once a day to capture more of his glucose data. He is going to work on checking his levels more. Discussed talking with his PCP for medication for the numbness in his arm. Also needs to discuss the use of eliquis with his PCP should not have just stopped it. Continue to work on eating healthy and being active. To call or message with any issues managing his glucose levels. Up to date with ophtho. Labs were done with PCP. Assessment & Plan (05/27/2023 4:35 PM EST): 52 y.o. man with Type 2 diabetes, dx ~ 13 yrs ago. He has peripheral neuropathy. His control has deteriorated w/ intercurrent illnesses, & had caused delay in his TKR, but hs since improved. No frequent or severe hypoglycemia. Reviewed appropriate timing of rapid acting analog in relation to meals. Reviewed site rotation, effect of site on insulin absorption. Advised to give prandial insulin 15 min AC, to not inject through clothing & to give lower in thighs. Discussed use of GLP1 agonists - risks/benefits. Will start mounjaro if covered/affordable, will likely hold off on starting until after upcoming surgery as control has been adequate & would need to hold for procedure due to concerns @ delayed gastric emptying. He has not tolerated metformin. Could consider a trial starting @ low dose, taking with food, which he was not doing & gradually titrating up, however hypoxemia from untreated sleep apnea is a risk for lactic acidosis, so will not trial that at present. Continue to work on eating healthy & keeping active. To call or send in log with problems with glucose control. Up to date with ophtho. ? Recent urine microalbumin/creatinine ratio? Will call for additional labs. 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 Assessment & Plan (05/27/2023 4:35 PM EST): To rx with OTC antifungal. Long-term current use of inj ectable noninsulin antidiabetic medication Assessment & Plan (03/16/2024 10:31 AM EST): Will increase his mounjaro dosing to help further improve his glucose levels Encounters Date Type Department Care Team Description 10/12/2024 Telephone [facility] [address] [place] [place] [address] Charlotte Francisco PA-C Appointment 10/07/2024 9:00 AM EDT Procedure visit [facility] Department of Orthopaedic Surgery, Arthroplasty Service [address] [facility], 3rd Floor, [address] [place] [address] Bertha Ashley PA-C History of left knee replacement (Primary Dx) 10/07/2024 7:51 AM EDT - 10/07/2024 11:59 PM EDT Hospital Encounter [facility] Imaging - Xray, [place] [address] [facility], 3rd [place] [address] Bertha Ashley PA-C Discharge Disposition: Home or Self Care 10/07/2024 Refill [facility] Endocr[facility]ology [place] [address] [place] [phone] Charlotte Francisco PA-C Medication Refill 09/29/20[facility] [place] [address] [place] [phone] Charlotte Francisco PA-C Med Change Request 09/22/2024 Orders Only [facility] Department of Orthopaedic Surgery, Arthroplasty Service [address] [facility], 3rd Floor, [address] [place] [address] Bertha Ashley PA-C Knee instability (Primary Dx) from Last 3 Months Immunizations Immunization Administration Dates Next Due COVID-19 (Pre-01/21) Pfizer Vaccine, mRNA, PF 03/14/2021,06/25/2020,06/04/2020 Social History Tobacco Use Types Packs/Day Years Used Date Smoking Tobacco: Some Days Cigars Smokeless Tobacco: Never Tobacco Cessation:Ready to Q uit: Not Asked; Counseling Given: Not Answered Comments:2-3 cigars yearly Alcohol Use Standard Drinks/Week Comments Yes 1 (1 standard drink = 0.6 oz pur e alcohol) Education Answer Date Recorded Are you interested in more education? Not on conner e 02/19/2023 Are you concerned about learning? Not on file 02/19/2023 No 02/19/2023 No 02/19/2023 Digital Access Answer Date Recorded No 02/19/2023 No 02/19/2023 Reliable internet access at home? Not on file 02/19/2023 Device with a working camera? Not on file Sex and Gender Information Value Date Recorded Sex Assigned at Male 08/17/2024 2:35 PM EDT Legal Sex Male 11:17 AM EDT Gender Identity Male 08/17/2024 2:35 PM EDT Sexual Orientation Straight 08/17/2024 2: 35 PM EDT Last Filed Vital Signs Vital Sign Reading Time Taken Comments Blood Pressure 110/60 07/13/2024 10:24 AM EDT Pulse 78 07/13/2024 10:24 AM EDT Temperature 36.1 C (96.9 F) 03/16/2024 7:59 AM EST Respiratory Rate 20 11/26/2023 10:51 AM EDT Oxygen Saturation 98% 07/13/2024 10:24 AM EDT Inhaled Oxygen Concentration - - Weight 120.7 kg (266 lb) 10/07/2024 8:44 AM EDT Height 185.4 cm (6' 1 ) 10/07/2024 8:44 AM EDT Body Mass Index 35.09 10/07/2024 8:44 AM EDT Plan of Treatment Upcoming Encounters Date Type Department Care Team (Late st Contact Info) Description 02/02/2025 8:20 AM EST Office Visit [facility] Endocrinology [address] [place] [phone] Luci Rand MD [address] [place] [phone] [email or web address] Health Maintenance Due Date Last Done Comments Adult Td,Tdap Booster 1970 HEMOGLOBIN A1C 1969 DEPRESSION SCREENING 1981 HEPATITIS C SCREENING 10/29/1987 HIV ONE-TIME SCREENING (18-6 5 YEARS) 10/29/1987 PNEUMOCOCCAL VACCINES (50+ years) (1 of 2 - PCV) 1988 COLOGUARD 2014 COLONOSCOPY 2014 COLORECTAL CANCER SCREENING 2014 FIT TEST 2014 FOBT 2014 SIGMOIDOSCOPY 2014 VIRTUAL COLONOSCOPY 2014 ZOSTER VACCINES (1 of 2) 10/29/2019 DIABETIC EYE EXAM 05/27/2023 URINE MICROALBUMIN/CREATININ E RATIO 05/27/2023 COVID-19 VACCINE (4 - 2023-2 5 season) 2023 03/14/2021, 06/25/2020, 06/04/2020 BLOOD PRESSURE 01/12/2025 07/13/2024 SMOKING Hx and SMOKELESS TOBACCO SCREENING 03/16/2025 03/16/2024 HEPATITIS A VACCINES Aged Out No long er eligible based on patient's age to complete this topic HIB VACCINES Aged Out No longer eligi ble based on patient's age to complete this topic MENINGOCOCCAL VACCINES (ACWY) Aged Out No longer eligible based on patient's age to complete this topic MENINGOCOCCAL VACCINES (B) Aged Out N o longer eligible based on patient's age to complete this topic Medical Devices Not on file Procedures Procedure Name Priority Date/Time Associated Diagnosis Comments SEDIMENTATION RATE (ESR) Routine 10/07/2024 9:28 AM EDT History of left knee replacement C-REACTIVE PROTEIN Routine 10/07/2024 9: 28 AM EDT History of left knee replacement XR KNEE 4 OR MORE VIEWS (LEFT) Routine 10/07/2024 8:04 AM EDT Knee instability from Last 3 Months Results * Sedimentation rate (ESR) (10/07/2024 9:28 AM EDT) ESR 4 0 - 19 mm/h [facility] Comment:Specimen was process ed >6 hours from time of collection. Results may be falsely decreased. Recommend repeat with fresh sample, particularly for borderline results. 10/07/2024 9:28 AM EDT 10/07/2024 3:53 PM EDT Bertha Ashley PA-C LAB BLOOD ORDERABLES Final Re sult Performing Organization Address [facility] Co de Phone Number [address] [phone] * C-Reactive Protein (10/07/2024 9:28 AM EDT) C REACTIVE PROTEIN 3.1 <8.0 mg/L [facility] Comment:This reference range is for the evaluation of inflammation. Order High Sensitivity CRP for cardiac risk status evaluation. 10/07/2024 9:28 AM EDT 10/07/2024 3:53 PM EDT Bertha Ashley PA-C LAB BLOOD ORDERABLES Final Re sult Performing Organization Address [facility] Co de Phone Number [address] [address] * XR KNEE 4 OR MORE VIEWS (LEFT) (10/07/2024 8:04 AM EDT) Anatomical Region Laterality Modality Knee Left Computed Radiogr aphy 10/07/2024 8:11 AM EDT Impressions 10/07/2024 8:11 AM EDT Left total knee arthroplasty, no complication Narrative 10/07/2024 8:11 AM EDT XR KNEE 4 OR MORE VIEWS (LEFT) Referring clinician's provided indication for this examination in Epic: * Knee instability COMPARISON: FINDINGS: Left Knee: Total knee arthroplasty. Hardware is intact and in anatomic position. No periprosthetic lucency or fracture. Soft tissue swelling and small joint effusion. Frontal evaluation of the right knee demonstrates degenerative changes with medial joint space narrowing. Procedure Note Danny Astudillo MD - 10/07/2024 XR KNEE 4 OR MORE VIEWS (LEFT) Referring clinician's provided indication for this examination in Epic: *Knee instability COMPARISON: FINDINGS: Left Knee: Total knee arthroplasty. Hardware is intact and in anatomicposition. No periprosthetic lucency or fracture. Soft tissue swelling andsmall joint effusion. Frontal evaluation of the right knee demonstrates degenerative changeswith medial joint space narrowing. IMPRESSION: Left total knee arthroplasty, no complication Bertha Ashley PA-C IMG XR LOWER EXTREMITY Final Result from Last 3 Months Insurance [facility] Care Teams Volunteer Services Director Relationship Specialty Start Date End Date Michael Arriola MD [address] [place] [address] [place] [address] PCP - General Internal Medicine 01/11/23 Additional Source Comments The information contained in this document represents components of the legal health record. It is not the complete legal health record.[facility]
[2024-10-23 10:33] LABS: Hemoglobin A1C 243.4091 umol/L; Total Hemoglobin (HGBA1C) 3791.1859 umol/L
[2024-10-23 10:46] LABS: Cholesterol 179 mg/dL (<200); HDL Cholesterol 37 mg/dL (>40); Triglycerides 144 mg/dL (<150)
[2024-10-23 11:33] LABS: Reflex LDLD? No
== END 2024-10-23 10:13 | disposition home or self-care (01) ==
LOC: HO.LNP 10:12
PROVIDERS: Visit Provider Internal Medicine
DX: E11.9 Type 2 diabetes mellitus without complications (principal); E78.6 Lipoprotein deficiency
CPT/HCPCS: 80061; 82947; 83036

== ENCOUNTER 2025-01-29 10:42 | Outpatient (REF) | payer BC, SELFPAY ==
--- OUTSIDE RECORDS SUMMARY | 2024-07-09 04:30 | XMS_ITS ---
Author Organization Michael Arriola MD Address [address] [place] [phone] Care Team Providers [facility] Director Name Role Phone Michael Arriola Primary Care Provider Results Component Value Reference Range Notes Liver Panel Reviewed date:07/09/2024 06:14:28 PM Interpretation: Performing Lab:[facility], [address] [place] [id number] Notes/Report: Bilirubin Total 0.6 0.0-1.0 mg/dL Bilirubin Direct 0.2 0.0-0.5 mg/dL Aspartate Amino Transferase 36 5-37 U/L Alanine Aminotransferase 53 0-40 U/L Total Protein 6.7 6.5-8.0 g/dL Albumin Level 4.0 3.5-5.0 g/dL Alkaline Phosphatase 88 39-117 U/L REASON FOR VISIT LIVER PANEL Encounters Encounter Location Date Provider Diagnosis Michael Arriola MD [address] [place] [address] [place] [phone] 07/09/2024 Michael Arriola Type 2 diabetes mellitus without complications E11.9 Assessments Encounter Date Diagnosis (ICD Code) Assessment Notes Treatment Notes Treatment Clinical Notes Section Notes 07/09/2024 Type 2 diabetes mellitus without complications (ICD-10 - E11.9) Plan Of Treatment Next Appt Details Provider Name:Michael jain, 04/22/2025 07:15:00 AM, [address] [place] [address], Suite [facility], [place], [place], [phone], Provider Name:Michael jain, 04/29/2025 02:30:00 PM, [address] [place] [address], [address], [place], [place], [phone], Progress Notes * ELSA LEUNGDOB: 0 (54 yo M)Acc No.[id number]:07/09/2024 Progress Note Patient: ELSA MOYA Provider: Alexander Arriola MD :1970 A ge:53 Y S ex:Male Date:07/09/2024 Address:[address] [place], [place] [phone] Subjective: * Chief Complaints: * 1 . LIVER PANEL. * Medical History: Objective: * Vitals: Assessment: * Assessment: 1. T ype 2 diabetes mellitus without complications - E11.9 (Primary) Plan: * Treatment: * Procedure Codes: 3 6415 VENIPUNCT, ROUTINE* * * The named appointment provid er may or may not be the originator of this progress note, and it is not deemed complete until electronically signed by the appointment provider. Sign off status: Pending * Provider: Alexander Arriola MD Date: 0 07/09/2024 Generated for Gina howard/Mallika/Marzenaitting on: 1 12:09 PM EDT
--- OUTSIDE RECORDS SUMMARY | 2024-07-16 05:00 | XMS_ITS ---
Author Organization Michael Arriola MD Address [address] [place] [phone] Care Team Providers Care Revenue Audit Clerk Name Role Phone Michael Arriola Primary Care Provider Allergies No Known Allergies REASON FOR VISIT review US and Labs Medications Medication SIG (Take, Route, Frequency, Duration) Notes Start Date End Date Status FreeStyle Ray 2 Sensor - as directed every 14 janessa for 60 days 02/27/2022 Unknown Atorvastatin Calcium 80 MG TAKE 1 TABLET BY MOUTH EVERY DAY Oral Once a day for 90 days 12/08/2021 Unknown oxyCODONE HCl 5 MG 1 tablet as needed Orally every 6 hrs Not-Taking NovoLOG FlexPen 100 UNIT/ML 10 to 20 units sq twice a day 11/20/2022 Not-Taking NovoLOG 100 UNIT/ML 10 to 20 units Injec tion twice a day Not-Taking BD Pen Needle Micro U/F 32G X 6 MM as directed 3 times daily for 90 days 11/20/2022 Active Mounjaro 5 MG/0.5ML `10 mg Subcutaneous Active Lantus SoloStar 100 UNIT/ML as directed Subcutaneous 60 units twice daily for 90 days 09/27/2023 Unknown Pantoprazole Sodium 40 MG 1 tablet Orally Once a day for 30 days Active Basaglar KwikPen 100 UNIT/ML as directed Subcutaneous 60 units twice a siva for 90 days Unknown Eliquis 5 MG 1 tablet Orally Twic e a day for 30 day(s) 09/26/2023 Unknown Tadalafil 10 MG 1 or 2 tabs Orally O nce a day as needed for 30 day(s) 09/26/2023 Unknown Vital Signs Height 73 in 07/16/2024 Encounters Encounter Location Date Provider Diagnosis Michael Arriola MD [address] [place] [phone] 07/16/2024 Michael Arriola Plan Of Treatment Next Appt Details Provider Name:Michael Wong ier, 04/22/2025 07:15:00 AM, [address], [address], [place], [phone], Provider Name:Michael Wong ier, 04/29/2025 02:30:00 PM, [address], [address], [place], [phone], Progress Notes * ELSA LEUNGDOB: 0 (54 yo M)Acc No.[id number]:07/16/2024 Progress Notes Patient: ELSA MOYA Provider: Alexander Arriola MD :1970 A ge:53 Y S ex:Male Date:07/16/2024 Address:[address] [place], [place] [phone] Subjective: * Chief Complaints: * 1 . review US and Labs. * HPI: S ymptom(s): patient is a 53 yo male here for follow up visit, to review recent US and labs. * ROS: G eneral/Constitutional: Denies C hills. D enies F atigue. D enies F ever. D enies H eadache. E NT: Denies S ore throat. R espiratory: Denies C ough. D enies S hortness of breath at rest. D enies S hortness of breath with exertion. G astrointestinal: Denies D iarrhea. D enies N ausea. * Medical History: 2 022 had lumbar surgery with secondary infection. had to take out titanium and reoperate, Atrial fibrillation 2004 with ablation, Colonoscopy 2020.. * Medications: T aking Pantoprazole Sodium 40 MG Tablet Delayed Release 1 tablet Orally Once a day , Taking Mounjaro 5 MG/0.5ML Solution Pen-injector `10 mg Subcutaneous , Taking BD Pen Needle Micro U/F 32G X 6 MM Miscellaneous as directed 3 times daily , Not- Taking/PRN NovoLOG 100 UNIT/ML Solution 10 to 20 units Injection twice a day , Not- Taking/PRN NovoLOG FlexPen 100 UNIT/ML Solution Pen-injector 10 to 20 units sq twice a day , Not-Taking/PRN oxyCODONE HCl 5 MG Tablet 1 tablet as needed Orally every 6 hrs , Unknown Atorvastatin Calcium 80 MG Tablet [...] directed Subcutaneous 60 units twice a siva , Unknown Lantus SoloStar 100 UNIT/ML Solution Pen-injector as directed Subcutaneous 60 units twice daily * Allergies: N .K.D.A. Objective: * Vitals: H t: 73. * P ast Orders: L ab:Liver Panel (Order Date - 07/09/2024) (Collection Date & Time - 07/09/2024 08:30 AM) Value Reference Range Bilirubin Total 0.6 0.0-1.0 - mg/dL Bilirubin Direct 0.2 0.0-0.5 - mg/dL Aspartate Amino Transferase 36 5-37 - U/L Alanine Aminotransferase 53 H 0-40 - U/L Total Protein 6.7 6.5-8.0 - g/dL Albumin Level 4.0 3.5-5.0 - g/dL Alkaline Phosphatase 88 39-117 - U/L Assessment: Plan: * Treatment: * * The named appointment provid er may or may not be the originator of this progress note, and it is not deemed complete until electronically signed by the appointment provider. Sign off status: Pending * Provider: Alexander Arriola MD Date: 0 07/16/2024 Generated for Gina howard/Mallika/Lisa on: 1 12:09 PM EDT History and Physical Notes * HPI (History of Present Illness) Category Sub-Category Detail Notes Category Not es Symptom(s) patient is a 53 yo male here for follow up visit, to review recent US and labs
--- OUTSIDE RECORDS SUMMARY | 2024-08-11 09:30 | XMS_ITS ---
Author Organization Michael Arriola MD Address [address] [place] [phone] Care Team Providers Care Cytotechnologist/Cytology Supervisor Name Role Phone Michael Arriola Primary Care Provider Allergies No Known Allergies Results Component Value Reference Range Notes Hemoglobin A1c Reviewed date:08/11/2024 01:37:38 PM Interpretation: Performing Lab: Notes/Report: Hemoglobin A1c 7.8 Glucose, finger stick Reviewed date:08/11/2024 01:31:12 PM Interpretation: Performing Lab: Notes/Report: Value 138 Reason For Referral Reason left knee pain Diagnosis 1 Knee pain (M25.569) Referral Organization Michael Arriola MD Referring Provider First Name Michael Referring Provider Last Name Zeinab Referring Provider Speciality Internal M edicine Referred Provider Unknown, Provider Referred Provider Specialty Orthopedic [facility] General Notes Kathleen Peoples 0 08/11/2024 02:05:04 PM >patient wants to go to a provider on [place]. Patient will get back to me with name of provider, fax# and NPI#, Kathleen Peoples 08/17/2024 02:06:34 PM >tried calling patient, not able to leave a message. Referral marked pending, Kathleen Peoples 08/17/2024 02:59:12 PM >appt is with Dr. Mychal Yates at [facility] phone fax [phone] for insurance referral , patient is aware of his appt Referral Priority Routine Referral Appointment Date 10/07/2024 REASON FOR VISIT left knee pain/ wants to go to [place] Medications Medication SIG (Take, Route, Frequency, Duration) Notes Start Date End Date Status FreeStyle Ray 2 Sensor - as directed every 14 janessa for 60 days 02/27/2022 Active Tadalafil 10 MG 1 or 2 tabs Orally O nce a day as needed for 30 day(s) 09/26/2023 Not-Taking Basaglar KwikPen 100 UNIT/ML as directed Subcutaneous 60 units twice a siva for 90 days Not-Taking Lantus SoloStar 100 UNIT/ML as directed Subcutaneous 60 units twice daily for 90 days 09/27/2023 Not-Taking Eliquis 5 MG 1 tablet Orally Twic e a day for 30 day(s) 09/26/2023 Not-Taking NovoLOG 100 UNIT/ML 10 to 20 units Injec tion twice a day Active Pantoprazole Sodium 40 MG 1 tablet Orally Once a day for 30 days Not-Taking Atorvastatin Calcium 80 MG TAKE 1 TABLET BY MOUTH EVERY DAY Oral Once a day for 90 days 12/08/2021 Not-Taking NovoLOG FlexPen 100 UNIT/ML 10 to 20 units sq twice a day 11/20/2022 Not-Taking oxyCODONE HCl 5 MG 1 tablet as needed Orally every 6 hrs Not-Taking Mounjaro 5 MG/0.5ML `10 mg Subcutaneous Active BD Pen Needle Micro U/F 32G X 6 MM as directed 3 times daily for 90 days 11/20/2022 Active Vital Signs Blood pressure systolic 142 mm Hg 08/12/19 25 Blood pressure diastolic 76 mm Hg 025 Height 73 in 08/11/2024 Weight 270 lbs 08/11/2024 BMI 35.62 kg/m2 08/11/2024 weight is down [address] [facility] e 04-27-24 Encounters Encounter Location Date Provider Diagnosis Michael Arriola MD [address] [place] [phone] 08/11/2024 Michael Arriola Type 2 diabetes mellitus without complications E11.9 and Knee pain M25.569 Assessments Encounter Date Diagnosis (ICD Code) Assessment Notes Treatment Notes Treatment Clinical Notes Section Notes 08/11/2024 Type 2 diabetes mellitus without complications (ICD-10 - E11.9) 08/11/2024 Knee pain (ICD-10 - M25.569) is wanting to go to [facility] [place] [facility] [place]/ Plan Of Treatment Treatment Notes Assessment Notes Knee pain is wanting to go to [facility] [place] [facility] [place]/ Referrals Referral Date Details 08/11/2024 08/11/2024, left kne e pain Next Appt Details Provider Name:Michael Wong ier, 04/22/2025 07:15:00 AM, [address], [address], [place], [place], [phone], Provider Name:Michael Wong ier, 04/29/2025 02:30:00 PM, [address], [address], [place], [place], [phone], Progress Notes * ELSA LEUNGDOB: 0 (53 yo M)Acc No.[id number]:08/11/2024 Progress Notes Patient: ELSA MOYA Provider: Alexander Arriola MD :1970 A ge:53 Y S ex:Male Date:08/11/2024 Address:[address] [place], [place] [phone] Subjective: * Chief Complaints: * l eft knee pain/ wants to go to [place] * HPI: S ymptom(s): patient is a 53 yo male here with complaint of left knee pain/ had knee surgery one year ago. having a lot of pain still. icining knee all the time but still with pain. thinks that it is pushing his sugars. * ROS: G eneral/Constitutional: Denies C hills. D enies F atigue. D enies F ever. D enies H eadache. E NT: Denies S ore throat. E ndocrine: Denies D ifficulty sleeping. D enies D izziness.?Denies E xcessive sweating. D enies E xcessive thirst. D enies F requent urination. R espiratory: Denies C ough. D enies S hortness of breath at rest. D enies S hortness of breath with exertion. G astrointestinal: Denies D iarrhea. D enies N ausea. M usculoskeletal: Patient complaining of c /o left knee pain . ? * Medical History: * Surgical History: * Hospitalization/Major Diagno stic Procedure: * Medications: T akingMounjaro 5 MG/0.5ML Solution Pen-injector `10 mg Subcutaneous BD Pen Needle Micro U/F 32G X 6 MM Miscellaneous as directed 3 times daily NovoLOG 100 UNIT/ML Solution 10 to 20 units Injection twice a day FreeStyle Ray 2 Sensor - Miscellaneous as directed every 14 janessa Taking Mounjaro 5 MG/0.5ML Solution Pen-injector `10 mg Subcutaneous Taking BD Pen Needle Micro U/F 32G X 6 MM Miscellaneous as directed 3 times daily Taking NovoLOG 100 UNIT/ML Solution 10 to 20 units Injection twice a day Taking FreeStyle Ray 2 Sensor - Miscellaneous as directed every 14 janessa Not-Taking/PRNPantoprazole Sodium 40 MG Tablet Delayed Release 1 tablet Orally Once a day NovoLOG FlexPen 100 UNIT/ML Solution Pen-injector 10 to 20 units sq twice a day oxyCODONE HCl 5 MG Tablet 1 tablet as needed Orally every 6 hrs Atorvastatin Calcium 80 MG Tablet TAKE 1 TABLET BY MOUTH EVERY DAY Oral Once a day Eliquis 5 MG Tablet 1 tablet Orally Twice a day Basaglar KwikPen 100 UNIT/ML Solution Pen-injector as directed Subcutaneous 60 units twice a siva Lantus SoloStar 100 UNIT/ML Solution Pen-injector as directed Subcutaneous 60 units twice daily Tadalafil 10 MG Tablet 1 or 2 tabs Orally Once a day as needed Not-Taking/PRN Pantoprazole Sodium 40 MG Tablet Delayed Release 1 tablet Orally Once a day Not-Taking/PRN NovoLOG FlexPen 100 UNIT/ML Solution Pen-injector 10 to 20 units sq twice a day Not-Taking/PRN oxyCODONE HCl 5 MG Tablet 1 tablet as needed Orally every 6 hrs Not-Taking/PRN Atorvastatin Calcium 80 MG Tablet TAKE 1 TABLET BY MOUTH EVERY DAY Oral Once a day Not-Taking/PRN Eliquis 5 MG Tablet 1 tablet Orally Twice a day Not-Taking/PRN Basaglar KwikPen 100 UNIT/ML Solution Pen-injector as directed Subcutaneous 60 units twice a siva Not-Taking/PRN Lantus SoloStar 100 UNIT/ML Solution Pen-injector as directed Subcutaneous 60 units twice daily Not-Taking/PRN Tadalafil 10 MG Tablet 1 or 2 tabs Orally Once a day as needed * Allergies: N .K.D.A.yes[Allergies Verified] Objective: * Vitals: H t: 73, Wt: 270, BMI:35.62, BP:142/76, Repeat BP:120/80, Wt-k.47. weight is down 7 pounds since 04-27-24. * Examination: G eneral Examination: GENERAL APPEARANCE: a lert, well hydrated, in no distress.? HEAD: n ormocephalic. HEART: n o murmurs, rubs, gallops, regular rate and rhythm.? EXTREMITIES: a bnormal left knee swollen compared to the rt. Assessment: * Assessment: 1. T ype 2 diabetes mellitus without complications - E11.9 (Primary) 2 . K nee pain - M25.569 Plan: * Treatment: Value Reference Range H emoglobin A1c 7.8 ?LAB: Glucose, finger stick (Collection Date & Time - 08/11/2024)* Value Reference Range V alue 138 2.?Knee pain? Notes: is wanting to go to [facility] [place] [facility] [place]/ ? Referral To: Provider Unknown??Orthopedic Surgery ?Reason:left knee pain * Procedure Codes: 8 2947 ASSAY, GLUCOSE, BLOOD QUANT, Modifiers: QW 10795 GLYCATED HEMOGLOBIN TEST, Modifiers: QW * * Sign off status: Completed true * Provider: Alexander Arriola MD Date: 0 08/11/2024 Generated for Gina howard/Mallika/Kenziesmdavy on: 1 12:09 PM EDT History and Physical Notes * HPI (History of Present Illness) Category Sub-Category Detail Notes Category Not es Symptom(s) patient is a 53 yo male here with complaint of left knee pain/ had knee surgery one year ago. having a lot of pain still. icining knee all the time but still with pain. thinks that it is pushing his sugars. Examination Category Sub-Category Detail Notes Category Not es General Examination GENERAL APPEARANCE: alert, w ell hydrated, in no distress HEAD: normocephalic HEART: no murmurs, rubs, ga llops, regular rate and rhythm EXTREMITIES: abnormal left knee s wollen compared to the rt Consultation Request Notes Referral Date Referring Provider Referred Provider Not es 08/11/2024 Michael Arriola Unknown, Provider left k nee pain
--- OUTSIDE RECORDS SUMMARY | 2024-10-23 03:30 | XMS_ITS ---
Author Organization Michael Arriola MD Address [address] [place], [place] [id number] Care Team Providers Care Child Center Assistant Name Role Phone Michael Arriola Primary Care Provider Results Component Value Reference Range Notes Glucose Fasting Reviewed date:10/23/2024 09:15:33 PM Interpretation: Performing Lab:[facility], [address] [place] [phone] Notes/Report: Glucose Fasting 138 60-99 mg/dL A fasting glucose of 126 mg/dl or greater on more than one occasion is considered diagnostic of diabetes. Lipid Panel with Reflex Reviewed date:10/23/2024 09:13:58 PM Interpretation: Performing Lab:[facility], [address] [place] [phone] Notes/Report: Triglycerides 144 <150 mg/dL Desirable Triglyceride: less than 150 mg/dL Borderline High Triglyceride 150-199 mg/dL High Triglyceride: 200-499 mg/dL Very High Triglyceride: greater than or equal to 5OO mg/dL Cholesterol 179 <200 mg/dL Desirable Cholesterol: less than 200 mg/dL Borderline High Cholesterol: 200-239 mg/dL High Cholesterol: greater than 239 mg/dL LDL Cholesterol Calculated 114 <100 mg/dL Desirable LDL: less than 100 mg/dL Near Optimal/Above Optimal LDL: 110-129 mg/dL Borderline High LDL: 130-159 mg/dL High LDL: 160-189 mg/dL Very High LDL: greater than or equal to 190 mg/dL HDL Cholesterol 37 >40 mg/dL Desirable HDL: greater than 40 mg/dL Note: This HDL assay may give artificially low results in patients with liver disease. Hemoglobin A1c Reviewed date:10/23/2024 09:14:24 PM Interpretation: Performing Lab:[facility], [address] [place] [phone] Notes/Report: Hemoglobin A1c % 8.0 <6.0 % Hemoglobin A1C Reference Range Adults: 4.8 - 6.0 % Non diabetic: < 6.0 % Goal: < 7.0 % Additional Action Suggested: > 8.0 % Note: Hemoglobin A1c results are invalid for patients with abnormal amounts of HbF. Blood transfusions may impact the HbA1c concentration in the patient sample. Estimated Average Glucose 183 eAG = Estimated average glucose which is %A1C expressed as average glucose, using the formula of the O1F-Urhpooo Average Glucose study (ADAG), Diabetes Care, Vol.31,#8, 2007 REASON FOR VISIT FASTING LIPIDS Encounters Encounter Location Date Provider Diagnosis Michael Arriola MD [address] [place] [phone] 10/23/2024 Michael Arriola Type 2 diabetes mellitus without complications E11.9 and Low HDL (under 40) E78.6 Assessments Encounter Date Diagnosis (ICD Code) Assessment Notes Treatment Notes Treatment Clinical Notes Section Notes 10/23/2024 Type 2 diabetes mellitus without complications (ICD-10 - E11.9) 10/23/2024 Low HDL (under 40) (ICD-10 - E78.6) Plan Of Treatment Next Appt Details Provider Name:Michael jain, 04/22/2025 07:15:00 AM, [address] [place] [address], [phone], Provider Name:Michael jain, 04/29/2025 02:30:00 PM, [address] [place] [address], [address], [phone], Progress Notes * ELSA LEUNGDOB: 0 (54 yo M)Acc No.[id number]:10/23/2024 Progress Note Patient: ELSA MOYA Provider: Alexander Arriola MD :1970 A ge:53 Y S ex:Male Date:10/23/2024 Address:[address] [place], [place] [phone] Subjective: * Chief Complaints: * 1 . FASTING LIPIDS. * Medical History: Objective: * Vitals: Assessment: * Assessment: 1. T ype 2 diabetes mellitus without complications - E11.9 (Primary) 2 . L ow HDL (under 40) - E78.6 Plan: * Treatment: 2. L ow HDL (under 40) L AB: Glucose Fasting (Collection Date & Time - 10/23/2024 07:30 AM) L AB: Lipid Panel with Reflex (Collection Date & Time - 10/23/2024 07:30 AM) L AB: Hemoglobin A1c (Collection Date & Time - 10/23/2024 07:30 AM) * Procedure Codes: 3 6415 VENIPUNCT, ROUTINE* * * The named appointment provid er may or may not be the originator of this progress note, and it is not deemed complete until electronically signed by the appointment provider. Sign off status: Pending * Provider: Alexander Arriola MD Date: 0 10/23/2024 Generated for Gina howard/Mallika/eTmalikasmitting on: 1 12:08 PM EDT
--- OUTSIDE RECORDS SUMMARY | 2024-10-29 03:45 | XMS_ITS ---
Author Organization Michael Arriola MD Address [address] [place] [phone] Care Team Providers Care Cook Syrup Maker Name Role Phone Michael Arriola Primary Care Provider Allergies No Known Allergies REASON FOR VISIT 6 MO F/U, Blood sugar is 248 Medications Medication SIG (Take, Route, Frequency, Duration) Notes Start Date End Date Status Atorvastatin Calcium 40 MG 1 tablet Orally Once a day for 90 days 10/29/2024 Active BD Pen Needle Micro U/F 32G X 6 MM as directed 3 times daily for 90 days 11/20/2022 Active FreeStyle Ray 2 Sensor - as directed every 14 janessa for 60 days 02/27/2022 Active Mounjaro 5 MG/0.5ML `10 mg Subcutaneous Active Basaglar KwikPen 100 UNIT/ML as directed Subcutaneous 60 units twice a siva Active NovoLOG 100 UNIT/ML 10 to 20 units Injec tion twice a day Not-Taking Lantus SoloStar 100 UNIT/ML as directed Subcutaneous 60 units twice daily for 90 days 09/27/2023 Not-Taking Problems Problem Type SNOMED Code ICD Code Onset Dates Problem Status W/U Status Risk Notes Problem hypercholesterolemia (disorder) (82930414) Hypercholesteremia (E78.00) Active confirmed Vital Signs Blood pressure systolic 138 mm Hg 10/30/19 25 Blood pressure diastolic 70 mm Hg 025 Height 73 in 10/29/2024 Weight 272 lbs 10/29/2024 BMI 35.88 kg/m2 10/29/2024 Encounters Encounter Location Date Provider Diagnosis Michael Arriola MD [address] [place], [place] [phone] 10/29/2024 Michael Arriola Type 2 diabetes wenceslao itus without complications E11.9 and Hypercholesteremia E78.00 Assessments Encounter Date Diagnosis (ICD Code) Assessment Notes Treatment Notes Treatment Clinical Notes Section Notes 10/29/2024 Type 2 diabetes mellitus without complications (ICD-10 - E11.9) not doing well with sugars. feels that the pain in knee is causing his sugars are high, will continue current regiment and will continue to monitor 10/29/2024 Hypercholesteremia (ICD-10 - E78.00) not taking his atorvastatin, will re start and will monitor Plan Of Treatment Medication Medication Name Sig Start Date Stop Date Notes Atorvastatin Calcium 40 MG 1 tablet Oral ly Once a day for 90 days 10/29/2024 Mounjaro 5 MG/0.5ML `10 mg Subcutaneous Basaglar KwikPen 100 UNIT/ML as directed Subcutaneous 60 units twice a siva Treatment Notes Assessment Notes Type 2 diabetes mellitus without complic ations not doing well with sugars. feels that the pain in knee is causing his sugars are high, will continue current regiment and will continue to monitor Hypercholesteremia not taking his atorv astatin, will re start and will monitor Next Appt Details Provider Name:Michael jain, 04/22/2025 07:15:00 AM, [address] [place] [address], [place] [address], [place], [place], [phone], Provider Name:Michael jain, 04/29/2025 02:30:00 PM, [address] [place] [address], [place] [address], [place], [place], [phone], Progress Notes * ELSA LEUNGDOB: 0 (54 yo M)Acc No.[id number]:10/29/2024 Progress Notes Patient: ELSA MOYA Provider: Alexander Arriola MD :1970 A ge:54 Y S ex:Male Date:10/29/2024 Address:[address] [place], [place] [phone] Subjective: * Chief Complaints: * 6 MO F/UBlood sugar is 248 * HPI: S ymptom(s): patient is 54 yo male here for 6 month follow up visieating 2 meals a day feels sugars are high because of the pain in knee. * ROS: G eneral/Constitutional: Denies C hills. [...] D enies N ausea. * Medical History: * Surgical History: * Hospitalization/Major Diagno stic Procedure: * Medications: T akingMounjaro 5 MG/0.5ML Solution Pen-injector `10 mg Subcutaneous BD Pen Needle Micro U/F 32G X 6 MM Miscellaneous as directed 3 times daily FreeStyle Ray 2 Sensor - Miscellaneous as directed every 14 janessa Basaglar KwikPen 100 UNIT/ML Solution Pen-injector as directed Subcutaneous 60 units twice a siva Taking Mounjaro 5 MG/0.5ML Solution Pen-injector `10 mg Subcutaneous Taking BD Pen Needle Micro U/F 32G X 6 MM Miscellaneous as directed 3 times daily Taking FreeStyle Ray 2 Sensor - Miscellaneous as directed every 14 janessa Taking Basaglar KwikPen 100 UNIT/ML Solution Pen-injector as directed Subcutaneous 60 units twice a siva Not-Taking/PRNNovoLOG 100 UNIT/ML Solution 10 to 20 units Injection twice a day Lantus SoloStar 100 UNIT/ML Solution Pen-injector as directed Subcutaneous 60 units twice daily Medication List reviewed and reconciled with the patientNot-Taking/PRN NovoLOG 100 UNIT/ML Solution 10 to 20 units Injection twice a day Not-Taking/PRN Lantus SoloStar 100 UNIT/ML Solution Pen-injector as directed Subcutaneous 60 units twice daily Medication List reviewed and reconciled with the patient * Allergies: N .K.D.A.yes[Allergies Verified] Objective: * Vitals: H t: 73, Wt: 272, BMI:35.88, BP:138/70, Wt-k.38. * P ast Orders: L ab:Hemoglobin A1c (Order Date - 10/23/2024) (Collection Date & Time - 10/23/2024 07:30 AM) Value Reference Range Hemoglobin A1c % 8.0 H <6.0 - % Estimated Average Glucose 183 - mg/dL L ab:Glucose Fasting (Order Date - 10/23/2024) (Collection Date & Time - 10/23/2024 07:30 AM) Value Reference Range Glucose Fasting 138 H 60-99 - mg/dL L ab:Lipid Panel with Reflex (Order Date - 10/23/2024) (Collection Date & Time - 10/23/2024 07:30 AM) Value Reference Range Triglycerides 144 <150 - mg/dL Cholesterol 179 <200 - mg/dL LDL Cholesterol Calculated 114 H <100 - mg/dL HDL Cholesterol 37 L >40 - mg/dL * Examination: G eneral Examination: GENERAL APPEARANCE: a lert, well hydrated, in no distress.? HEAD: n ormocephalic. SKIN: g ood turgor. HEART: n o murmurs, rubs, gallops, regular rate and rhythm.? LUNGS: n o wheezes, rales, rhonchi, good air movement, clear to auscultation bilaterally. Assessment: * Assessment: 1. T ype 2 diabetes mellitus without complications - E11.9 (Primary) 2 . H ypercholesteremia - E78.00 Plan: * Treatment: 2. H ypercholesteremia Notes: not taking his atorvastatin, will re start and will monitor * Procedure Codes: * * Sign off status: Completed true * Provider: Alexander Arriola MD Date: 0 10/29/2024 Generated for Gina howard/Mallika/Lisa on: 12:08 PM EDT History and Physical Notes * HPI (History of Present Illness) Category Sub-Category Detail Notes Category Not es Symptom(s) patient is 54 y o male here for 6 month follow up visieating 2 meals a day feels sugars are high because of the pain in knee Examination Category Sub-Category Detail Notes Category Not es General Examination GENERAL APPEARANCE: alert, w ell hydrated, in no distress HEAD: normocephalic HEART: no murmurs, rubs, ga llops, regular rate and rhythm LUNGS: no wheezes, rales, r honchi, good air movement, clear to auscultation bilaterally SKIN: good turgor
--- OUTSIDE RECORDS SUMMARY | 2024-11-05 04:46 | XMS_ITS ---
Author Organization Michael Arriola MD Address [address] [place] [phone] Care Team Providers Care Electro Mechanical Assembler Name Role Phone Michael Arriola Primary Care Provider REASON FOR VISIT ER Visit rec'd Encounters Encounter Location Date Provider Diagnosis Michael Arriola MD [address] [place] [address] [place] [phone] 11/05/2024 Michael Arriola Plan Of Treatment Next Appt Details Provider Name:Michael Wong ier, 04/22/2025 07:15:00 AM, [address] [place] [address], [place] [address], [place], [place], [phone], Provider Name:Michael Wong iekatina, 04/29/2025 02:30:00 PM, [address] [place] [address], [address], [phone], Progress Notes * ELSA LEUNGDOB: 0 (54 yo M)Acc No.[id number]:11/05/2024 Patient: ELSA MOYA :1970 A ge:54 Y S ex:Male Address:[address] [place] [address], [place] [address] * true * Date: Generated for Printi ng/Faxing/eTransmitting on: 12:08 PM EDT
--- OUTSIDE RECORDS SUMMARY | 2024-11-19 06:00 | XMS_ITS ---
Author Organization Michael Arriola MD Address [address] [place] [phone] Care Team Providers Care Sports Manager Name Role Phone Michael Arriola Primary Care Provider Allergies No Known Allergies REASON FOR VISIT PH/TCM, Blood sugar 2 hour pp was 166 this AM Medications Medication SIG (Take, Route, Frequency, Duration) Notes Start Date End Date Status BD Pen Needle Micro U/F 32G X 6 MM as directed 3 times daily for 90 days 11/20/2022 Active FreeStyle Ray 2 Sensor - as directed every 14 janessa for 60 days 02/27/2022 Active Eliquis 5 MG as directed Orally Active Lantus SoloStar 100 UNIT/ML as directed Subcutaneous 60 units twice daily for 90 days 09/27/2023 Not-Taking NovoLOG 100 UNIT/ML 10 to 20 units Injec tion twice a day Not-Taking Basaglar KwikPen 100 UNIT/ML as directed Subcutaneous 60 units twice a siva Active Atorvastatin Calcium 40 MG 1 tablet Orally Once a day for 90 days 10/29/2024 Active Mounjaro 5 MG/0.5ML `10 mg Subcutaneous Active Vital Signs Blood pressure systolic 112 mm Hg 11/20/19 25 Blood pressure diastolic 64 mm Hg 025 Height 73 in 11/19/2024 Weight 270 lbs 11/19/2024 BMI 35.62 kg/m2 11/19/2024 weight is down 2 pounds kye bolaños 10-29-24 Encounters Encounter Location Date Provider Diagnosis Michael Arriola MD [address] [place], [place] [phone] 11/19/2024 Michael Arriola Pulmonary emboli I26.99 and Venous thrombosis I82.90 Assessments Encounter Date Diagnosis (ICD Code) Assessment Notes Treatment Notes Treatment Clinical Notes Section Notes 11/19/2024 Pulmonary emboli (ICD-10 - I26.99) 11/19/2024 Venous thrombosis (ICD-10 - I82.90) will need to stay on anticoagulants the rest of his life regardless of the blood tests. is going to see hematology and there is a clot clinic at [facility] he is supposed to see Total time spent on the date of the encounter is 35 minutes including both face to face time spent and time spent reviewing documentation, pertinent lab data, studies and counseling the patient. Plan Of Treatment Treatment Notes Assessment Notes Venous thrombosis will need to stay on anticoagulants the rest of his life regardless of the blood tests. is going to see hematology and there is a clot clinic at [facility] he is supposed to see Total time spent on the date of the encounter is 35 minutes including both face to face time spent and time spent reviewing documentation, pertinent lab data, studies and counseling the patient. Next Appt Details Follow Up: 3 Weeks, Reason: Provider Name:Michael jain, 04/22/2025 07:15:00 AM, [address] [place] [address], [address] [place] [address], [phone], Provider Name:Michael Adamaris Tomasayanelis cristobal, 04/29/2025 02:30:00 PM, [address] [place] [address], [address] [place] [address], [phone], Progress Notes * ELSA LEUNGDOB: 0 (54 yo M)Acc No.[id number]:11/19/2024 Patient: Issac JACKSONELSA PERDOMO Provider: Alexander Arriola MD :1970 A ge:54 Y S ex:Male Date:11/19/2024 Address:[address] [place], [place] [phone] Subjective: * Chief Complaints: * P H/TCMBlood sugar 2 hour pp was 166 this AM * HPI: S ymptom(s): patient is a 54 yo male here for transitional care management visit. Discharge summary has been reviewed and medication reconcilled/ last week had swelling in calf and started to get warmth and discolored. blue veins showing. no pain feels stiff. was in er 3 weeks ago. got pulmonary emboli. * ROS: G eneral/Constitutional: Denies C hills. D enies F atigue. D enies F ever. D enies H eadache. E NT: Denies S ore throat. R espiratory: Denies C ough. D enies S hortness of breath at rest. D enies S hortness of breath with exertion. G astrointestinal: Denies A bdominal pain. D enies D iarrhea. D enies N ausea. * Medical History: * Surgical History: * Hospitalization/Major Diagno stic Procedure: * Medications: T akingEliquis 5 MG Tablet as directed Orally BD Pen Needle Micro U/F 32G X 6 MM Miscellaneous as directed 3 times daily FreeStyle Ray 2 Sensor - Miscellaneous as directed every 14 janessa Atorvastatin Calcium 40 MG Tablet 1 tablet Orally Once a day Mounjaro 5 MG/0.5ML Solution Pen-injector `10 mg Subcutaneous Basaglar KwikPen 100 UNIT/ML Solution Pen-injector as directed Subcutaneous 60 units twice a siva Taking Eliquis 5 MG Tablet as directed Orally Taking BD Pen Needle Micro U/F 32G X 6 MM Miscellaneous as directed 3 times daily Taking FreeStyle Ray 2 Sensor - Miscellaneous as directed every 14 janessa Taking Atorvastatin Calcium 40 MG Tablet 1 tablet Orally Once a day Taking Mounjaro 5 MG/0.5ML Solution Pen-injector `10 mg Subcutaneous Taking Basaglar KwikPen 100 UNIT/ML Solution Pen-injector [...] Vitals: H t: 73, Wt: 270, BMI:35.62, BP:112/64, Wt-k.47. weight is down 2 pounds since 10-29-24. * Examination: G eneral Examination: GENERAL APPEARANCE: w ell developed, well nourished. HEAD: n ormocephalic. SKIN: g ood turgor. HEART: n o murmurs, rubs, gallops, regular rate and rhythm.? LUNGS: n o wheezes, rales, rhonchi, good air movement, clear to auscultation bilaterally. EXTREMITIES: a bnormal rt leg tense and non tender.. ? Assessment: * Assessment: 1. P ulmonary emboli - I26.99 (Primary) 2 . V enous thrombosis - I82.90? Plan: * Treatment: * Procedure Codes: * Follow Up: 3 Weeks * * Sign off status: Completed true * Provider: Alexander Arriola MD Date: 0 11/19/2024 Generated for Gina howard/Mallika/Modestoransmitting on: 1 12:09 PM EDT History and Physical Notes * HPI (History of Present Illness) Category Sub-Category Detail Notes Category Not es Symptom(s) patient is a 54 yo male here for transitional care management visit. Discharge summary has been reviewed and medication reconcilled/ last week had swelling in calf and started to get warmth and discolored. blue veins showing. no pain feels stiff. was in er 3 weeks ago. got pulmonary emboli Examination Category Sub-Category Detail Notes Category Not es General Examination GENERAL APPEARANCE: well developed , well nourished HEAD: normocephalic HEART: no murmurs, rubs, ga llops, regular rate and rhythm LUNGS: no wheezes, rales, r honchi, good air movement, clear to auscultation bilaterally SKIN: good turgor EXTREMITIES: abnormal rt leg tens e and non tender.
--- OUTSIDE RECORDS SUMMARY | 2024-12-07 10:11 | XMS_ITS ---
Author Organization Michael Arriola MD Address [address] [place] [phone] Care Team Providers Care Plaster Patternmaker Name Role Phone Michael Arriola Primary Care Provider REASON FOR VISIT in referral Encounters Encounter Location Date Provider Diagnosis Michael Arriola MD [address] [place] [address] [place] [phone] 12/07/2024 Michael Arriola Plan Of Treatment Next Appt Details Provider Name:Michael jain, 04/22/2025 07:15:00 AM, [address] [place] [address], Suite [facility], [place], [place], [phone], Provider Name:Michael jain, 04/29/2025 02:30:00 PM, [address] [place] [address], [address] [place] [address], [phone], Progress Notes * ELSA LEUNGDOB: 0 (54 yo M)Acc No.[id number]:12/07/2024 Patient: ELSA MOYA :1970 A ge:54 Y S ex:Male Address:[address] [place] [address], [place] [address] * true * Date: Generated for Printi ng/Faxing/eTransmitting on: 12:09 PM EDT
--- OUTSIDE RECORDS SUMMARY | 2024-12-15 07:00 | XMS_ITS ---
Author Organization Michael Arriola MD Address [address] [place] [phone] Care Team Providers Care Reclamation Worker Name Role Phone Michael Arriola Primary Care Provider [phone] Allergies No Known Allergies REASON FOR VISIT 3 week Medications Medication SIG (Take, Route, Frequency, Duration) [...] twice daily for 90 days 09/27/2023 Not-Taking FreeStyle Ray 2 Sensor - as directed every 14 janessa for 60 days 02/27/2022 Active Atorvastatin Calcium 40 MG 1 tablet Orally Once a day for 90 days 10/29/2024 Active Eliquis 5 MG as directed Orally t wice a day for 90 days Active Vital Signs Blood pressure systolic 116 mm Hg 12/16/19 25 Blood pressure diastolic 60 mm Hg 025 Height 73 in 12/15/2024 Weight 270 lbs 12/15/2024 BMI 35.62 kg/m2 12/15/2024 Encounters Encounter Location Date Provider Diagnosis Michael Arriola MD [address] [place] [phone] 12/15/2024 Michael Arriola Type 2 diabetes, controlled, 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 12/15/2024 History of pulmonary embolism (ICD-10 - Z86.711) will remain on anticoagulants forever. Plan Of Treatment Medication Medication Name Sig Start Date Stop Date Notes Mounjaro 5 MG/0.5ML `10 mg Subcutaneous Basaglar KwikPen 100 UNIT/ML as directed Subcutaneous 60 units twice a siva Eliquis 5 MG as directed Orally t wice a day for 90 days Treatment Notes Assessment Notes Type 2 diabetes, controlled, with neurop athy has been monitering and is doing well . History of pulmonary embolism will remai n on anticoagulants forever. Next Appt Details Follow Up: 4 Months, Reason: Provider Name:Michael jain, 04/22/2025 07:15:00 AM, [address] [place] [address], [address], [phone], Provider Name:Michael jain, 04/29/2025 02:30:00 PM, [address] [place] [address], Suite [facility], [place], [place], [phone], Progress Notes * ELSA LEUNGDOB: 0 (54 yo M)Acc No.[id number]:12/15/2024 Progress Notes Patient: ELSA MOYA Provider: Alexander Arriola MD :1970 A ge:54 Y S ex:Male Date:12/15/2024 Address:[address] [place] [address] Subjective: * Chief Complaints: * 3 week * HPI: S ymptom(s): patient is a 54 yo male here for 3 week follow up visit/ went to blood specialist/ 3 of 4 veins have a clot. * ROS: G eneral/Constitutional: Denies C hills. [...] Vitals: H t: 73, Wt: 270, BMI:35.62, BP:116/60, Wt-k.47. * Examination: G eneral Examination: GENERAL APPEARANCE: a lert, well hydrated, in no distress.? HEAD: n ormocephalic. SKIN: g ood turgor. HEART: n o murmurs, rubs, gallops, regular rate and rhythm.? LUNGS: n o wheezes, rales, rhonchi, good air movement, clear to auscultation bilaterally. EXTREMITIES: a bnormal with swelling of rt leg. no tenderness to palpation. Assessment: * Assessment: 1. T ype 2 diabetes, controlled, with neuropathy - E11.40 (Primary) 2 . H istory of pulmonary embolism - Z86.711 Plan: * Treatment: 2. H istory of pulmonary embolism Notes: will remain on anticoagulants forever. * Procedure Codes: * Follow Up: 4 Months * * Sign off status: Completed true * Provider: Alexander Arriola MD Date: 0 12/15/2024 Generated for Gina howard/Mallika/eTmalikasmitting on: 12:09 PM EDT History and Physical Notes * HPI (History of Present Illness) Category Sub-Category Detail Notes Category Not es Symptom(s) patient is a 54 yo male here for 3 week follow up visit/ went to blood specialist/ 3 of 4 veins have a clot. Examination Category Sub-Category Detail Notes Category Not es General Examination GENERAL APPEARANCE: alert, w ell hydrated, in no distress HEAD: normocephalic HEART: no murmurs, rubs, ga llops, regular rate and rhythm LUNGS: no wheezes, rales, r honchi, good air movement, clear to auscultation bilaterally SKIN: good turgor EXTREMITIES: abnormal with swelli ng of rt leg. no tenderness to palpation
--- OUTSIDE RECORDS SUMMARY | 2025-01-29 03:45 | XMS_ITS ---
Author Organization Michael Arriola MD Address [address] [place], [place] [phone] Care Team Providers Care Waste Machine Tender Name Role Phone Michael Arriola Primary Care Provider [phone] Results Component Value Reference Range Notes Liver Panel Reviewed date:01/29/2025 12:07:26 PM Interpretation: Performing Lab:[address] [id number] Notes/Report: Bilirubin Total 0.6 0.0-1.0 mg/dL Bilirubin Direct 0.2 0.0-0.5 mg/dL Aspartate Amino Transferase 52 5-37 U/L Alanine Aminotransferase 90 0-40 U/L Total Protein 6.8 6.5-8.0 g/dL Albumin Level 4.2 3.5-5.0 g/dL Alkaline Phosphatase 82 39-117 U/L Glucose Fasting Reviewed date:01/29/2025 12:07:05 PM Interpretation: Performing Lab:[facility], [address] [place] [phone] Notes/Report: Glucose Fasting 195 60-99 mg/dL A fasting glucose of 126 mg/dl or greater on more than one occasion is considered diagnostic of diabetes. Lipid Panel Reviewed date:01/29/2025 12:07:16 PM Interpretation: Performing Lab:[facility], [address] [place] [phone] Notes/Report: Triglycerides 130 <150 mg/dL Desirable Triglyceride: less than 150 mg/dL Borderline High Triglyceride 150-199 mg/dL High Triglyceride: 200-499 mg/dL Very High Triglyceride: greater than or equal to 5OO mg/dL Cholesterol 173 <200 mg/dL Desirable Cholesterol: less than 200 mg/dL Borderline High Cholesterol: 200-239 mg/dL High Cholesterol: greater than 239 mg/dL LDL Cholesterol Calculated 110 <100 mg/dL Desirable LDL: less than 100 mg/dL Near Optimal/Above Optimal LDL: 110-129 mg/dL Borderline High LDL: 130-159 mg/dL High LDL: 160-189 mg/dL Very High LDL: greater than or equal to 190 mg/dL HDL Cholesterol 37 >40 mg/dL Desirable HDL: greater than 40 mg/dL Note: This HDL assay may give artificially low results in patients with liver disease. Hemoglobin A1c Reviewed date:01/29/2025 12:06:55 PM Interpretation: Performing Lab:[facility], [address] [place] [phone] Notes/Report: Hemoglobin A1c % 8.9 <6.0 % Hemoglobin A1C Reference Range Adults: 4.8 - 6.0 % Non diabetic: < 6.0 % Goal: < 7.0 % Additional Action Suggested: > 8.0 % Note: Hemoglobin A1c results are invalid for patients with abnormal amounts of HbF. Blood transfusions may impact the HbA1c concentration in the patient sample. Estimated Average Glucose 209 eAG = Estimated average glucose which is %A1C expressed as average glucose, using the formula of the V2V-Svurcnt Average Glucose study (ADAG), Diabetes Care, Vol.31,#8, Oct. 2007 REASON FOR VISIT lipid, liver panel Immunizations Vaccine Route Administration Date Status Comme nts Fluarix Quadrivalent - 150 IM Intramuscular 01/29/2025 Adm inistered Encounters Encounter Location Date Provider Diagnosis Michael Arriola MD [address] [place] [address] [place] [phone] 01/29/2025 Michael Arriola Type 2 diabetes wenceslao itus without complications E11.9 ; Hypercholesteremia E78.00 and Encounter for administration of vaccine Z23 Assessments Encounter Date Diagnosis (ICD Code) Assessment Notes Treatment Notes Treatment Clinical Notes Section Notes 01/29/2025 Type 2 diabetes mellitus without complications (ICD-10 - E11.9) 01/29/2025 Hypercholesteremia (ICD-10 - E78.00) 01/29/2025 Encounter for administration of vaccine (ICD-10 - Z23) Plan Of Treatment Next Appt Details Provider Name:Michael Wong ier, 04/22/2025 07:15:00 AM, [address], [address], [place], [place], [phone], Provider Name:Michael Wong ier, 04/29/2025 02:30:00 PM, [address], [address], [place], [place], [phone], Progress Notes * ELSA LEUNGDOB: 0 (54 yo M)Acc No.[id number]:01/29/2025 Progress Note Patient: ELSA MOYA Provider: Alexander Arriola MD :1970 A ge:54 Y S ex:Male Date:01/29/2025 Address:[address] [place], [place] [phone] Subjective: * Chief Complaints: * 1 . Lipid, liver panel. * Medical History: Objective: * Vitals: Assessment: * Assessment: 1. T ype 2 diabetes mellitus without complications - E11.9 (Primary) 2 . H ypercholesteremia - E78.00 3 . E ncounter for administration of vaccine - Z23? Plan: * Treatment: 2. H ypercholesteremia L AB: Glucose Fasting (Collection Date & Time - 01/29/2025 10:44 AM) L AB: Hemoglobin A1c (Collection Date & Time - 01/29/2025 10:44 AM) * Immunizations: Fluarix Quadrivalent - 150 : 0.5 mL (Dose No:1) (Route: Intramuscular) given by Ladi Dyer , Office Staff on Left Deltoid * Procedure Codes: 3 6415 VENIPUNCT, ROUTINE*, 76065 FLU VACCINE NO PRESERV 3 & >, 44046 IMMUNIZATION ADMIN * * The named appointment provid er may or may not be the originator of this progress note, and it is not deemed complete until electronically signed by the appointment provider. Sign off status: Pending * Provider: Alexander Arriola MD Date: Generated for Gina howard/Mallika/eTransmitting on: 12:08 PM EDT
[2025-01-29 11:40] LABS: Alanine Aminotransferase 90 U/L (0-40); Albumin Level 4.2 g/dL (3.5-5.0); Alkaline Phosphatase 82 U/L (39-117); Aspartate Amino Transferase 52 U/L (5-37); Cholesterol 173 mg/dL (<200); HDL Cholesterol 37 mg/dL (>40); Total Protein 6.8 g/dL (6.5-8.0); Triglycerides 130 mg/dL (<150)
--- OUTSIDE RECORDS SUMMARY | 2025-01-29 12:08 | XMS_ITS | Patient Health Record ---
Author Organization Michael Arriola MD Address [address] [place], [place] [id number] Care Team Providers Care Machine Installer Name Role Phone Michael Arriola Primary Care Provider [phone] Allergies No Known Allergies Results Component Value Reference Range Notes Hemoglobin A1c Reviewed date:08/11/2024 01:37:38 PM Interpretation: Performing Lab: Notes/Report: Hemoglobin A1c 7.8 Complete Blood Count Auto Di ff Reviewed date:04/21/2024 12:48:58 PM Interpretation: Performing Lab:[facility], [address] [place] [phone] Notes/Report: White Blood Count 6.1 4.8-10.8 X10*3/uL [...] NRBC Abs Auto 0.000 0.0-0.012 X10*3/uL Comprehensive [place]. Panel Fa st Reviewed date:04/21/2024 12:49:57 PM Interpretation: Performing Lab:[address] [phone] Notes/Report: Sodium 138 135-145 mmol/L Potassium 3.7 [...] Panel Reviewed date:04/21/2024 12:48:41 PM Interpretation: Performing Lab:[address] [phone] Notes/Report: Triglycerides 117 <150 mg/dL Desirable Triglyceride: [...] (Free>4and<10) Reviewed date:04/21/2024 12:50:08 PM Interpretation: Performing Lab:[address] [phone] Notes/Report: PSA,Total (Free>4and<10) 0.15 0.00-4.00 ng/mL A [...] Random Reviewed date:04/21/2024 12:49:06 PM Interpretation: Performing Lab:[facility], [address] [place] [phone] Notes/Report: Creatinine Urine 103.90 Microalbumin Urine 26.0 Microalbum/Creatinine Ratio Ur 25.0 <30 ug/mg cr Albumin/Creatinine Ratio Reference Ranges: Normal: < 30 ug/mg creatinine Microalbuminuria: 30 - 300 ug/mg creatinine Clinical Albuminuria: > 300 ug/mg creatinine Hemoglobin A1c Reviewed date:04/21/2024 12:49:18 PM Interpretation: Performing Lab:[facility], [address] [place] [phone] Notes/Report: Hemoglobin A1c % 7.5 <6.0 % [...] average glucose, using the formula of the G4R-Ifcqyjl Average Glucose study (ADAG), Diabetes Care, Vol.31,#8, Oct. 2007 Liver Panel Reviewed date:07/09/2024 06:14:28 PM Interpretation: Performing Lab:[facility], [address] [place] [phone] Notes/Report: Bilirubin Total 0.6 0.0-1.0 mg/dL Bilirubin Direct 0.2 0.0-0.5 mg/dL Aspartate Amino Transferase 36 5-37 U/L Alanine Aminotransferase 53 0-40 U/L Total Protein 6.7 6.5-8.0 g/dL Albumin Level 4.0 3.5-5.0 g/dL Alkaline Phosphatase 88 39-117 U/L Glucose Fasting Reviewed date:10/23/2024 09:15:33 PM Interpretation: Performing Lab:[facility], [address] [place] [phone] Notes/Report: Glucose Fasting 138 60-99 mg/dL A fasting glucose of 126 mg/dl or greater on more than one occasion is considered diagnostic of diabetes. Lipid Panel with Reflex Reviewed date:10/23/2024 09:13:58 PM Interpretation: Performing Lab:[facility], [address] [place] [phone] Notes/Report: Triglycerides 144 <150 mg/dL Desirable Triglyceride: [...] A1c Reviewed date:10/23/2024 09:14:24 PM Interpretation: Performing Lab:[address] [phone] Notes/Report: Hemoglobin A1c % 8.0 <6.0 % [...] average glucose, using the formula of the C6M-Epawnyx Average Glucose study (ADAG), Diabetes Care, Vol.31,#8, Oct. 2007 Liver Panel Reviewed date:01/29/2025 12:07:26 PM Interpretation: Performing Lab:[address] [address] Notes/Report: Bilirubin Total 0.6 0.0-1.0 mg/dL Bilirubin Direct 0.2 0.0-0.5 mg/dL Aspartate Amino Transferase 52 5-37 U/L Alanine Aminotransferase 90 0-40 U/L Total Protein 6.8 6.5-8.0 g/dL Albumin Level 4.2 3.5-5.0 g/dL Alkaline Phosphatase 82 39-117 U/L Glucose Fasting Reviewed date:01/29/2025 12:07:05 PM Interpretation: Performing Lab:[address] [address] Notes/Report: Glucose Fasting 195 60-99 mg/dL A fasting glucose of 126 mg/dl or greater on more than one occasion is considered diagnostic of diabetes. Lipid Panel Reviewed date:01/29/2025 12:07:16 PM Interpretation: Performing Lab:[facility], [address] [place] [phone] Notes/Report: Triglycerides 130 <150 mg/dL Desirable Triglyceride: [...] A1c Reviewed date:01/29/2025 12:06:55 PM Interpretation: Performing Lab:[facility], [address] [place] [phone] Notes/Report: Hemoglobin A1c % 8.9 <6.0 % [...] average glucose, using the formula of the D6V-Scjefog Average Glucose study (ADAG), Diabetes Care, Vol.31,#8, Oct. 2007 Glucose, finger stick Reviewed date:08/11/2024 01:31:12 PM Interpretation: Performing Lab: Notes/Report: Value 138 UA CC w/rflx Micro + Cult Reviewed date:04/21/2024 12:50:29 PM Interpretation: Performing Lab:[facility], [address] [place] [phone] Notes/Report: [id number] Urine, Clean Catch Color Urine Yellow Appearance Urine Clear PH 6.5 5.0-9.0 Glucose Urine UA Negative Negative mg/dL Urine Blood Negative Negative Specific [place] - Urine 1.010 1.005-1.025 Urine Protein Negative Neg-Trace mg/dL Urine Ketones Negative Negative mg/dL Nitrite Urine Negative Negative Leukocyte Esterase Urine Negative Negative US abdomen complete Reviewed date:05/12/2024 12:40:56 PM Interpretation: Performing Lab: Notes/Report: [facility] [place] [address] Ultrasound Report Signed Patient: Elsa Chavira MR#: [id number] : 1970 Acct:[id number] Age/Sex: 53 / M ADM Date: 05/11/24 Loc: HO.HMGCX Attending Dr: Michael Arriola MD Ordering Physician: Michael Arriola MD Date of Service: 05/11/24 Procedure(s): US abdomen complete Accession Number(s): [id number] cc: Michael Arriola MD CLINICAL HISTORY: ELEVATED [...] 05/11/24 1041 DD/ 1040 TD/TT: 05/11/24 1040 Linux Admin: [facility] [address] [place] [address] [place] [address] Ultrasound Report Signed Patient: Miles Chavira MR#: [id number] : 1970 Acct:[id number] Age/Sex: 53 / M ADM Date: 05/11/24 Loc: HO.HMGCX Attending Dr: Michael Arriola MD Ordering Physician: Michael Arriola MD Date of Service: 05/11/24 Procedure(s): US abdomen complete Accession Number(s): [id number] cc: Michael Arriola MD CLINICAL HISTORY: ELEVATED [...] 05/11/24 1041 DD/ 1040 TD/TT: 05/11/24 1040 Linux Admin: Skip Sauceda Reviewed date:10/23/2024 09:10:49 PM Interpretation: Performing Lab:[facility], [address] [place] [phone] Notes/Report: Skip Sauceda See Note Specimen held untested for 24 hours; Call to request Chemistry testing. Skip Sauceda Reviewed date:01/29/2025 11:28:30 AM Interpretation: Performing Lab:[facility], [address] [place] [phone] Notes/Report: Skip Sauceda See Note Specimen held untested for 24 hours; Call to request Chemistry testing. Reason For Referral Reason left knee pain Diagnosis 1 Knee pain (M25.569) Referral Organization Michael Arriola MD Referring Provider First Name Michael Referring Provider Last Name Zeinab Referring Provider Speciality Internal M edicine Referred Provider Unknown, Provider Referred Provider Specialty Orthopedic [facility] Notes Kathleen Peoples 0 08/11/2024 02:05:04 PM >patient wants to go to a provider on [place]. Patient will get back to me with name of provider, fax# and NPI#, Kathleen Peoples 08/17/2024 02:06:34 PM >tried calling patient, not able to leave a message. Referral marked pending, Kathleen Peoples 08/17/2024 02:59:12 PM >appt is with Dr. Mychal Yates at [facility] phone fax [phone] for insurance referral , patient is aware [...] Subcutaneous 60 units twice a siva Active FreeStyle Ray 2 Sensor - as directed every 14 janessa for 60 days 02/27/2022 Active Atorvastatin Calcium 40 MG 1 tablet Orally Once a day for 90 days 10/29/2024 Active Eliquis 5 MG as directed Orally t wice a day for 90 days Active NovoLOG 100 UNIT/ML 10 to 20 units Injec tion twice a day Not-Taking Lantus SoloStar 100 UNIT/ML as directed Subcutaneous 60 units twice daily for 90 days 09/27/2023 Not-Taking Immunizations Vaccine Route Administration Date Status Comme nts SARS-COV-2 Pfizer Unknown 06/04/2020 Administered SARS-COV-2 Pfizer Unknown 06/25/2020 Administered SARS-COV-2 Pfizer Unknown 03/14/2021 Administered Fluarix Quadrivalent IM Intramuscular 04/17/2022 Administe red SARS-COV-2 Moderna 2022 Unknown 04/04/2023 Administered [facility] Fluarix Quadrivalent - 150 IM Intramuscular 01/29/2025 Adm inistered Social History Tobacco Use: Social History Observation [...] Problem Status W/U Status Risk Notes Problem 78245756 Type 2 diabetes mellitus without complications (E11.9) Active confirmed Problem 917615676 Other elevated white blood cell count (D72.828) Active confirmed Problem 279330443672197 Erectile dysfunction due to arterial insufficiency (N52.01) Active confirmed Problem 119721500 Lumbar disc dise ase (M51.9) Active confirmed Problem 279875096 Gastroesophageal reflux disease without esophagitis (K21.9) Active confirmed Problem Lipoprotein deficien cy disorder (912581143) Low HDL (under 40) (E78.6) Active confirmed Problem History of pulmonary embolus (633546910) History of pulmonary embolism (Z86.711) Active confirmed Problem 38383566 Type 2 diabetes, controlled, with neuropathy (E11.40) Active confirmed Problem 23779857 Atrial fibrillation, unspecified type (I48.91) Active confirmed Problem hypercholesterolemia (disorder) (83986709) Hypercholesteremia (E78.00) Active confirmed Problem 57950584 ADALBERTO (obstructive sleep apnea) (G47.33) Active confirmed Problem 642502869 Arthritis of kne e (M17.10) Active confirmed Problem 329250338 Gastroesophageal reflux disease with esophagitis without hemorrhage (K21.00) Active confirmed Problem 375721008 Gastric reflux (K21.9) Active confirmed Vital Signs Blood pressure diastolic 60 mm Hg 12/15/2024 Height 73 in 12/15/2024 Blood pressure systolic 116 mm Hg 12/15/2024 Weight 270 lbs 12/15/2024 BMI 35.62 kg/m2 12/15/2024 Encounters Encounter Location Date Provider Diagnosis Michael Arriola MD [address] [place] [id number] 04/27/2024 Michael Arriola Type 2 diabetes wenceslao itus without complications E11.9 ; Annual physical exam Z00.00 ; Elevated LFTs R79.89 ; Gastroesophageal reflux disease with esophagitis without hemorrhage K21.00 ; Atrial fibrillation, unspecified type I48.91 ; Colon cancer screening Z12.11 and Depression screening Z13.31 Michael Arriola MD [address] [place] [id number] 04/21/2024 Michael Arriola Blood tests for rout ine general physical examination Z00.00 and Type 2 diabetes mellitus without complications E11.9 Michael Arriola MD [address] [facility] [place] [id number] 10/23/2024 Michael Arriola Type 2 diabetes wenceslao itus without complications E11.9 and Low HDL (under 40) E78.6 Michael Arriola MD [address] [facility] [address] [id number] 07/09/2024 Michael Arriola Type 2 diabetes wenceslao itus without complications E11.9 Michael Arriola MD [address] [place] [id number] 01/29/2025 Michael Arriola Type 2 diabetes wenceslao itus without complications E11.9 ; Hypercholesteremia E78.00 and Encounter for administration of vaccine Z23 Michael Arriola MD [address] [place] [id number] 10/29/2024 Michael Arriola Type 2 diabetes wenceslao itus without complications E11.9 and Hypercholesteremia E78.00 Michael Arriola MD [address] [place] [address] [id number] 08/11/2024 Michael Arriola Type 2 diabetes wenceslao itus without complications E11.9 and Knee pain M25.569 Michael Arriola MD [address] [place] [id number] 12/15/2024 Michael Arriola Type 2 diabetes, controlled, with neuropathy E11.40 and History of pulmonary embolism Z86.711 Michael Arriola MD [address] [place] [id number] 11/19/2024 Michael Arriola Pulmonary emboli I26 .99 and Venous thrombosis I82.90 Michael Arriola MD [address] [place] [id number] 05/19/2024 Michael Arriola MD [address] [place] [address] [id number] 11/05/2024 Michael Arriola MD [address] [place] [id number] 12/07/2024 Michael Arriola MD [address] [place] [id number] 03/11/2024 Michael Arriola Type 2 diabetes wenceslao itus without complications E11.9 Assessments Encounter Date Diagnosis [...] mellitus without complications (ICD-10 - E11.9) 01/29/2025 Type 2 diabetes mellitus without complications (ICD-10 - E11.9) 01/29/2025 Hypercholesteremia (ICD-10 - E78.00) 10/29/2024 Type 2 diabetes mellitus without complications (ICD-10 - E11.9) not doing well with sugars. feels that the pain in knee is causing his sugars are high, will continue current regiment and will continue to monitor 10/29/2024 Hypercholesteremia (ICD-10 - E78.00) not taking his atorvastatin, will re start and will monitor 08/11/2024 Type 2 diabetes mellitus without complications (ICD-10 - E11.9) 08/11/2024 Knee pain (ICD-10 - M25.569) [place] [facility] [place]/15/[place]24 Type 2 diabetes, controlled, with neuropathy (ICD-10 - E11.40) has been monitering and is doing well . 11/19/2024 Pulmonary emboli (ICD-10 - I26.99) 11/19/2024 Venous thrombosis (ICD-10 - I82.90) will need to stay on anticoagulants the rest of his life regardless of the blood tests. is going to see hematology and there is a clot clinic at [facility] he is supposed to see Total time spent on the date of the encounter is 35 minutes including both face to face time spent and time spent reviewing documentation, pertinent lab data, studies and counseling the patient. 03/11/2024 Type 2 diabetes mellitus without complications (ICD-10 - E11.9) 04/27/2024 Elevated LFTs (ICD-1 0 - R79.89) will continue to monitor 10/23/2024 Low HDL (under 40) (ICD-10 - E78.6) 01/29/2025 Encounter for administration of vaccine (ICD-10 - Z23) 12/15/2024 History of pulmonary embolism (ICD-10 - Z86.711) will remain on anticoagulants forever. 04/27/2024 Gastroesophageal reflux disease with esophagitis without hemorrhage (ICD-10 - K21.00) stable, will continue current regiment 04/27/2024 Atrial fibrillation, unspecified type (ICD-10 - I48.91) stable 04/27/2024 Colon cancer screening (ICD-10 - Z12.11) guaiac negative 04/27/2024 Depression screening (ICD-10 - Z13.31) negative screen Plan Of Treatment Pending Test Test Name Order Date XR GI SERIES 04/23/2022 US ABD 04/27/2024 Next Appt Details Provider Name:Michaelblack Wong ier, 04/22/2025 07:15:00 AM, [address] [place] [address], [place] [address], [place], [place], [phone], Provider Name:Michael Adamaris Judith ier, 04/29/2025 02:30:00 PM, [address] [place] [address], [place] [address], [place], [place], [phone], Insurance Providers Payer Name Payer Address Payer Phone Subscriber Number Group Number Insured Name Patient Relationship to Insured Coverage Start Date Coverage End Date [facility] [address] [place], [place] [id number] ELSA CHAVIRA Self - patient is the insured Medical (General) History Medical History History ICD Code 2021 had lumbar surgery with secondary infection. had to take out titanium and reoperate atrial fibrillation 2004 with ablation colonoscopy 2020.
--- OUTSIDE RECORDS SUMMARY | 2025-01-29 12:09 | XMS_ITS | Clinical Summary ---
Author Organization [facility] Address [address] [place] [address] Phone Care Team Providers Care Debate Director Name Role Phone Michael Arriola MD Primary Care Provider Allergies No known active allergies Medications atorvastatin (LIPITOR) 80 MG tablet Take 80 mg by mouth daily. 05/15/19 24 Active insulin lispro (ADMELOG, HUMALOG) 100 unit/mL injection pen Inject 10-15 Units under the skin 2 (two) times a day with meals. Active BD ULTRA-FINE MICRO PEN NEEDLE 32 gauge x 1/4 NdleIndications: Type 2 diabetes mellitus with peripheral neuropathy Inject 1 each as directed 3 (three) times a day. 300 each 1 03/16/20 24 Active tirzepatide (MOUNJARO) 10 mg/0.5 mL PnIj subcutaneous penIndications:T ype 2 diabetes mellitus with peripheral neuropathy Inject 0.5 mL (10 mg total) under the skin every 7 days. 6 mL 1 07/08/19 25 Active Additional Information Patient not taking.Reported on 07/13/2024 FREESTYLE SIN 3 PLUS SENSOR DeviIndications: Type 2 diabetes mellitus with peripheral neuropathy 1 each by Miscellaneous route every 15 (fifteen) days. 6 each 3 09/30/19 25 Active LANTUS SOLOSTAR U-100 INSULIN 100 unit/mL (3 mL) InPn injection penIndications:T ype 2 diabetes mellitus with peripheral neuropathy 60 units, subcutaneously, bid AC or as directed 45 mL 5 10/08/19 25 Active Active Problems Problem Noted Date Diagnosed Date [...] with glucose control. Up to date with opho. Will call for recent labs. ? Recent [...] with glucose control. Up to date with opho. Will repeat umalb/creat. BP under good control. [...] date with opho. Labs were done with PCP. Assessment & [...] with glucose control. Up to date with opho. ? Recent urine microalbumin/creatinine ratio? Will call for additional labs. 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 Assessment & Plan [...] to help further improve his glucose levels Immunizations Immunization Administration Dates Next Due COVID-19 [...] Description 02/02/2025 8:20 AM EST Office Visit [facility] Endocrinology [address] [place] [phone] Luci Rand MD [address] [place] [id number] [email or web address] Due Date Last Done Comments Adult Td,Tdap Booster 1970 HEMOGLOBIN A1C 1970 DEPRESSION SCREENING 1981 HEPATITIS C SCREENING 10/29/1987 HIV ONE-TIME SCREENING (18-6 5 YEARS) 10/29/1987 PNEUMOCOCCAL VACCINES (50+ years) (1 of 2 - PCV) 1988 COLOGUARD 2014 COLONOSCOPY 2014 COLORECTAL CANCER SCREENING 2014 FIT TEST 2014 FOBT 2014 SIGMOIDOSCOPY 2014 VIRTUAL COLONOSCOPY 2014 RSV VACCINE (1 - Risk 50-74 years 1-dose series) 10/29/2019 ZOSTER VACCINES (1 of 2) 10/29/2019 DIABETIC EYE EXAM 05/27/2023 URINE MICROALBUMIN/CREATININ E RATIO 05/27/2023 INFLUENZA VACCINE (#1) 2024 COVID-19 VACCINE (4 - 2024-2 6 season) 2024 03/14/2021, 06/25/2020, 06/04/2020 BLOOD PRESSURE 01/12/2025 07/13/2024 [...] this topic Medical Devices Not on file Insurance [facility] Care Teams Debate Director Relationship Specialty Start Date End Date Michael Arriola MD [address] [place] [address] [place] [address] PCP - General Internal Medicine 01/11/23 Additional Source Comments The information contained in this document represents components of the legal health record. It is not the complete legal health record.[facility]
== END 2025-01-29 10:43 | disposition home or self-care (01) ==
LOC: HO.LNP 10:42
PROVIDERS: Visit Provider Internal Medicine
DX: E11.9 Type 2 diabetes mellitus without complications (principal); E78.00 Pure hypercholesterolemia, unspecified
CPT/HCPCS: 80061; 80076; 82947; 83036